=== PATIENT | female | born 1945 | race Caucasian/White ===

== ENCOUNTER 2024-01-06 07:14 | Day surgery (SDC) | payer MEDICARE, BC, SELFPAY ==
[2024-01-06 07:52] VITALS: BMI 19.1
== END 2024-01-06 09:15 | disposition home or self-care (01) ==
LOC: CATH 07:14
PROVIDERS: ATTENDING PHYSICIAN Internal Medicine Cardiovascular Disease; FAMILY PHYSICIAN Family Medicine; OTHER PHYSICIAN Internal Medicine Cardiovascular Disease
DX: I08.0 Rheumatic disorders of both mitral and aortic valves (principal); I25.10 Atherosclerotic heart disease of native coronary artery without angina pectoris; R06.02 Shortness of breath; I44.7 Left bundle-branch block, unspecified; I10 Essential (primary) hypertension; J44.9 Chronic obstructive pulmonary disease, unspecified; Z87.891 Personal history of nicotine dependence
CPT/HCPCS: 93312; 93320; 93325

== ENCOUNTER → 2024-02-06 10:03 | Outpatient (REF) | payer MEDICARE, BC, SELFPAY ==
[2024-02-06 11:06] LABS: Urine Albumin Trace (Neg - Trace); Urine Bilirubin Negative (Negative); Urine Character Clear (Clear); Urine Color Yellow; Urine Glucose Negative (Negative); Urine Ketone Negative (Negative); Urine Leukocyte Negative (Negative); Urine Nitrite Negative (Negative); Urine Occult Blood Trace (Negative); Urine Specific Gravity 1.015 (<1.030); Urine Urobilinogen Negative (Neg - 1+)
[2024-02-06 11:12] LABS: Calcium 11.6 mg/dl (8.4-10.2)
[2024-02-06 11:21] LABS: Total Iron Binding Capacity 323 ug/dl (265-497)
[2024-02-06 12:02] LABS: Urine Amorphous Seen; Urine Mucus Few
[2024-02-06 12:04] LABS: Urine Hyaline Cast 0-2 /LPF (0-2); Urine Red Blood Cell 0-2 /HPF (0-2)
[2024-02-06 16:08] LABS: Intact PTH 194.2 pg/ml (13.6-85.8)
== END ==
LOC: REG 10:03
PROVIDERS: ATTENDING PHYSICIAN Family Medicine
DX: R82.90 Unspecified abnormal findings in urine (principal); R06.02 Shortness of breath; I11.9 Hypertensive heart disease without heart failure; I10 Essential (primary) hypertension; J44.9 Chronic obstructive pulmonary disease, unspecified; E83.52 Hypercalcemia; I34.0 Nonrheumatic mitral (valve) insufficiency; R63.4 Abnormal weight loss; R79.9 Abnormal finding of blood chemistry, unspecified
CPT/HCPCS: 36415; 81003; 81015; 82103; 82104; 83519; 83550; 83970

== ENCOUNTER 2024-02-10 15:08 | Inpatient (IN) | payer MEDICARE, BC, SELFPAY ==
[2024-02-10] VITALS (13 sets, daily range): BP systolic 102–190; BP diastolic 44–126; BMI 18.9
--- NOTE | 2024-02-10 12:57 | ED.GENMED ---
History of Present Illness
General
Chief Complaint: Cardiac Symptoms
Source: patient
Exam Limitations: none
Time Seen by Provider: 02/10/24 12:43
Travel History
Have you had any contact with someone who has COVID-19?: No
Do you have any symptoms of coronavirus? Fever > 100 degrees, chills, cough, shortness of breath, sore throat, loss of taste or smell, muscle aches, or headache?: No
History of Present Illness
History of Present Illness:
See MDM
Past History
Past History
ED Past Medical History: COPD and HTN
Social History
Tobacco: Former smoker
Alcohol: None
Phy Exam
Physical Exam
Physical Exam:
See MDM
Course
Orders/Labs/Results
Orders:
Orders
02/10/24 12:31
Electrocardiogram (*1) Urgent
Reason for Study: Chest Pain
EKG- Treatment ONCE
02/10/24 12:54
Consult Cardiology [CARDIOLOGY CONSULT] Urgent
Consulting Provider: Flaquito Marcus
Was physician already notified: Yes
02/10/24 13:21
Type+Screen Urgent
Complete Blood Count/With Diff Urgent
Comprehensive Metabolic Panel Urgent
Magnesium Urgent
PTT Urgent
Prothrombin Time Urgent
02/10/24 13:50
Aspirin Chewable [Low Strength Aspirin] 324 mg PO NOW STA
02/10/24 13:52
HydrALAZINE [Apresoline] 5 mg IV NOW STA
02/10/24 14:30
Urinalysis Reflex To Culture Routine
02/10/24 14:34
Admit/Transfer Patient As Directed
Co-Sign Provider:
Level of Care: Inpatient admission
Assign to:: Telemetry
Physician / Group: jose
Diagnosis: NSVT
Reason for Telemetry: Arrhythmia
Date to Stop Telemetry: 02/13/24
Time to Stop Telemetry: 11:00
Reason for Hospitalization: NSVT
Expected length of stay greater than two midnights?: Yes
ELOS- Estimated Length of Stay in days: 3
I certify the patient meets the requirements for IP care: Yes
02/10/24 14:35
Code Status As Directed
Resuscitation Status: Full Code
02/10/24 18:00
HydrALAZINE [Apresoline] 5 mg IV Q4HPRN PRN
02/11/24 08:00
Aspirin Chewable [Low Strength Aspirin] 81 mg PO DAILY
02/13/24 11:00
DC Protocol for Telemetry ONCE
Abnormal Lab Results
02/10/24
13:21
WBC 12.7 H 10^3/uL
(4.8-10.8)
MPV 10.5 H fL
(7.4-10.4)
Abs Immat Gran (auto) 0.1 H 10^3/uL
(0-0.05)
Absolute Neuts (auto) 9.9 H 10^3/uL
(1.4-6.5)
Absolute Monos (auto) 1.0 H 10^3/uL
(0.1-0.6)
Neutrophils % 78.0 H %
(42.2-75.2)
Lymphocytes % 12.5 L %
(20.5-51.1)
BUN 22 H mg/dl
(7-17)
Calcium 11.6 H mg/dl
(8.4-10.2)
02/10/24 13:21
02/10/24 13:21
Vital Signs
Initial and Last Documented VS:
Initial Vital Signs
Temp Pulse Resp BP Pulse Ox
97.8 F 74 20 190/78 96
02/10/24 12:26 02/10/24 12:26 02/10/24 12:26 02/10/24 12:26 02/10/24 12:26
Last Documented Vital Signs
Temp Pulse Resp BP Pulse Ox
97.8 F 65 24 173/49 95
02/10/24 12:26 02/10/24 14:30 02/10/24 14:30 02/10/24 14:13 02/10/24 14:00
MDM/Problems Addressed
Differential Diagnosis Includes:
HPI and MDM Narrative:
78-year-old female presenting from the cardiac office for evaluation of nonsustained V. tach. This was a routine cardiac a stress test. When she was found going to be tach, she was sent in for lighted catheterization. Currently, patient denies
chest pain or shortness of breath
Patient is well-appearing and nontoxic exam. EKG consistent with left bundle branch block. She is currently denying any chest pain or shortness of breath. Will make cardiology aware
Physical exam
General: Well appearing and non-toxic
HEENT: protecting airway
Neck: appears supple
CV: No evidence of cyanosis. Regular rate and rhythm
Resp: No accessory muscle use. Lungs clear
Abd: Non-distended
Extremities: No deformities. No leg edema
Neuro: alert
Psych: Normal affect
Skin: Intact
Problems Addressed including Acute and Chronic Conditions affecting care:
1. V. tach
Acuity: acute
Prognosis: unstable
Details: Patient currently in sinus rhythm. Given the recent V. tach on the stress test, will have cardiology evaluate.
Updates
Patient remains symptom-free. Cardiology at bedside. Will admit
Differential Diagnosis (but not limited to): V. tach, ACS
Testing considered: Chest x-ray
Drug therapy (if applicable): OTC meds, please see d/c instruction regarding Rx drugs
Amount and/or Complexity of Data Reviewed
Clinical info obtained from: Patient
External data reviewed: N/A
Labs I independently reviewed (but not limited to): [Mild leukocytosis
Radiology: N/A
Pulse Ox: not hypoxic
EKG independently reviewed: Sinus rhythm, left axis, left bundle but
Cash Grain Grower: Sinus rhythm
Critical Care: N/A
Risk of Complication:
Social Determinants of health: Good social support
Discussed with other providers: Cardiology
Escalation of Care includes Admit/Obs: Given the V. tach, will admit for cath
Occasional wrong word or 'sound a like' substitutions may have occurred due to the inherent limitations of voice recognition software. Read the chart carefully and recognize, using context, where substitutions have occurred.
*Critical Care Note
Total Time (30-74mins, 75-104mins- exclusive of procedures): Not Applicable
ED Attending Note
-
Portions of this chart may have been created with voice recognition software.� Occasional wrong word or��sound alike� substitutions may have occurred due to the inherent limitations of voice recognition software.
Discharge Plan
Departure
Patient Disposition: Admit
Date of Disposition: 02/10/24
Time of Disposition: 14:20
Admit to: IVU
Presentation/result/management discussed w/ accepting MD/DO: Hospitalist
Discharge Problem:
V-tach
Prescriptions:
No Action
diltiazem HCl 120 mg Capsule,Extended Release 24 Hr
120 mg PO DAILY
lisinopril 10 mg Tablet
10 mg PO QPM
Ocuvite Tablet
1 tab PO BID
rosuvastatin 10 mg Tablet
10 mg PO QPM
bisoprolol fumarate 5 mg Tablet
5 mg PO DAILY@1100
Trelegy Ellipta 100-62.5-25 mcg Blister With Device
1 inh INHALATION R DAILY
Referrals:
Quita Lopez MD [Family Provider] -
Interventions
Interventions:
*Risk Screen - Suicide Last Done: 02/10/24 12:26
*General Assessment Last Done: 02/10/24 12:26
*Neglect/Abuse Screening Last Done: 02/10/24 12:26
ED- Fall Risk Assessment Last Done: 02/10/24 12:57
ED- Pulmonary Assessment Last Done: 02/10/24 12:57
ED- Cardiac Assessment Last Done: 02/10/24 12:56
Discharge Date and Time
Print Language: [place]
[2024-02-10 13:37] LABS: % Basophils 0.6 % (0-2); % Eosinophils 0.9 % (0-6); % Immature Granulocytes 0.4 % (0-0.5); % Lymphocytes 12.5 % (20.5-51.1); % Monocytes 7.6 % (1.7-9.3); Absolute Basophils 0.1 10^3/uL (0-0.2); Absolute Eosinophils 0.1 10^3/uL (0-0.7); Absolute Immature Granulocytes 0.1 10^3/uL (0-0.05); Absolute Lymphocytes 1.6 10^3/uL (1.2-3.4); Absolute Neutrophils 9.9 10^3/uL (1.4-6.5); Hematocrit 42.1 % (37.0-47.0); Hemoglobin 13.9 g/dL (12.0-16.0); Mean Corpuscular Volume 93.8 fL (81.0-99.0); Mean Platelet Volume 10.5 fL (7.4-10.4); Nucleated Red Blood Cells % 0 %; Platelet Count 276 10^3/uL (130-400); Red Blood Cell Count 4.49 10^6/uL (4.20-5.40); White Blood Cell Count 12.7 10^3/uL (4.8-10.8)
--- NOTE | 2024-02-10 13:41 | CON.CAR ---
Addendum entered and electronically signed by Flaquito Marcus MD 02/10/24 14:59:
Patient seen and examined in collaboration with PARTY CHIEF; agree with below.
-78-year-old female with hypertension, LBBB, COPD, hypercalcemia, and moderate aortic regurgitation referred to the ER after having NSVT on a stress test.
-The patient denies any current cardiac symptoms.
-The patient will be preliminarily scheduled for cardiac catheterization tomorrow; keep NPO after midnight.
-Trend WBC (12.7--etiology unclear); workup/management as per primary Hospitalist team.
-Hypercalcemia (11.6--etiology unclear); workup/management as per primary Hospitalist team.
-threat monitoring analyst.
Original Note:
Consultation
Consultation Request
Date/Time Consultation Requested: 02/10/2024 12:54
Date/Time Consultation Performed: 02/10/2024 13:10
Requesting Provider: Dr. Acevedo
Performing Provider: KELLEN Daniels for Dr. Marcus
Reason for Consultation: Abnormal Lexiscan nuclear stress test
Medical History
-
Chief Complaint: Abnormal stress test
History of Present Illness:
Nessa Resendiz is a 78-year-old female (known to Dr. Gillis, her primary audio production manager), with hypertension, LBBB, COPD, hypercalcemia, former smoker, aortic regurgitation, and mildly dilated ascending aorta who presents after having an abnormal
Lexiscan nuclear stress test. She had NSVT during testing. Nuclear imaging with possible prior infarct. She did not have any chest pain nor shortness of breath with the arrhythmia. The stress test was prompted by complaints of shortness of
breath. She had her aortic regurgitation evaluated by SHELDON and it was moderate in severity. Ischemic causes being evaluated for shortness of breath.
She is supposed to leave on 02/13/2024 for her 79th birthday trip to [place].
Past Medical History
Past Medical History: COPD and HTN
Allergies / Home Medications
Allergy/AdvReac Type Severity Reaction Status Date / Time
No Known Allergies Allergy Verified 02/10/24 12:30
�Medication �Instructions �Recorded �Confirmed �Type
diltiazem HCl 120 mg capsule,24 120 mg PO DAILY 01/06/24 02/10/24 History
hr,extended release
lisinopril 10 mg tablet 10 mg PO QPM 01/06/24 02/10/24 History
rosuvastatin 10 mg tablet 10 mg PO QPM 01/06/24 02/10/24 History
vitamin A-vitamin C-vit E-min 1 tab PO BID 01/06/24 02/10/24 History
tablet
bisoprolol fumarate 5 mg tablet 5 mg PO DAILY@1100 02/10/24 02/10/24 History
fluticasone fur. 100 mcg-umeclid 1 inh inhalation R DAILY 02/10/24 02/10/24 History
62.5 mcg-vilant 25 mcg
inhalat.powder (Trelegy Ellipta)
Physical Exam
Vital Signs
Temp Pulse Resp BP Pulse Ox
97.8 F 74 20 190/78 96
02/10/24 12:26 02/10/24 12:26 02/10/24 12:26 02/10/24 12:26 02/10/24 12:26
Lab Results
02/10/24 13:21
Impression / Plan
-
Abnormal stress test
Ventricular tachycardia
-Chest pain-free
-Cardiac catheterization
-She did not take her bisoprolol today, consider transitioning to metoprolol
-She is not an ideal candidate for amiodarone given her lung disease
Hypertension
-Above goal, hydralazine 5 mg IV x 1 now
-Hold NILA in the setting of cardiac catheterization
Aortic regurgitation, moderate, eccentric
Mildly dilated ascending aorta, 4.1 cm by SHELDON
Coronary artery calcification on CT, started on rosuvastatin 10 mg
LBBB, present as a new patient for office visit, likely chronic
COPD, on Trelegy, follows with pulmonary in the outpatient setting
Hypercalcemia, with elevated PTH
Former smoker, continue cessation recommended
[2024-02-10 13:48] LABS: ALT (SGPT) 21 U/L (0-35); AST (SGOT) 26 U/L (14-36); Albumin 4.6 g/dl (3.5-5.0); Alkaline Phosphatase 94 U/L (38-126); Blood Urea Nitrogen 22 mg/dl (7-17); Calcium 11.6 mg/dl (8.4-10.2); Carbon Dioxide 29 mmol/L (22-30); Chloride 104 mmol/L (98-107); Glucose 95 mg/dl (70-99); Magnesium 1.6 mg/dl (1.6-2.3); Potassium 4.1 mmol/L (3.5-5.1); Sodium 138 mmol/L (135-145); Total Bilirubin 0.7 mg/dl (0.2-1.3); Total Protein 7.4 g/dl (6.3-8.2); eGFR > 60.00
[2024-02-10 13:50] LABS: APTT 27.5 Sec (23.4-35.0); INR 1.07; PT 13.8 Sec (11.4-14.6)
--- NOTE | 2024-02-10 14:04 | HPS.HSE ---
Family Physician
<KELLEN Martin - Last Filed: 02/10/24 14:39>
-
Family Physician: Quita Lopez
Chief Complaint
<KELLEN Martin - Last Filed: 02/10/24 14:39>
-
abnormal stress test
History of Present Illness
Nessa Resendiz is a 78-year-old female with PMH for hypertension, LBBB, COPD, hypercalcemia, former smoker, aortic regurgitation, and mildly dilated ascending aorta who presents after having an abnormal Lexiscan nuclear stress test. She had NSVT during
testing. patient denied any chest pain nor shortness of breath. she had stress test due to the abnormal EKG in the past. denied headache, dizziness, syncopal episode patient denied abdominal pain, nausea, vomiting, diarrhea. Patient denied dysuria
hematuria.
Medical History
<KELLEN Martin - Last Filed: 02/10/24 14:39>
Past Medical History
Past Medical History: Reports Other
Additional Past Medical History:
COPD
Hypertension
Mitral regurgitation
Left bundle branch block
Cataracts
Irregular heartbeat
Past Surgical History: Reports Other
Additional Past Surgical History:
Left elbow fracture repair
Left eye cataract surgery
Social History
Tobacco: Former Smoker
Alcohol: Occasional
Drug: None
Family History
Family History: Not pertinent
Allergies / Home Medications
Allergies reflects when Allergies were last updated in [employer].
Home Medications with original date entered in [employer]
Allergy/Medication List:
Allergies
Allergy/AdvReac Type Severity Reaction Status Date / Time
No Known Allergies Allergy Verified 02/10/24 12:30
Home Medications
diltiazem HCl 120 mg capsule,24 hr,extended release 120 mg PO DAILY 01/06/24
lisinopril 10 mg tablet 10 mg PO QPM 01/06/24
rosuvastatin 10 mg tablet 10 mg PO QPM 01/06/24
vitamin A-vitamin C-vit E-min tablet 1 tab PO BID 01/06/24
bisoprolol fumarate 5 mg tablet 5 mg PO DAILY@1100 02/10/24
fluticasone fur. 100 mcg-umeclid 62.5 mcg-vilant 25 mcg inhalat.powder (Trelegy Ellipta) 1 inh inhalation R DAILY 02/10/24
Review of Systems
<KELLEN Martin - Last Filed: 02/10/24 14:39>
-
Constitutional: Reports No Symptoms
EENT: Reports No Symptoms
Respiratory: Reports No Symptoms
Cardiac: Reports No Symptoms
Abdomen/GI: Reports No Symptoms
: Reports No Symptoms
Musculoskeletal: Reports No Symptoms
Skin: Reports No Symptoms
Neurological: Reports No Symptoms
Endocrine: Reports No Symptoms
Hematologic/Lymphatic: Reports No Symptoms
Psych: Reports No Symptoms
Physical Exam
<KELLEN Martin - Last Filed: 02/10/24 14:39>
Vital Signs
Vital Signs
Temp Pulse Resp BP Pulse Ox
97.8 F 74 20 190/78 96
02/10/24 12:26 02/10/24 12:26 02/10/24 12:26 02/10/24 12:26 02/10/24 12:26
Physical Exam
General: Well Developed, Well Nourished and No Apparent Distress
HEENT: NormoCephalic, Moist mucous membranes and Atraumatic
Respiratory: Clear
Cardiac: S1/S2 and Regular Rhythm; No Murmur or Rub
GI: Soft, Non Tender, Non Distended and Normal Bowel Sounds; No Organomegaly
Rectal: Deferred by Provider
Musculoskeletal: No Clubbing, No Cyanosis and No Edema
Skin: No Rash
Neuro: AO x 3 and Nonfocal/grossly intact
Psych: Calm
Laboratory Results
<KELLEN Martin - Last Filed: 02/10/24 14:39>
-
02/10/24 13:21
02/10/24 13:21
Laboratory Results
PT 13.8 Sec (11.4-14.6) 02/10/24 13:21
INR 1.07 02/10/24 13:21
APTT 27.5 Sec (23.4-35.0) 02/10/24 13:21
Total Bilirubin 0.7 mg/dl (0.2-1.3) 02/10/24 13:21
AST 26 U/L (14-36) 02/10/24 13:21
ALT 21 U/L (0-35) 02/10/24 13:21
Alkaline Phosphatase 94 U/L (38-126) 02/10/24 13:21
Data Reviewed
<KELLEN Martin - Last Filed: 02/10/24 14:39>
-
Lab Data: Labs Reviewed by me
Impression/Plan
<KELLEN Martin - Last Filed: 02/10/24 14:39>
-
# Ventricular tachycardia
-EKG with sinus Rhythm with 1st degree AV block,
-trend trop and EKGs
-Cardiology following
# Leukocytosis likely stress
-WBC 12.7, afebrile
-Obtain urinalysis
# Hypertension urgency
-Blood pressure elevated in ER
-Received a dose of hydralazine in ER
-bisoprolol, diltiazem continued
-Hold lisinopril
# History of COPD
-Not in acute exacerbation
-Trelegy continued
# Hyperlipidemia
-Statin continued
# DVT prophylaxis
-SCD
# CODE STATUS
-Full code
<Marleni Pichardo MD - Last Filed: 02/10/24 16:25>
-
78 y/o female underwent stress echo with VT admitted for cath tomorrow..
I saw and examined the patient.
Denies any complaints
The BUNDLES HANGER or PA's note was reviewed and I agree with the note.
CVS: S1-S2 normal
Chest: CTA B/L
Abdomen: Soft, NT / Bowel sounds present
Extremities: No edema, normal pulses
DTP OPERATOR: Non focal exam
# Ventricular tachycardia
-EKG with sinus Rhythm with 1st degree AV block,
-trend trop and EKGs
-Cardiology following
# LBBB
# Leukocytosis likely stress
-WBC 12.7, afebrile
-Obtain urinalysis
# Hypertension urgency
-Blood pressure elevated in ER
-Received a dose of hydralazine in ER
-Bisoprolol, diltiazem 120 daily
-Cardiology wants to hold lisinopril for cath
# History of COPD
-Not in acute exacerbation
-Trelegy continued
-Stable
-Normal alpha one antitrypsin level
# Low normal Mag- Replace in the setting of Arrhythmias
# Hypercalcemia is NOT NEW
-Calcium was 10.11 Sep 2023
-Patient already has diagnosed hyperparathyroidism per labs- being worked up by PCP
-No H/O Kidney stones
-She does not take calcium supplements . Takes Vit D
-She is not sure what her 24 hour urine showed.
- Sestamibi Scan can be considered as OP
-May benefit from Bisphosphonates/calcimimetics (Cinacalcet)
-OP Endocrine eval.
# Hyperlipidemia/Atherosclerosis
-Statin
# 6.4 cm cyst in the dome of the liver
# Diverticulosis
# DVT prophylaxis
-Lovenox
# CODE STATUS
-Full code
[2024-02-10] MEDS: LOW STRENGTH ASPIRIN 324 MG PO (14:12)
[2024-02-10] MEDS: APRESOLINE 5 MG IV (14:13)
[2024-02-10] MEDS: MAGNESIUM SULFATE 50 IV (15:45)
[2024-02-10] MEDS: CRESTOR 10 MG PO (18:39)
[2024-02-10] MEDS: LOVENOX 40 MG SC (18:39)
[2024-02-10 20:04] LABS: Troponin I 0.021 ng/ml
[2024-02-10] MEDS: SYMBICORT 80/4.5 MCG INHALER INH (20:44)
[2024-02-10 22:50] LABS: Troponin I 0.026 ng/ml
[2024-02-11] VITALS (13 sets, daily range): BP systolic 111–186; BP diastolic 45–90; BMI 19.0
[2024-02-11 01:54] LABS: Troponin I 0.029 ng/ml
[2024-02-11 04:58] LABS: Hematocrit 37.6 % (37.0-47.0); Hemoglobin 12.5 g/dL (12.0-16.0); Mean Corp Hgb Conc. 33.2 g/dL (33.0-37.0); Mean Corpuscular Hgb 32.1 pg (27.0-31.0); Mean Corpuscular Volume 96.4 fL (81.0-99.0); Mean Platelet Volume 9.9 fL (7.4-10.4); Platelet Count 209 10^3/uL (130-400); Red Cell Dist. Width 13.1 % (11.5-14.5); White Blood Cell Count 8.6 10^3/uL (4.8-10.8)
[2024-02-11 05:27] LABS: Blood Urea Nitrogen 29 mg/dl (7-17); Calcium 10.7 mg/dl (8.4-10.2); Carbon Dioxide 26 mmol/L (22-30); Chloride 108 mmol/L (98-107); Estimated Creatinine Clearance 60 ml/min; Glucose 104 mg/dl (70-99); HDL Cholesterol 86 mg/dl; Potassium 4.3 mmol/L (3.5-5.1); Sodium 137 mmol/L (135-145); Triglyceride 86 mg/dl (10-149); Very Low Density Lipoprotein 17 mg/dl (0-30); eGFR > 60.00
[2024-02-11 05:28] LABS: LDL Cholesterol, Calculated 52 mg/dl; Total Cholesterol 155 mg/dl (50-199)
--- NOTE | 2024-02-11 05:37 | PTCARENOTE ---
Patient received from ED, walked into room, gait steady, denies pain or SOB. NSR 1st degree HB, BBB. NPO for cardiac catheterization today, lights dimmed, call love in reach
--- NOTE | 2024-02-11 08:00 | PTCARENOTE ---
Patient received from prev RN. denies pain or SOB. NSR 1st degree HB, BBB. NPO for cardiac catheterization today. walking halls. independent in care. daughter at bedside. RA. no complaints. will continue ot monitor.
[2024-02-11] MEDS: SYMBICORT 80/4.5 MCG INHALER 2 PUFF INH (08:58)
[2024-02-11] MEDS: SPIRIVA RESPIMAT 2.5 MCG 2 PUFF INH (08:59)
[2024-02-11 09:24] LABS: Glycohemoglobin (HgbA1c) 5.3 % (4.0-5.6)
[2024-02-11] MEDS: CARDIZEM CD 120 MG PO (09:42)
[2024-02-11] MEDS: LOW STRENGTH ASPIRIN 81 MG PO (09:43)
--- NOTE | 2024-02-11 10:16 | W.PN.HOSP.TC ---
Today's Communication/Plan
-
Cath today
Assessment / Plan
Assessment / Plan
CVS: S1-S2 normal
Chest: CTA B/L
Abdomen: Soft, NT / Bowel sounds present
Extremities: No edema, normal pulses
GEOPHYSICAL DATA TECHNICIAN: Non focal exam
# Ventricular tachycardia
-EKG with sinus Rhythm with 1st degree AV block.
-Trend trop and EKGs
-Cardiology following
# LBBB
# Leukocytosis likely stress
-Resolved
# Hypertension urgency
-Blood pressure elevated in ER
-Received a dose of hydralazine in ER
-Bisoprolol, diltiazem 120 daily, Restart Lisinopril
# History of COPD
-Not in acute exacerbation
-Trelegy
-Stable
-Normal alpha one antitrypsin level
# Low normal Mag- Replace in the setting of Arrhythmias
# Hypercalcemia is NOT NEW
-Calcium was 10.11 Sep 2023
-Patient already has diagnosed hyperparathyroidism per labs- being worked up by PCP
-No H/O Kidney stones
-She does not take calcium supplements . Takes Vit D
-She is not sure what her 24 hour urine showed.
-Sestamibi Scan can be considered as OP
-May benefit from Bisphosphonates/calcimimetics (Cinacalcet)
-OP Endocrine eval.
-Calcium 10.7 today. Suspect calcium was high yesterday secondary to dehydration from being n.p.o. for stress test
# Hyperlipidemia/Atherosclerosis
-Statin
# 6.4 cm cyst in the dome of the liver
# Diverticulosis
# DVT prophylaxis
-Lovenox
# CODE STATUS
-Full code
Discussed with nursing
Anticipated Discharge: Within 24 hours
Subjective/Interval History
-
Date of Service: February 11, 2024
Objective Data
-
Labs:
Laboratory Results
02/11/24
04:47
WBC 8.6
Hgb 12.5
Hct 37.6
Plt Count 209 D
Sodium 137
Potassium 4.3
Chloride 108 H
Carbon Dioxide 26
BUN 29 H
Creatinine 0.6
Glucose 104 H
Calcium 10.7 H
Vital Signs:
Vital Signs
Temp Pulse Resp BP Pulse Ox
98.2 F 71 18 169/55 94
02/11/24 07:22 02/11/24 09:42 02/11/24 07:22 02/11/24 09:42 02/11/24 07:22
[2024-02-11] MEDS: ZEBETA 5 MG PO (11:09)
[2024-02-11] MEDS: NSS 1000 IV (11:13)
--- NOTE | 2024-02-11 11:28 | CM ---
Chart reviewed. Patient is independent of ADLS, lives alone in a 2 STH, 1 VAL, 0 DME. Plan is for the patient to return home. CM to follow
--- NOTE | 2024-02-11 15:00 | PTCARENOTE ---
upset about being NPO all day and night without update on cath time. continuously asking for update even though i have checked again and again and have no update. attempting to provide emotional support. telling me they will leave if they dont get
medical care. attempting to deescalate situation. will continue ot monitor.
--- NOTE | 2024-02-11 15:57 | W.PN.CD ---
Today's Communication / Plan
-
Cardiac catheterization today.
Impression / Plan
-
Impression/Plan: 78 y/o female with coronary artery calcification, HTN, former smoker, COPD and LBBB admitted with VT after stress test.
#Abnormal stress test/Ventricular tachycardia
-Chest pain-free.
-Troponin negative.
-Cardiac catheterization.
Hypertension
-Chronic, above goal.
-Continue bisoprolol, diltiazem. ACEI on hold in anticipation of cardiac catheterization.
-Hydralazine 5 mg IV PRN SBP > 180.
#Coronary artery calcification on CT
-Chronic, stable.
-Started on rosuvastatin 10 mg.
#COPD
-Stable, not in exacerbation.
-Continue Trelegy.
-Follow up with pulmonary in the outpatient setting.
#Aortic regurgitation, moderate, eccentric.
#Mildly dilated ascending aorta, 4.1 cm by SHELDON.
#LBBB, present as a new patient for office visit, likely chronic.
#Hypercalcemia, with elevated PTH
#Former smoker, continue cessation recommended
Subjective/Interval History:
No acute events.
No subjective complaints.
Mild/moderate hypertension.
DATA:
TTE, 10/16/2023:
CONCLUSIONS
Left ventricle is moderately dilated with severe concentric hypertrophy and
normal left ventricular systolic function. Left ventricular ejection fraction
is 76%, by Lemus' s method. Normal diastolic function.
Normal right ventricular size and function.
Moderate left atrial dilation.
Mild right atrial dilation.
Mild to moderate mitral regurgitation. There is systolic anterior motion of
the chordae without LVOT obstruction.
Moderate aortic root dilation for BSA. Ascending aorta is 4.1 cm.
No evidence of pulmonary hypertension.
No prior study available for comparison.
Physical Exam
Vital Signs/Labs
Vital Signs
Temp Pulse Resp BP Pulse Ox
36.7 C 65 18 148/60 93
02/11/24 15:30 02/11/24 15:00 02/11/24 15:30 02/11/24 11:09 02/11/24 15:30
02/10/24 02/11/24 02/12/24
11:59 11:59 11:59
Actual Weight 50.3 kg 50.2 kg
02/11/24 04:47
02/11/24 04:47
PT 13.8 Sec (11.4-14.6) 02/10/24 13:21
INR 1.07 02/10/24 13:21
APTT 27.5 Sec (23.4-35.0) 02/10/24 13:21
Magnesium 1.6 mg/dl (1.6-2.3) 02/10/24 13:21
Triglycerides 86 mg/dl (10-149) 02/11/24 04:47
LDL Cholesterol, Calc 52 mg/dl 02/11/24 04:47
VLDL Cholesterol, Calc 17 mg/dl (0-30) 02/11/24 04:47
HDL Cholesterol 86 mg/dl 02/11/24 04:47
LAB Results
02/10/24 02/10/24 02/11/24
19:29 22:18 01:15
Troponin I 0.021 0.026 0.029
Physical Exam
Constitutional: No acute distress
EENT: Anicteric and Moist mucous membranes
Cardiovascular: Rhythm & rate is regular, Pedal edema is absent, JVD pressure is normal, S1S2 is normal and Murmur/rub/gallop absent
Respiratory: Respiratory effort normal and Other (Decreased throughout.)
GI: Soft, Distention absent, Flat, Non tender and Normal bowel sounds
Neuro/Psych: AO x 3
Data Reviewed
-
Date of Service: February 11, 2024
Medical Decision Making: Reviewed Test Results, Independent Historian Assessment, Test Interpretation and Review of Case with other Provider
EKG: Tracing Personally Visualized and interpreted and Report Reviewed by me
Echo: Tracing Personally Visualized and interpreted and Report Reviewed by me
X-Ray/CT/US/MRI/NUC/PET: Image Personally Visualized and interpreted and Report Reviewed by me
Medical Tests (PFT, Pathology etc): Image Personally Visualized and interpreted and Report Reviewed by me
Labs: Labs Reviewed by me
--- NOTE | 2024-02-11 17:25 | PTCARENOTE ---
Patient left for stores laborer. Daughter at bedside.
--- NOTE | 2024-02-11 18:16 | ITS.CL.CATH ---
Residential Real Estate Sales Manager - Catheterization
Cardiac Catheterization
Procedure Report:
CARDIAC CATHETERIZATION REPORT
Date of Procedure: 02/11/2024
Referring: Flaquito Marcus M.D.
INDICATION: Nonsustained ventricular tachycardia during regadenoson stress test.
PROCEDURE:
1. Left heart catheterization.
2. Coronary angiography
ACCESS:
6 German right radial artery.
CATHETERS:
1. 5 German JR4.
2. 4 German JL 4.
HEMODYNAMIC DATA
Weight (kg): 50.3
AO (s/d/x, mmHg): 177/68/100
LV (s/x mmHg): 180/25
LEFT VENTRICULOGRAPHY: Not performed.
CORONARY ANGIOGRAPHY
Dominance: Right.
Left Main: Large size, trifurcating vessel. There is no coronary artery disease.
LAD: Large size vessel giving rise to 2 significant diagonals. There is at least moderate external calcification. There is a 40% lesion in the ostium of the first diagonal.
Ramus: Medium to large artery supplying the majority of the lateral/anterolateral wall. There is no coronary artery disease.
Circumflex: Small size, vestigial vessel running in the AV groove. There is no coronary artery disease.
RCA: Large size, dominant vessel with an enormous posterolateral arcade. There is no coronary artery disease.
INTERVENTION(S)
None.
Closure Device: Vascular band.
Radiation (mGy): 174.78
DAP (cm2.Gy): 11.8686
Fluoroscopy time (minutes): 6.7
Sedation time (minutes): 26
CONCLUSIONS
1. Right dominant circulation with moderate, external calcification of the LAD and a 40% lesion in the ostium of the first diagonal.
2. Severely elevated filling pressures (LVEDP = 25 mmHg at 50.3 kg).
3. Severe subclavian, brachial and radial artery tortuosity with multiple vessel loops, requiring transition to 4 German catheters and an Amplatz extra-stiff wire for catheter exchanges.
4. No obvious ischemic source of ventricular tachycardia.
RECOMMENDATIONS:
1. Expectant management after cardiac catheterization via right radial approach.
2. Limited weight bearing on the right wrist for one week.
3. Primary prevention with high-dose, high potency statin given coronary artery calcification.
4. Consider diuresis given severe elevation of filling pressures.
5. Any future cardiac catheterization should be performed from a femoral approach given the severe tortuosity of the radial/brachial/subclavian system.
Copy to: Isrrael Zepeda M.D., Flaquito Marcus M.D., Quita Lopez M.D.
Juliocesar Lou DO, FACC, FACP
[2024-02-11] MEDS: CRESTOR 10 MG PO (18:43)
[2024-02-11] MEDS: ZESTRIL 10 MG PO (18:44)
[2024-02-11] MEDS: LOVENOX SC ×2 (18:44→18:47)
--- NOTE | 2024-02-11 18:47 | PTCARENOTE ---
Received patient from laboratory director. Patient agitated and angry that RN is taking her BP. Patient instructed to not use her right hand to push herself out of bed. Patient attempted to get OOb x2 without calling and insists aon using her right hand to
push herself up.
[2024-02-11] MEDS: SYMBICORT 80/4.5 MCG INHALER INH (19:31)
[2024-02-12] MEDS: TYLENOL 650 MG PO (00:51)
[2024-02-12 00:57] VITALS: BP 149/50
--- NOTE | 2024-02-12 00:59 | PTCARENOTE ---
R radial band off after multiple attempts to remove air but continued oozing.
[2024-02-12 04:26] VITALS: BP 140/52
[2024-02-12 05:21] LABS: Hematocrit 36.6 % (37.0-47.0); Hemoglobin 12.1 g/dL (12.0-16.0); Mean Corp Hgb Conc. 33.1 g/dL (33.0-37.0); Mean Corpuscular Hgb 31.4 pg (27.0-31.0); Mean Corpuscular Volume 95.1 fL (81.0-99.0); Mean Platelet Volume 10.4 fL (7.4-10.4); Platelet Count 210 10^3/uL (130-400); Red Blood Cell Count 3.85 10^6/uL (4.20-5.40); Red Cell Dist. Width 12.9 % (11.5-14.5); White Blood Cell Count 8.8 10^3/uL (4.8-10.8)
[2024-02-12 05:57] LABS: Blood Urea Nitrogen 24 mg/dl (7-17); Calcium 10.3 mg/dl (8.4-10.2); Carbon Dioxide 25 mmol/L (22-30); Chloride 110 mmol/L (98-107); Estimated Creatinine Clearance 60 ml/min; Glucose 94 mg/dl (70-99); Potassium 4.3 mmol/L (3.5-5.1); Sodium 137 mmol/L (135-145); eGFR > 60.00
[2024-02-12 06:48] VITALS: BP 145/58
--- NOTE | 2024-02-12 07:14 | W.PN.CD ---
Today's Communication / Plan
-
Start furosemide 40 mg PO daily today.
Life-Vest.
Discharge planning.
Impression / Plan
-
Impression/Plan: 78 y/o female with coronary artery calcification, HTN, former smoker, COPD and LBBB admitted with VT after stress test.
#Abnormal stress test/Ventricular tachycardia
-Chest pain-free.
-Troponin negative.
-SHELDON (01/06/2024) shows LVEF 55-60%.
-Cardiac catheterization shows no occlusive CAD. LVEDP at the time of cath is severely elevated at 25 mmHg.
-She does report dyspnea on exertion but no chest pain. Star furosemide 40 mg daily this morning.
-After review with EP, the patient does have concerning VT and would benefit from Life-Vest for outpatient monitoring/protection.
Hypertension
-Chronic, above goal.
-Continue bisoprolol, diltiazem. ACEI on hold in anticipation of cardiac catheterization.
-Hydralazine 5 mg IV PRN SBP > 180.
#Coronary artery calcification on CT
-Chronic, stable.
-Increase rosuvastatin to 20 mg.
#COPD
-Stable, not in exacerbation.
-Continue Trelegy.
-Follow up with pulmonary in the outpatient setting.
#Aortic regurgitation, moderate, eccentric.
#Mildly dilated ascending aorta, 4.1 cm by SHELDON.
#LBBB, present as a new patient for office visit, likely chronic.
#Hypercalcemia, with elevated PTH
#Former smoker, continue cessation recommended
Subjective/Interval History:
Cath yesterday shows a 40% ostial diagonal, no nidus for VT.
LVEDP is severely elevated (25 mmHg).
DATA:
Cardiac Catheterization, 02/11/2024:
CONCLUSIONS
1. Right dominant circulation with moderate, external calcification of the LAD and a 40% lesion in the ostium of the first diagonal.
2. Severely elevated filling pressures (LVEDP = 25 mmHg at 50.3 kg).
3. Severe subclavian, brachial and radial artery tortuosity with multiple vessel loops, requiring transition to 4 Vietnamese catheters and an Amplatz extra-stiff wire for catheter exchanges.
4. No obvious ischemic source of ventricular tachycardia.
TTE, 10/16/2023:
CONCLUSIONS
Left ventricle is moderately dilated with severe concentric hypertrophy and
normal left ventricular systolic function. Left ventricular ejection fraction
is 76%, by Lemus' s method. Normal diastolic function.
Normal right ventricular size and function.
Moderate left atrial dilation.
Mild right atrial dilation.
Mild to moderate mitral regurgitation. There is systolic anterior motion of
the chordae without LVOT obstruction.
Moderate aortic root dilation for BSA. Ascending aorta is 4.1 cm.
No evidence of pulmonary hypertension.
No prior study available for comparison.
Physical Exam
Vital Signs/Labs
Vital Signs
Temp Pulse Resp BP Pulse Ox
36.7 C 67 18 145/58 96
02/12/24 04:44 02/12/24 07:00 02/12/24 04:44 02/12/24 06:48 02/12/24 04:44
02/10/24 02/11/24 02/12/24
11:59 11:59 11:59
Actual Weight 50.3 kg 50.2 kg
02/12/24 04:34
02/12/24 04:34
PT 13.8 Sec (11.4-14.6) 02/10/24 13:21
INR 1.07 02/10/24 13:21
APTT 27.5 Sec (23.4-35.0) 02/10/24 13:21
Magnesium 1.6 mg/dl (1.6-2.3) 02/10/24 13:21
Triglycerides 86 mg/dl (10-149) 02/11/24 04:47
LDL Cholesterol, Calc 52 mg/dl 02/11/24 04:47
VLDL Cholesterol, Calc 17 mg/dl (0-30) 02/11/24 04:47
HDL Cholesterol 86 mg/dl 02/11/24 04:47
LAB Results
02/10/24 02/10/24 02/11/24
19:29 22:18 01:15
Troponin I 0.021 0.026 0.029
Physical Exam
Constitutional: No acute distress and Comfortable
EENT: Anicteric and Moist mucous membranes
Cardiovascular: Rhythm & rate is regular, Pedal edema is absent, JVD pressure is normal, S1S2 is normal and Murmur/rub/gallop absent
Respiratory: Respiratory effort normal, Lungs clear to auscul., Wheeze Absent, Crackles Absent and Rhonchi Absent
GI: Soft, Distention absent, Flat, Non tender and Normal bowel sounds
Neuro/Psych: AO x 3
Other: Cath Site (Right radial access site is C/D/I.)
Data Reviewed
-
Date of Service: February 12, 2024
Medical Decision Making: Reviewed Test Results, Independent Historian Assessment and Test Interpretation
EKG: Tracing Personally Visualized and interpreted and Report Reviewed by me
Echo: Tracing Personally Visualized and interpreted and Report Reviewed by me
X-Ray/CT/US/MRI/NUC/PET: Image Personally Visualized and interpreted and Report Reviewed by me
Medical Tests (PFT, Pathology etc): Image Personally Visualized and interpreted and Report Reviewed by me
Labs: Labs Reviewed by me
[2024-02-12] MEDS: SPIRIVA RESPIMAT 2.5 MCG INH (07:19)
[2024-02-12] MEDS: SYMBICORT 80/4.5 MCG INHALER INH (07:19)
[2024-02-12] MEDS: CARDIZEM CD 120 MG PO (08:14)
[2024-02-12] MEDS: LOW STRENGTH ASPIRIN 81 MG PO (08:15)
--- NOTE | 2024-02-12 08:23 | PTCARENOTE ---
Rec'd pt this shift awake and alert ambulating in room and in hallway. Pt NSR on monitor with no complaints. See worklist for VS/I and O and assessments.
[2024-02-12] MEDS: LASIX 40 MG PO (09:39)
--- NOTE | 2024-02-12 10:23 | W.PN.HOSP.TC ---
Today's Communication/Plan
-
Lasix
Discharge planning
Assessment / Plan
Assessment / Plan
CVS: S1-S2 normal
Chest: CTA B/L
Abdomen: Soft, NT / Bowel sounds present
Extremities: No edema, normal pulses
ORCHID HAND: Non focal exam
# Ventricular tachycardia during stress ECHO
-Left heart catheterization 02/12/2024-right dominant circulation with moderate calcification of the LAD and 40% lesion in the ostium of the first diagonal. Elevated filling pressures 25 mmHg.
-EP evaluation
-LifeVest planned for discharge
# LBBB-chronic
# Leukocytosis likely stress
-Resolved
# Hypertension urgency
-Blood pressure elevated in ER
-Received a dose of hydralazine in ER
-Bisoprolol, diltiazem 120 daily, Lisinopril
-Blood pressure stable
# History of COPD
-Not in acute exacerbation
-Trelegy
-Stable
-Normal alpha one antitrypsin level
# Low normal Mag- Replaced in the setting of Arrhythmias
# Hypercalcemia is NOT NEW
-Calcium was 10.11 Sep 2023
-Patient already has diagnosed hyperparathyroidism per labs- being worked up by PCP
-No H/O Kidney stones or renal failure.
-She does not take calcium supplements . Takes Vit D- Continue .
-She is not sure what her 24 hour urine showed.
-Sestamibi Scan can be considered as OP
-May benefit from Bisphosphonates/calcimimetics (Cinacalcet) if not surgical candidate .
-OP Endocrine eval.
-Calcium 10.3 today. Suspect calcium was high on admission was secondary to dehydration from being n.p.o. for stress test
-Will need repeat BMP in 1 week.
# Hyperlipidemia/Atherosclerosis
-Statin
# 6.4 cm cyst in the dome of the liver
# Diverticulosis
# DVT prophylaxis
-Lovenox
# CODE STATUS
-Full code
Discussed with nursing at bed side
D/W Cards
Offered to talk to daughter who is a physician. Pt declined. She says she updates them .
Anticipated Discharge: Today
Subjective/Interval History
-
Date of Service: February 12, 2024
Objective Data
-
Labs:
Laboratory Results
02/12/24
04:34
WBC 8.8
Hgb 12.1
Hct 36.6 L
Plt Count 210
Sodium 137
Potassium 4.3
Chloride 110 H
Carbon Dioxide 25
BUN 24 H
Creatinine 0.6
Glucose 94
Calcium 10.3 H
Vital Signs:
Vital Signs
Temp Pulse Resp BP Pulse Ox
97.5 F 67 18 145/58 96
02/12/24 07:51 02/12/24 09:39 02/12/24 07:51 02/12/24 09:39 02/12/24 08:25
I&O
02/11/24 02/12/24 02/13/24
06:59 06:59 06:59
Intake Total 150 / 150
Balance 150 / 150
[2024-02-12 11:14] LABS: Magnesium 1.7 mg/dl (1.6-2.3)
[2024-02-12] MEDS: NSS IV (11:22)
[2024-02-12 11:23] VITALS: BP 157/49
--- NOTE | 2024-02-12 11:35 | CM ---
Addendum entered by Lovely Chu RN 02/12/24 15:14:
Patient did not qualify for a life vest. Patient is going home with Rhythm Star. The monitor is being delivered to her house in [place] on Friday, [address] [place] [address]
Original Note:
Chart reviewed. Patient is independent of ADLS, lives alone in a [address] [facility], 1 VAL, 0 DME. Referral placed to [facility] for a Life Vest. Patient is not current with VN and is refusing. Plan is for the patient to return home with a Life Vest. CM to
follow.
[2024-02-12] MEDS: ZEBETA 5 MG PO (11:39)
--- NOTE | 2024-02-12 12:20 | PN.CDI ---
Addendum entered and electronically signed by Marleni Pichardo MD 02/13/24 17:57:
Documentation is complete at this time.
Original Note:
CDI
- -
CDI:
Physician Documentation Request
Admit Date: 02/10/24 15:08
Dear Doctor Kylee,
Please review the following and provide your response in the progress notes.
Clinical Indicators:
Height: 5'4
Weight: 110 lbs
BMI: 18.9
If possible, please provide an associated diagnosis related to the abnormal BMI, such as:
Underweight
BMI is not significant
Other
Use of terms such as suspected, likely, concern for, or probable (associated with a specific diagnosis that is being evaluated, monitored, or treated as if it exists) are acceptable and can be coded in the inpatient setting, when documented at the
time of discharge.
Thank you,
Belinda López RN
CDI Specialist
Please use your independent medical judgment in providing your response.
--- NOTE | 2024-02-12 12:39 | W.PN.UPDATE ---
Update Note
Progress Note Update
Got a call from Dr. Morales. Patient does not qualify for LifeVest because she does not have sustained VTs. Plan is to give the patient rhythm star monitor which they will overnight to patient's home. Is okay with patient being discharged today.
Cardiology is figuring out which address to send this to. Patient stated that she does not receive packages at home.
Spoke to patient's daughter Ailin who is a family practice doctor in [place]. [phone].
She requested reports of stress echo and also cardiac cath. Which I printed out.
Discussed about hypercalcemia, plan of discharge with rhythm star monitor
Discharge cordination time 40 min
[2024-02-12 15:13] VITALS: BP 146/46
--- NOTE | 2024-02-12 16:28 | W.PN.UPDATE ---
Update Note
Progress Note Update
pt was not on cardizem as OP per . Dr.Degnan songhged to Bisoprolol and Lisinopril.
--- NOTE | 2024-02-12 16:29 | W.DS.TRANS ---
Addendum entered and electronically signed by Marleni Pichardo MD 02/13/24 17:56:
Dictation- [id number]
Original Note:
DC Summary - Special Needs Caregiver
-
Discharge Instructions:
Discharge Diagnosis/Procedures Ventricular Tachycardia, LBBB, COPD,
Hyperparathyroidism, hyperlipidemia,
Atherosclerosis, 6.4 cm cyst in the dome of the
liver, diverticulosis
Diet As tolerated
Activity As tolerated
Driving Restrictions As prior to admission
Blood Work Bmp 1 week
Other Services VN
Instructions:
Stand-Alone Forms:
Changes to Home Medications: Yes
Discharge Medications:
DC Medications w/original date entered in [employer]
lisinopril 10 mg tablet 10 mg PO QPM Blood Pressure 01/06/24
vitamin A-vitamin C-vit E-min tablet 1 tab PO BID Supplement 01/06/24
bisoprolol fumarate 5 mg tablet 5 mg PO DAILY@1100 Blood Pressure 02/10/24
fluticasone fur. 100 mcg-umeclid 62.5 mcg-vilant 25 mcg inhalat.powder (Trelegy Ellipta) 1 inh inhalation R DAILY Lung/Breathing Issues 02/10/24
aspirin 81 mg chewable tablet (Children's Aspirin) 81 mg PO DAILY Blood clot prevention/tx #0 tabs 02/12/24
cholecalciferol (vitamin D3) 25 mcg (1,000 unit) capsule (Vitamin D3) 25 mcg PO DAILY Supplement #30 caps 02/12/24
furosemide 40 mg tablet 40 mg PO DAILY #30 tabs 02/12/24
rosuvastatin 10 mg tablet 20 mg (2 x 10 mg) PO QPM High cholesterol #30 tabs 02/12/24
Home Medication Changes
statin changed
lasix new
Pending Results: No
--- NOTE | 2024-02-12 17:48 | PTCARENOTE ---
discharge instructions given to patient. INT d/c'd.
== END 2024-02-12 18:28 | disposition home or self-care (01) | DRG 287 ==
LOC: IVU 15:08
PROVIDERS: Internal Medicine Cardiovascular Disease; Registered Nurse; ADMITTING PHYSICIAN Hospitalist; CONSULT PHYSICIAN Internal Medicine; EMERGENCY PHYSICIAN Student in an Organized Health Care Education/Training Program; FAMILY PHYSICIAN Family Medicine
PROC: B2111ZZ Fluoroscopy of Multiple Coronary Arteries using Low Osmolar Contrast (ICD-10-PCS; 2024-02-11)
PROC: 4A023N7 Measurement of Cardiac Sampling and Pressure, Left Heart, Percutaneous Approach (ICD-10-PCS; 2024-02-11)
PROC: B2151ZZ Fluoroscopy of Left Heart using Low Osmolar Contrast (ICD-10-PCS; 2024-02-11)
DX: I47.20 Ventricular tachycardia, unspecified (principal); Z87.891 Personal history of nicotine dependence; I16.0 Hypertensive urgency; E78.5 Hyperlipidemia, unspecified; E83.52 Hypercalcemia; K76.89 Other specified diseases of liver; K57.30 Diverticulosis of large intestine without perforation or abscess without bleeding; E21.0 Primary hyperparathyroidism; I10 Essential (primary) hypertension; J44.9 Chronic obstructive pulmonary disease, unspecified
CPT/HCPCS: 78452; 80048; 80053; 80061; 83036; 83735; 84484; 85025; 85027; 85610; 85730; 86850; 86900; 86901; 93005; 93017; 93458; 94640; 96374; 99285; A9500; C1769; C1894; J2785; Q9967

== ENCOUNTER → 2024-02-19 11:36 | Outpatient (REF) | payer MEDICARE, BC, SELFPAY ==
[2024-02-19 13:08] LABS: Blood Urea Nitrogen 50 mg/dl (7-17); Calcium 11.2 mg/dl (8.4-10.2); Carbon Dioxide 28 mmol/L (22-30); Chloride 98 mmol/L (98-107); Glucose 93 mg/dl (70-99); Potassium 3.9 mmol/L (3.5-5.1); Sodium 139 mmol/L (135-145); eGFR > 60.00
== END ==
LOC: REG 11:36
PROVIDERS: ATTENDING PHYSICIAN Internal Medicine Cardiovascular Disease; FAMILY PHYSICIAN Family Medicine
DX: Z79.899 Other long term (current) drug therapy (principal)
CPT/HCPCS: 36415; 80048

== ENCOUNTER → 2024-04-20 11:38 | Outpatient (REF) | payer MEDICARE, BC, SELFPAY | LOC: RAD 11:38 | PROVIDERS: ATTENDING PHYSICIAN Surgery; FAMILY PHYSICIAN Family Medicine | DX: E21.0 Primary hyperparathyroidism (principal) | CPT/HCPCS: 77080 ==

== ENCOUNTER 2024-05-03 14:52 | Inpatient (IN) | payer MEDICARE, BC, SELFPAY ==
[2024-04-23 13:25] VITALS: BMI 21.5
[2024-05-03] VITALS (11 sets, daily range): BP systolic 89–164; BP diastolic 41–76
--- NOTE | 2024-05-03 09:24 | W.ICD.CONTRA ---
Post ICD/TACKING MACHINE OPERATOR-D
-
History of ID?: No
LV Function
Left ventricular function study result?: Ejection Fraction >/= 40%
ACEI/ARB/ARNI
Patient already on ACEI/ARB/ARNI: Yes
Beta-Sweta
Patient already on Beta Sweta: Yes
--- NOTE | 2024-05-03 14:46 | ITS.CL.ICD ---
Maintenance Mechanic Elevators - ICD
Implantable Cardioverter Defibrillator
Procedure Report:
BiV ICD
CLAIM APPROVER-D with Bi-Ventricular Implantable Cardiac Defibrillator (BiV-ICD) Placement:
Ms. Resendiz is an 79 years old woman with myocardial scarring, ventricular tachycardia, chronic left bundle branch block, with LHC showing no CAD with exercise induced VT and on event mnitoring showed second degree AV block, sick sinus syndrome,
conducton disease and ventricualr tachycardia is recommended a BiV ICD placement.
Patient is here in EP lab for cardiac resynchronization therapy with defibrillator (CLAIM APPROVER-D).
Indications: Ventricular tachycardia, second degree AV block, conduction disease and wide QRS with LBBB
Date of the Procedure: 05/03/2024
Pre-Operative Diagnosis: Ventricular tachycardia, second degree AV block, conduction disease and wide QRS with LBBB
Post-Operative Diagnosis: Ventricular tachycardia, second degree AV block, conduction disease and wide QRS with LBBB
Procedure Performed: CLAIM APPROVER-D with BIVENTRICULAR IMPLANTABLE DEFIBRILLATOR IMPLANTATION
Performing Physician:
Elisabet Villalta MD
Anesthesia:
See anesthesia records
Detailed Description of the Procedure:
The patient was identified using hospital identification and informed consent obtained for the procedure. The risks were explained to the patient and the family including, but not limited to: Bleeding, infection, arrhythmia, stroke,
vascular/cardiac/lung puncture, surgery, pacemaker dependency/device malfunction. All questions were answered.
A surgical pause was performed in accordance with hospital regulations. Anesthesia service provided sedation as reported separately. Antibiotics administered IV for risk of bacterial colonization. After obtaining informed and written consent, the
patient was brought to the electrophysiology laboratory.
A timeout was performed immediately before the procedure. The left chest was prepped from the nipple to the angle of the jaw with chlorhexidine, and draped following sterile technique in usual routine.�
Following infiltration with local anesthetic, the cephalic vein cut down was performed but the cephalic was too small for cannulation. The venogram of the left arm was done and axillary vein was accessed using the micro-puncture apparatus. The
second stick was again repeated with similar fashion. The guide wires were advanced to the inferior vena cava (IVC) under flouro guidance. The third guidewire was advanced to the SVC using retained guide wire technique with the help of hemostatic
peel away introducer sheaths.
A subcutaneous pocket was created with blunt dissection and use of electrocautery. Hemostasis was excellent.
The right ventricular lead was placed at the RV apical septum with defibrillator coil well into the RV cavity and screwed in place with appropriate sensing and threshold. The atrial lead was placed at the right atrial appendage. RA and RV leads
inserted fluoroscopically, tested and functioning appropriately with upright current of injury (lead information below). The leads were secured to the deep fascia with 2-0 Ethibond sutures placed on the anchoring sleeves.
Attention turned to the coronary sinus. The guide wire was advanced to the IVC and a long hemostatic peel away sheath was advanced to the RA.
The CS was cannulated using radiofocus glidewire.
The sheath was advanced into the CS over a Terumu glidewire. Coronary sinus venography was obtained with a balloon catheter in the CS. ~10 cc contrast used. CS anatomy revealed a posterolateral branch. The posterolateral branch was accessed using a
BMW wire.
The double canted quadripolar lead was placed in the posterolateral branch and it had excellent thresholds and great EKG morphology. During pacing, QRS complex was favorable, with a QS in lateral leads and RBBB configuration during LV pacing. It was
deemed ideal for biventricular pacing. Diaphragmatic stimulation was not present with high output pacing here. The long guiding sheath was removed from the vein and then from the body without change in lead position, impedance, sensing, or capture.�
Short DE interval permitted AdaptivCRT pacing with BiV / LV only pacing. The lead was sutured to the underlying pectoralis fascia with 0-silk stitches. Some oozing was seen at access sites. This was managed with manual pressure and a loose
pursestring suture.�
The leads were attached to the pulse generator in standard configuration with acceptable sensing and threshold parameters. The pocket was irrigated with antibiotic solution; the pocket was inspected with no active bleeding noted. The device and the
leads were placed in the pocket.
The device was anchored to the underlying fascia using 2-0 Ethibond suture.
Deep subcutaneous tissues were closed with 2-0 VLoc sutures; intermediate subcutaneous tissue was reopposed using a running 2-0 V lock suture, and the dermis was reopposed using a running 4-0 V lock subcuticular suture. Sponge counts / sharp counts
were appropriate.
Procedure End:
The procedure was tolerated well. Aquacel bandaged was applied. A pressure dressing was applied.
Estimated Blood loss:
10 cc
Specimens Removed:
No cultures and no specimens were obtained. No intraoperative pathology was identified.
Urine output:
None
Packs / Drains/ Tubes:
None
Instrument / Sponge Count Correct:
Yes
Flouro time:
6.1min / 12.2mGy
Complications of the Procedure:
None
Condition of Patient at Time of Transfer:
Hemodynamically stable with no neurological or vascular compromise.
Device information:�
Generator: ConXtech; Model: [id number]; Serial # [id number]�
����������� Atrial Lead: Oneexchangestreettronic; Model: 4574-45; Serial # [id number]
����������������������� Measured data in the right atrium was sensing of 2.6 mV and, impedance of 627ohms and threshold of 0.5 V at 0.4ms�
����������� RV Lead: Medtronic; Model: 6935M-55; Serial # [id number]
����������������������� Measured data on the RV lead was sensing of 9.6 mV, impedance of 456 ohms and threshold of 0.5 V at 0.4ms�
����������� LV pacing lead: Medtronic; Model: 4298-88; Serial # [id number]
����������������������� Measured data on the LV lead was impedance of 817 ohms and threshold of 0.7 V at 0.4ms (LV4 to RV coil; diaphragm not seen at max output).
PROGRAMMING PARAMETERS:�
Ramiro parameter settings were DDDR 50-130 �
����������� Paced AV interval: Adaptive
����������� Sensed AV interval: Adaptive
����������� Rate Adaptive A-V Interval: on
Tachy parameter settings:
����������� SVT discrimination: On
����������� AF/AFl: On
����������� SVT limit: 260 msec
����������� VT zone:
Slow VT: 150-167 bpm - Monitor
����������������������� Fast VT: 167-188 bpm: ATP then shock
����������������������� VF: >188 bpm� Shock x6 (ATP while charging)
�
Summary:
Successful implantation of CLAIM APPROVER-D
Results/Recommendations:
-Please follow up CXR�
1. Please discharge patient with adequate pain control�
Instructions to be given to patient:�
- Please follow up with [facility] at [address] [place] [address] ([phone]) to get your wound checked in 2 weeks of your discharge.
- Do not wet incision site until after it is evaluated at cardiology clinic. No baths or showers until then. Sponge baths / showers are OK but dab dry the dressing after it is wet.�
- Allow 'steri strips' to fall off on their own�
- Do not lift left elbow above shoulder, particularly with sudden jerking movements, for 1 month�
- Do not lift anything weighing more than 5 pounds with the left arm for 1 month�
- If you notice any fevers, shortness of breath, lightheadedness, chest pain, or worsening swelling in the wound site, please contact the arrhythmia clinic, contact your comber fixer, or present to the hospital for evaluation.�
Elisabet Villalta MD
Electrophysiology
--- NOTE | 2024-05-03 15:16 | PTCARENOTE ---
Received pt from cytogenetics laboratory manager. Left arm immobilizer intact, dressing CDI. AOx3, no complaints of pain or discomfort. Educated pt and daughters on restrictions and expected OOB time. Call love within reach.
--- NOTE | 2024-05-03 17:27 | PTCARENOTE ---
Per Jeanette Max NP, place pt on 4L O2 for CXR results. Pt also on bedrest until further notice. Pt and daughters updated. Dr Villalta will update pt and family at bedside. SpO2 97% on 4L O2. Will continue to monitor.
[2024-05-03] MEDS: ANCEF 5 IV (20:56)
[2024-05-04 04:52] VITALS: BP 127/55
[2024-05-04] MEDS: TYLENOL 650 MG PO (04:52)
[2024-05-04] MEDS: ANCEF 5 IV (04:53)
[2024-05-04 05:36] LABS: Hematocrit 36.5 % (37.0-47.0); Hemoglobin 11.9 g/dL (12.0-16.0); Mean Corp Hgb Conc. 32.6 g/dL (33.0-37.0); Mean Corpuscular Hgb 31.8 pg (27.0-31.0); Mean Corpuscular Volume 97.6 fL (81.0-99.0); Platelet Count 180 10^3/uL (130-400); Red Blood Cell Count 3.74 10^6/uL (4.20-5.40); Red Cell Dist. Width 12.6 % (11.5-14.5); White Blood Cell Count 12.5 10^3/uL (4.8-10.8)
[2024-05-04 05:48] LABS: Blood Urea Nitrogen 30 mg/dl (7-17); Calcium 10.5 mg/dl (8.4-10.2); Carbon Dioxide 24 mmol/L (22-30); Chloride 109 mmol/L (98-107); Estimated Creatinine Clearance 53 ml/min; Glucose 121 mg/dl (70-99); Potassium 4.7 mmol/L (3.5-5.1); Sodium 137 mmol/L (135-145); eGFR > 60.00
--- NOTE | 2024-05-04 07:18 | W.PN.CD ---
Today's Communication / Plan
-
- Wean off Oxygen.
- Repeat CXR
Impression / Plan
-
78 y/o female with coronary artery calcification, HTN, former smoker, COPD and LBBB admitted with VT after stress test.
#Ventricular tachycardia
-s/p BiVentricular ICD placement _ Medtronic 05/03/24
-went into salvos of VT with catheters in the heart,
-CS lead placement into the MCV resulted in sustained VT resulting removal of MCV wire. APL br was accessed for MANUFACTURING QUALITY TECHNICIAN.
-Pt had jerky movements through out the case on the table
-PTX noted post op- Clinically insignificant. no need for Chest tube. Wean off Oxygen.
-Repeat CXR is stable.
-Repeat CXR again today
-SHELDON (01/06/2024) shows LVEF 55-60%.
-Cardiac catheterization shows no occlusive CAD. LVEDP at the time of cath is severely elevated at 25 mmHg.
-Explained in detail to the patient and family. CXR last night was again explained to the patient last night
Hypertension
-Chronic
-Continue bisoprolol, diltiazem. ACEI on hold
-Hydralazine 5 mg IV PRN SBP > 180.
#Coronary artery calcification on CT
-Chronic, stable.
-Increased rosuvastatin to 20 mg.
#COPD
-Stable, not in exacerbation.
-Continue Trelegy.
-Follow up with pulmonary in the outpatient setting.
#Aortic regurgitation, moderate, eccentric.
#Mildly dilated ascending aorta, 4.1 cm by SHELDON.
#LBBB, present as a new patient for office visit, likely chronic.
#Hypercalcemia, with elevated PTH
#Former smoker, continue cessation recommended
Subjective/Interval History:
s/p BiV ICD 05/03- PTX post op. Maintaining oxygen. Kept on 2 L NC
DATA:
Cardiac Catheterization, 02/11/2024:
CONCLUSIONS
1. Right dominant circulation with moderate, external calcification of the LAD and a 40% lesion in the ostium of the first diagonal.
2. Severely elevated filling pressures (LVEDP = 25 mmHg at 50.3 kg).
3. Severe subclavian, brachial and radial artery tortuosity with multiple vessel loops, requiring transition to 4 Setswana catheters and an Amplatz extra-stiff wire for catheter exchanges.
4. No obvious ischemic source of ventricular tachycardia.
TTE, 10/16/2023:
CONCLUSIONS
Left ventricle is moderately dilated with severe concentric hypertrophy and
normal left ventricular systolic function. Left ventricular ejection fraction
is 76%, by Lemus' s method. Normal diastolic function.
Physical Exam
Vital Signs/Labs
Vital Signs
Temp Pulse Resp BP Pulse Ox
98.2 F 68 16 127/55 95
05/04/24 05:20 05/04/24 05:15 05/04/24 05:20 05/04/24 04:52 05/04/24 05:20
05/04/24 05:04
05/04/24 05:04
Physical Exam
Constitutional: No acute distress and Comfortable
EENT: Anicteric and Moist mucous membranes
Cardiovascular: Rhythm & rate is regular, Pedal edema is absent and JVD pressure is normal
Respiratory: Respiratory effort normal, Lungs clear to auscul. and Wheeze Absent
GI: Soft, Non tender and Normal bowel sounds
Neuro/Psych: Alert, Oriented, AO x 3 and Motor deficits absent
Data Reviewed
-
Date of Service: May 04, 2024
Medical Decision Making: Tests Ordered, Independent Historian Assessment and Test Interpretation
EKG: Tracing Personally Visualized and interpreted
Echo: Report Reviewed by me
Labs: Labs Reviewed by me
Old Records: Reviewed
Critical Care Time (in minutes): 35
[2024-05-04 08:16] VITALS: BP 129/41
--- NOTE | 2024-05-04 09:01 | PTCARENOTE ---
Received patient this morning resting in bed. Seen by Dr. Villalta, drainage on aquacel unchanged since marked by night custodian. Told the patient I would be in shortly to given her morning meds and she stated 'I already took them'. Questioned her why
she took her own meds and she told me no one had told her not too. Instructed her that in the future while hospitalized she should not take her own meds. Reviewed how to order breakfast but stated her daughter would bring her meal, that she didn't
like the restricted diet. Patient sent for her chest x-ray, she is anxious to go home. Pulse ox on RA 92%, denies any shortness of breath or chest discomfort.
--- NOTE | 2024-05-04 09:53 | W.DS.TRANS ---
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
-
Discharge Instructions:
Discharge Diagnosis/Procedures Bi-V ICD implant
Diet Low Cholesterol
Driving Restrictions No driving for 1 week
Bathing Restrictions OK to Shower
Others Tests Chest XRay in 1 week- please do it on Thursday 05/10
in AM, prior to incision check appt.
Instructions:
Stand-Alone Forms: DC Inst - Implanted Device
Changes to Home Medications: No
Discharge Medications:
DC Medications w/original date entered in [employer]
lisinopril 10 mg tablet 10 mg PO DAILY Blood Pressure 01/06/24
bisoprolol fumarate 5 mg tablet 5 mg PO DAILY Blood Pressure 02/10/24
fluticasone fur. 100 mcg-umeclid 62.5 mcg-vilant 25 mcg inhalat.powder (Trelegy Ellipta) 1 inh inhalation DAILY Lung/Breathing Issues 02/10/24
aspirin 81 mg chewable tablet (Children's Aspirin) 81 mg PO DAILY Blood clot prevention/tx #0 tabs 02/12/24
cholecalciferol (vitamin D3) 25 mcg (1,000 unit) capsule (Vitamin D3) 25 mcg PO DAILY Supplement #30 caps 02/12/24
atorvastatin 10 mg tablet 10 mg PO DAILY High Cholesterol 04/21/24
vit C 250 mg-vit E 90 mg-zinc 40 mg-copper 1 [id number] capsule (PreserVision AREDS-2) 1 tab PO BID Supplement 04/21/24
furosemide 20 mg tablet 20 mg PO DAILY Fluid Retention/Swelling 05/03/24
Home Medication Changes
Pending Results: No
--- NOTE | 2024-05-04 09:53 | W.PN.UPDATE ---
Update Note
Progress Note Update
Repeat cxr with stable pneumothorax, no sig changes compared with prior CXR 05/03.
Pt is asymptomatic, denies dyspnea/SOB/hypoxia. O2 sat 92% on room air.
Instructed to return to ER for any progressive dyspnea/sob.
Activity limtations post device reviewed with pt.
Repeat CXR next Friday prior to incision check at [facility].
--- NOTE | 2024-05-04 11:18 | PTCARENOTE ---
Reviewed discharge instructions with the patient and her daughters and they state their understanding. Emphasized importance of maintaining activity restrictions and demonstrated application of immobilizer which she will wear to bed for the next
month. Aware of follow up cxr prior to her cardiology appointment and to go to the ED with any respiratory difficulties. Patient discharged home with her daughter.
--- NOTE | 2024-05-04 11:40 | CM ---
spoke with pt in room, she is prev indep, lives alone in a 2 story home with 1 step to enter. she denies any dme's or dc planning needs. plan is for dc to home today.
== END 2024-05-04 11:20 | disposition home or self-care (01) | DRG 277 ==
LOC: IVU 14:52
PROVIDERS: Nurse Practitioner; ADMITTING PHYSICIAN Internal Medicine Cardiovascular Disease; FAMILY PHYSICIAN Family Medicine
PROC: 02HL3KZ Insertion of Defibrillator Lead into Left Ventricle, Percutaneous Approach (ICD-10-PCS; 2024-05-03)
PROC: 0JH609Z Insertion of Cardiac Resynchronization Defibrillator Pulse Generator into Chest Subcutaneous Tissue and Fascia, Open Approach (ICD-10-PCS; 2024-05-03)
PROC: 02H63KZ Insertion of Defibrillator Lead into Right Atrium, Percutaneous Approach (ICD-10-PCS; 2024-05-03)
PROC: 02HK3KZ Insertion of Defibrillator Lead into Right Ventricle, Percutaneous Approach (ICD-10-PCS; 2024-05-03)
DX: I47.20 Ventricular tachycardia, unspecified (principal); J95.811 Postprocedural pneumothorax; I44.1 Atrioventricular block, second degree; I44.7 Left bundle-branch block, unspecified; I25.10 Atherosclerotic heart disease of native coronary artery without angina pectoris; I10 Essential (primary) hypertension; E78.5 Hyperlipidemia, unspecified; I35.1 Nonrheumatic aortic (valve) insufficiency; I49.5 Sick sinus syndrome; J44.9 Chronic obstructive pulmonary disease, unspecified; I77.810 Thoracic aortic ectasia; E83.52 Hypercalcemia; Z87.891 Personal history of nicotine dependence; M81.0 Age-related osteoporosis without current pathological fracture; J43.9 Emphysema, unspecified; I25.2 Old myocardial infarction; Z79.82 Long term (current) use of aspirin; Z79.51 Long term (current) use of inhaled steroids; Z79.899 Other long term (current) drug therapy
CPT/HCPCS: 33225; 33249; 71045; 71046; 80048; 85027; 93005; C1769; C1777; C1882; C1887; C1892; C1898; C1900; Q9967

== ENCOUNTER → 2024-05-10 09:28 | Outpatient (REF) | payer MEDICARE, BC, SELFPAY | LOC: RAD 09:28 | PROVIDERS: ATTENDING PHYSICIAN Internal Medicine Cardiovascular Disease; FAMILY PHYSICIAN Family Medicine | DX: J93.9 Pneumothorax, unspecified (principal) | CPT/HCPCS: 71046 ==

== ENCOUNTER → 2024-11-09 10:55 | Outpatient (REF) | payer MEDICARE, BC, SELFPAY ==
[2024-11-09 13:34] LABS: Vitamin D, 25-OH*** 52.4 ng/mL (30-80)
[2024-11-09 13:47] LABS: 24 Hour Urine Total Volume 1000 ml
[2024-11-09 14:02] LABS: Urine Calcium 6.9 mg/dl
[2024-11-09 14:03] LABS: 24 Hour Urine Creatinine 0.759 gm/day (0.8-1.8)
== END ==
LOC: RAD 10:55
PROVIDERS: ATTENDING PHYSICIAN Internal Medicine Endocrinology, Diabetes & Metabolism; FAMILY PHYSICIAN Family Medicine
DX: E21.0 Primary hyperparathyroidism (principal)
CPT/HCPCS: 36415; 76536; 81050; 82306; 82340; 82570

== ENCOUNTER → 2024-12-02 08:43 | Outpatient (REF) | payer MEDICARE, BC, SELFPAY | LOC: RAD 08:43 | PROVIDERS: ATTENDING PHYSICIAN Internal Medicine Endocrinology, Diabetes & Metabolism; FAMILY PHYSICIAN Family Medicine; REFERRING PHYSICIAN Surgery | DX: E55.9 Vitamin D deficiency, unspecified (principal); E21.0 Primary hyperparathyroidism | CPT/HCPCS: 78071; A9500 ==

== ENCOUNTER → 2025-04-27 08:57 | Outpatient (REF) | payer MEDICARE, BC, SELFPAY ==
[2025-04-27 09:52] LABS: Hematocrit 40.0 % (37.0-47.0); Hemoglobin 12.8 g/dL (12.0-16.0); Mean Corp Hgb Conc. 32.0 g/dL (33.0-37.0); Mean Corpuscular Volume 96.6 fL (81.0-99.0); Nucleated Red Blood Cells % 0 %; Platelet Count 206 10^3/uL (130-400); Red Cell Dist. Width 12.8 % (11.5-14.5)
[2025-04-27 11:42] LABS: ALT (SGPT) 12 U/L (0-35); AST (SGOT) 20 U/L (14-36); Albumin 4.4 g/dl (3.5-5.0); Alkaline Phosphatase 68 U/L (38-126); Blood Urea Nitrogen 35 mg/dl (7-17); Calcium 11.2 mg/dl (8.4-10.2); Carbon Dioxide 29 mmol/L (22-30); Chloride 103 mmol/L (98-107); Glucose 101 mg/dl (70-99); HDL Cholesterol 81 mg/dl; LDL Cholesterol, Calculated 70 mg/dl; Potassium 4.3 mmol/L (3.5-5.1); Sodium 138 mmol/L (135-145); Total Protein 7.3 g/dl (6.3-8.2); Very Low Density Lipoprotein 20 mg/dl (0-30); eGFR 56.60
[2025-04-27 12:09] LABS: Vitamin D, 25-OH*** 85.2 ng/mL (30-80)
== END ==
LOC: REG 08:57
PROVIDERS: ATTENDING PHYSICIAN Family Medicine; REFERRING PHYSICIAN Internal Medicine Endocrinology, Diabetes & Metabolism
DX: M81.0 Age-related osteoporosis without current pathological fracture (principal); I25.84 Coronary atherosclerosis due to calcified coronary lesion; E21.0 Primary hyperparathyroidism
CPT/HCPCS: 36415; 80053; 80061; 82306; 85025

== ENCOUNTER → 2025-04-29 11:54 | Outpatient (REF) | payer MEDICARE, BC, SELFPAY ==
[2025-04-29 12:54] LABS: Hematocrit 38.3 % (37.0-47.0); Hemoglobin 12.3 g/dL (12.0-16.0); Mean Corp Hgb Conc. 32.1 g/dL (33.0-37.0); Mean Corpuscular Volume 95.5 fL (81.0-99.0); Nucleated Red Blood Cells % 0 %; Platelet Count 228 10^3/uL (130-400); Red Cell Dist. Width 12.5 % (11.5-14.5)
[2025-04-29 13:34] LABS: C-Reactive Protein 49.20 mg/L (0.0-10.00)
[2025-04-29 13:56] LABS: Urine Character Clear (Clear)
[2025-04-29 14:04] LABS: Urine Red Blood Cell 0-2 /HPF (0-2)
[2025-04-29 14:07] LABS: Calcium 10.8 mg/dl (8.4-10.2); LDH 235 U/L (120-246)
== END ==
LOC: REG 11:54
PROVIDERS: ATTENDING PHYSICIAN Family Medicine
DX: E21.0 Primary hyperparathyroidism (principal); E83.52 Hypercalcemia; D72.829 Elevated white blood cell count, unspecified; I16.0 Hypertensive urgency
CPT/HCPCS: 71046; 81003; 81015; 82330; 83519; 83615; 83970; 84443; 85025; 85652; 86140; 87040; 87077; 87086; 87186

== ENCOUNTER 2025-05-19 18:29 | Inpatient (IN) | payer MEDICARE, BC, SELFPAY ==
[2025-05-19] VITALS (33 sets, daily range): BP systolic 75–112; BP diastolic 34–54; BMI 22.7; BMI 23.1
[2025-05-19 13:11] LABS: Hematocrit 35.0 % (37.0-47.0); Hemoglobin 11.3 g/dL (12.0-16.0); Mean Corp Hgb Conc. 32.3 g/dL (33.0-37.0); Mean Corpuscular Volume 93.3 fL (81.0-99.0); Nucleated Red Blood Cells % 0 %; Platelet Count 266 10^3/uL (130-400); Red Cell Dist. Width 12.7 % (11.5-14.5)
[2025-05-19 13:42] LABS: ALT (SGPT) 50 U/L (0-35); AST (SGOT) 80 U/L (14-36); Albumin 3.7 g/dl (3.5-5.0); Alkaline Phosphatase 87 U/L (38-126); Blood Urea Nitrogen 80 mg/dl (7-17); Calcium 9.1 mg/dl (8.4-10.2); Carbon Dioxide 22 mmol/L (22-30); Chloride 99 mmol/L (98-107); Glucose 101 mg/dl (70-99); Lipase 247 U/L (23-300); Potassium 4.2 mmol/L (3.5-5.1); Sodium 133 mmol/L (135-145); Total Protein 6.6 g/dl (6.3-8.2); eGFR 18.85
--- NOTE | 2025-05-19 14:14 | ED.GENMED ---
History of Present Illness
<Chloe Benavides PA-C - Last Filed: 05/19/25 18:06>
General
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
Source: patient and family (Patient's daughter at bedside)
Exam Limitations: none
Time Seen by Provider: 05/19/25 13:55
Nursing documentation reviewed up to this point in time: agreed with
History of Present Illness
History of Present Illness:
Patient is an 80-year-old female with history hypertension, COPD who presents to the emergency department with progressively worsening weakness, lack of appetite, and vague abdominal discomfort. Patient states she was treated for a UTI about 3
weeks ago with a course of Keflex. At that time she was asymptomatic however evidence of UTI was found during a routine physical. Patient states that over the past few days - weeks she has been struggle with increasing fatigue, generalized
weakness, and vague upper abdominal discomfort. She has very little appetite and has not been eating/drinking much.
She also reports chronic cough with worsening shortness of breath. She denies any vomiting, chest pain. No dysuria or hematuria. No flank/back pain.
Past History
<Chloe Benavides PA-C - Last Filed: 05/19/25 18:06>
Past History
ED Past Medical History: COPD and HTN
Social History
Tobacco: Former smoker
Alcohol: None
Review of Systems
<Chloe Benavides PA-C - Last Filed: 05/19/25 18:06>
Review of Systems
Allergies reviewed?: Yes
All Other Systems: ROS reviewed and negative except as documented in HPI and ROS
Phy Exam
<Chloe Benavides PA-C - Last Filed: 05/19/25 18:06>
Physical Exam
Physical Exam:
Vitals: Hypotensive, otherwise vital signs stable.
General: Patient is weak appearing.
Skin: Warm and dry, no rashes or lesions
Head: Normocephalic, atraumatic
Eyes: Sclera nonicteric. EOMs intact. No nystagmus.
Throat: Dry mucous membranes. Protecting airway
Neck: Normal ROM, no cervical spine tenderness, no meningismus
Cardiac: Regular rate and rhythm, no murmurs.
Pulm: Normal respiratory effort. Scattered rhonchi.
Abdomen: Abdomen soft and nontender. No CVA tenderness.
Extremities: No evidence of cyanosis or edema.
Neuro: AAOx3. Grossly intact.
Psychiatric: Normal affect.
Sepsis
<Chloe Benavides PA-C - Last Filed: 05/19/25 18:06>
Sepsis Screening
Sepsis Assessment: Septic Shock
Sepsis Screening: Lactate >2mmol/L, Hypotension and ARF-Creatinine >2.0
Sepsis Screen
Sepsis Screen: Septic Shock
Date: 05/19/25
Time: 16:45
Course
<Chloe Benavides PA-C - Last Filed: 05/19/25 18:06>
Orders/Labs/Results
Orders:
Orders
05/19/25
Lactic Acid Urgent
05/19/25 Lunch
NPO
Allow oral meds: No
Allow clear liquids: No
05/19/25 12:59
Complete Blood Count/With Diff Urgent
Comprehensive Metabolic Panel Urgent
Lipase Urgent
05/19/25 13:00
Lactic Acid Urgent
05/19/25 14:08
Abdomen/Pelvis wo Contrast CT [CT Abd/pelvis Wo Iv Cont] Urgent
Comment:
Reason For Exam: abdominal pain,
0.9% Sodium Chloride 1000 ml [Nss] 1,000 ml IV BOLUS
Piperacillin/Tazo 3.375 Gram [Zosyn] 3.375 gram in 50 ml IV NOW
CR Chest - 2 Views Urgent
Comment:
Reason For Exam: SOB,cough
05/19/25 14:51
0.9% Sodium Chloride 1000 ml [Nss] 1,000 ml IV BOLUS
05/19/25 14:56
COVID-19 Antigen Urgent
Source: Nasal Swab
Urinalysis Urgent
Date Specimen was Collected: 05/19/25
Time Specimen was Collected: 12:44
Urine Microscopic Urgent
Date Specimen was Collected: 05/19/25
Time Specimen was Collected: 12:44
Blood Culture Q30M
NAUN Source: Blood/Venous
Specimen Description:
05/19/25 14:57
Blood Culture Q30M
NAUN Source: Blood/Venous
Specimen Description:
05/19/25 15:37
Vancomycin [Vancocin] 1,500 mg 0.9% Sodium Chloride 500 ml [Nss] 500 ml IV NOW
05/19/25 17:05
Surgical Procedure As Directed
Surgical Procedure: left ureteral stenting
05/19/25 17:16
NORepinephrine 4 MG/250 ML [Levophed] 4 mg in 250 ml .ROUTE .STK-MED
05/19/25 17:22
Dexamethasone Sod Phosphate [Decadron] 20 mg .ROUTE .STK-MED ONE
Fentanyl Citrate/Pf [Sublimaze] 100 mcg .ROUTE .STK-MED ONE
Lidocaine HCl/Pf [Xylocaine-Mpf 1% Vial] 50 mg .ROUTE .STK-MED ONE
Ondansetron Injectable [Zofran] 4 mg .ROUTE .STK-MED ONE
Propofol [Diprivan] 20 ml .ROUTE .STK-MED
Rocuronium [place] [Rocuronium] 50 mg .ROUTE .STK-MED ONE
05/19/25 17:26
Admit/Transfer Patient As Directed
Co-Sign Provider:
Level of Care: Inpatient admission
Assign to:: ICU
Physician / Group: whitneyy
Diagnosis: Septic shock 2/2 infected obstructing Lt ureteric stone, MELISSA
Reason for Hospitalization: Septic shock 2/2 infected obstructing Lt ureteric stone, MELISSA
Expected length of stay greater than two midnights?: Yes
ELOS- Estimated Length of Stay in days: 4
I certify the patient meets the requirements for IP care: Yes
05/19/25 17:28
Code Status As Directed
Resuscitation Status: Full Code
05/19/25 17:36
Iohexol [Omnipaque] 50 ml .ROUTE .STK-MED ONE
05/19/25 17:38
Fentanyl Citrate/Pf [Sublimaze] 25 mcg IV [id number] PRN
HYDROmorphone [Dilaudid] 0.25 mg IV [id number] PRN
Morphine Sulfate 1 mg IV [id number] PRN
Ondansetron Injectable [Zofran] 4 mg IV PACU-ONCEPRN PRN
Prochlorperazine [Compazine] 5 mg IV PACU-ONCEPRN PRN
05/19/25 17:39
Notify MD As Directed
Notify physician if: for SDS patients with known or suspected sleep obstructive sleep apnea, monitor in the
PACU.
Notify MD for any apneic/desaturation episodes
O2 Therapy [RESP] Urgent
Titrate/Wean O2 to maintain O2 sat greater than (%): 92
Special Instructions: -Provide supplemental oxygen to achieve O2 sat of 92% or greater.
-After 15 min, may wean O2 and discontinue if patient is able to maintain O2 sat of 92%
or greater during recovery period.
If patient is a discharge home, without oxygen therapy, notify anestheiologist if
unable to maintain O2 SAT of 92% or greater on room air for MD clearance.
Abnormal Lab Results
05/19/25 05/19/25 05/19/25
12:59 13:00 14:56
WBC 18.5 H 10^3/uL
(4.8-10.8)
RBC 3.75 L 10^6/uL
(4.20-5.40)
Hgb 11.3 L g/dL
(12.0-16.0)
Hct 35.0 L %
(37.0-47.0)
MCHC 32.3 L g/dL
(33.0-37.0)
MPV 10.9 H fL
(7.4-10.4)
Abs Immat Gran (auto) 0.1 H 10^3/uL
(0-0.05)
Absolute Neuts (auto) 16.1 H 10^3/uL
(1.4-6.5)
Absolute Lymphs (auto) 0.8 L 10^3/uL
(1.2-3.4)
Absolute Monos (auto) 1.5 H 10^3/uL
(0.1-0.6)
Neutrophils % 86.9 H %
(42.2-75.2)
Lymphocytes % 4.2 L %
(20.5-51.1)
Sodium 133 L mmol/L
(135-145)
BUN 80 H mg/dl
(7-17)
Creatinine 2.5 H mg/dL
(0.6-1.0)
Glucose 101 H mg/dl
(70-99)
Lactic Acid 3.1 H mmol/L
(0.7-2.0)
AST 80 H U/L
(14-36)
ALT 50 H U/L
(0-35)
Urine Occult Blood 4+ A
(Negative)
Ur Leukocyte Esterase 3+ A
(Negative)
Urine RBC 3-6 A /HPF
(0-2)
Urine WBC 30-40 A /HPF
(0-5)
Urine Bacteria Many A
(Negative)
Urine Albumin 2+ A
(Neg - Trace)
05/19/25 12:59
05/19/25 12:59
Vital Signs
Initial and Last Documented VS:
Initial Vital Signs
Temp Pulse Resp BP Pulse Ox
97.9 F 81 18 99/53 98
05/19/25 12:38 05/19/25 12:38 05/19/25 12:38 05/19/25 12:38 05/19/25 12:38
Last Documented Vital Signs
Temp Pulse Resp BP Pulse Ox
98.1 F 70 28 111/50 96
05/19/25 15:41 05/19/25 17:27 05/19/25 17:27 05/19/25 17:27 05/19/25 17:00
<Dae Acevedo, DO - Last Filed: 05/19/25 14:39>
Orders/Labs/Results
Orders:
Orders
05/19/25
Lactic Acid Urgent
05/19/25 Lunch
NPO
Allow oral meds: No
Allow clear liquids: No
05/19/25 12:59
Complete Blood Count/With Diff Urgent
Comprehensive Metabolic Panel Urgent
Lipase Urgent
05/19/25 13:00
Lactic Acid Urgent
05/19/25 14:08
Abdomen/Pelvis wo Contrast CT [CT Abd/pelvis Wo Iv Cont] Urgent
Comment:
Reason For Exam: abdominal pain,
0.9% Sodium Chloride 1000 ml [Nss] 1,000 ml IV BOLUS
Piperacillin/Tazo 3.375 Gram [Zosyn] 3.375 gram in 50 ml IV NOW
CR Chest - 2 Views Urgent
Comment:
Reason For Exam: SOB,cough
05/19/25 14:51
0.9% Sodium Chloride 1000 ml [Nss] 1,000 ml IV BOLUS
05/19/25 14:56
COVID-19 Antigen Urgent
Source: Nasal Swab
Urinalysis Urgent
Date Specimen was Collected: 05/19/25
Time Specimen was Collected: 12:44
Urine Microscopic Urgent
Date Specimen was Collected: 05/19/25
Time Specimen was Collected: 12:44
Blood Culture Q30M
NAUN Source: Blood/Venous
Specimen Description:
05/19/25 14:57
Blood Culture Q30M
NAUN Source: Blood/Venous
Specimen Description:
05/19/25 15:37
Vancomycin [Vancocin] 1,500 mg 0.9% Sodium Chloride 500 ml [Nss] 500 ml IV NOW
05/19/25 17:05
Surgical Procedure As Directed
Surgical Procedure: left ureteral stenting
05/19/25 17:16
NORepinephrine 4 MG/250 ML [Levophed] 4 mg in 250 ml .ROUTE .STK-MED
05/19/25 17:22
Dexamethasone Sod Phosphate [Decadron] 20 mg .ROUTE .STK-MED ONE
Fentanyl Citrate/Pf [Sublimaze] 100 mcg .ROUTE .STK-MED ONE
Lidocaine HCl/Pf [Xylocaine-Mpf 1% Vial] 50 mg .ROUTE .STK-MED ONE
Ondansetron Injectable [Zofran] 4 mg .ROUTE .STK-MED ONE
Propofol [Diprivan] 20 ml .ROUTE .STK-MED
Rocuronium [place] [Rocuronium] 50 mg .ROUTE .STK-MED ONE
05/19/25 17:26
Admit/Transfer Patient As Directed
Co-Sign Provider:
Level of Care: Inpatient admission
Assign to:: ICU
Physician / Group: whitneyy
Diagnosis: Septic shock 2/2 infected obstructing Lt ureteric stone, MELISSA
Reason for Hospitalization: Septic shock 2/2 infected obstructing Lt ureteric stone, MELISSA
Expected length of stay greater than two midnights?: Yes
ELOS- Estimated Length of Stay in days: 4
I certify the patient meets the requirements for IP care: Yes
05/19/25 17:28
Code Status As Directed
Resuscitation Status: Full Code
05/19/25 17:36
Iohexol [Omnipaque] 50 ml .ROUTE .STK-MED ONE
05/19/25 17:38
Fentanyl Citrate/Pf [Sublimaze] 25 mcg IV [id number] PRN
HYDROmorphone [Dilaudid] 0.25 mg IV PACU-Q5MPRN PRN
Morphine Sulfate 1 mg IV PACU-Q5MPRN PRN
Ondansetron Injectable [Zofran] 4 mg IV PACU-ONCEPRN PRN
Prochlorperazine [Compazine] 5 mg IV PACU-ONCEPRN PRN
05/19/25 17:39
Notify MD As Directed
Notify physician if: for SDS patients with known or suspected sleep obstructive sleep apnea, monitor in the
PACU.
Notify MD for any apneic/desaturation episodes
O2 Therapy [RESP] Urgent
Titrate/Wean O2 to maintain O2 sat greater than (%): 92
Special Instructions: -Provide supplemental oxygen to achieve O2 sat of 92% or greater.
-After 15 min, may wean O2 and discontinue if patient is able to maintain O2 sat of 92%
or greater during recovery period.
If patient is a discharge home, without oxygen therapy, notify anestheiologist if
unable to maintain O2 SAT of 92% or greater on room air for MD clearance.
Abnormal Lab Results
05/19/25 05/19/25 05/19/25
12:59 13:00 14:56
WBC 18.5 H 10^3/uL
(4.8-10.8)
RBC 3.75 L 10^6/uL
(4.20-5.40)
Hgb 11.3 L g/dL
(12.0-16.0)
Hct 35.0 L %
(37.0-47.0)
MCHC 32.3 L g/dL
(33.0-37.0)
MPV 10.9 H fL
(7.4-10.4)
Abs Immat Gran (auto) 0.1 H 10^3/uL
(0-0.05)
Absolute Neuts (auto) 16.1 H 10^3/uL
(1.4-6.5)
Absolute Lymphs (auto) 0.8 L 10^3/uL
(1.2-3.4)
Absolute Monos (auto) 1.5 H 10^3/uL
(0.1-0.6)
Neutrophils % 86.9 H %
(42.2-75.2)
Lymphocytes % 4.2 L %
(20.5-51.1)
Sodium 133 L mmol/L
(135-145)
BUN 80 H mg/dl
(7-17)
Creatinine 2.5 H mg/dL
(0.6-1.0)
Glucose 101 H mg/dl
(70-99)
Lactic Acid 3.1 H mmol/L
(0.7-2.0)
AST 80 H U/L
(14-36)
ALT 50 H U/L
(0-35)
Urine Occult Blood 4+ A
(Negative)
Ur Leukocyte Esterase 3+ A
(Negative)
Urine RBC 3-6 A /HPF
(0-2)
Urine WBC 30-40 A /HPF
(0-5)
Urine Bacteria Many A
(Negative)
Urine Albumin 2+ A
(Neg - Trace)
05/19/25 12:59
05/19/25 12:59
Vital Signs
Initial and Last Documented VS:
Initial Vital Signs
Temp Pulse Resp BP Pulse Ox
97.9 F 81 18 99/53 98
05/19/25 12:38 05/19/25 12:38 05/19/25 12:38 05/19/25 12:38 05/19/25 12:38
Last Documented Vital Signs
Temp Pulse Resp BP Pulse Ox
98.1 F 70 28 111/50 96
05/19/25 15:41 05/19/25 17:27 05/19/25 17:27 05/19/25 17:27 05/19/25 17:00
<Chloe Benavides PA-C - Last Filed: 05/19/25 18:06>
MDM/Problems Addressed
Differential Diagnosis Includes:
Not limited to: Acute dehydration, sepsis, UTI, pyelonephritis, obstructing kidney stone, pneumonia, intra-abdominal infection, etc.
MDM/Problems Addressed:
80-year-old female presenting with generalized weakness, vague upper abdominal discomfort, and shortness of breath worsening for the past 2 days. Recent treatment for UTI with Keflex. No dysuria, vomiting, flank pain. No known fevers. Patient
hypertensive on arrival with otherwise stable vital signs. On exam�patient generally weak appearing. Cardio/pulmonary assessment unremarkable. Abdomen benign. No reproducible CVA tenderness.
Basic labs sent prior to my evaluation significant for leukocytosis of 18.5 as well as lactic acidosis of 3.1 with creatinine of 2.5. Patient looks very dry on exam possibly due to dehydration however given recent treatment for UTI, urosepsis would
be on differential.
ED plan: Blood cultures, chest x-ray, UA, noncontrast CT scan abdomen/pelvis. Will give sepsis bolus fluids and start empiric antibiotics with IV Zosyn/vancomycin.
Update: UA does appear infected with 30-40 WBCs, 3+ leukocyte esterase and many bacteria. Patient's BP remains soft in 90s/60s however sepsis bolus fluids are still running. Will continue to closely monitor patient and consider initiating
vasopressors if patient remains hypotensive despite 30 cc/kg fluid bolus. Imaging pending.
Update: CT scan reveals 8 mm obstructing stone in left distal ureter. Patient does meet sepsis criteria with hypotension, leukocytosis, UTI with evidence of obstructing stone. Patient BP is responding to fluid bolus. Case discussed with urology,
Dr. Cleaning and hospitalist. Urology down to evaluate patient at bedside who was transferred to the OR for intervention. BP of 111/50 upon transport to the OR. All findings discussed thoroughly with patient and her family.
Chronic conditions affecting care:
COPD
Acute Exacerbation and/or Progression of Chronic Illness:
N/A
<Chloe Benavides PA-C - Last Filed: 05/19/25 18:06>
*Radiology
Radiology exam reviewed: radiology read reviewed (8 mm obstructing stone in left distal ureter)
*Pulse Oximetry
SaO2: 98
Oxygen Mode of Delivery: Room air
Patient hypoxic: no
*EKG
Interpreted by ED Provider?: NA
*Research Study Assistant Interpretation
Rate: normal
Interpretation: normal
Heart Rate: 80
Rhythm: sinus
*Critical Care Note
Total Time (30-74mins, 75-104mins- exclusive of procedures): 30
comment:
Critical care statement: A total of 30 minutes of critical care time was provided for this patient. This includes management of unstable vital signs, evaluation of the patient at bedside, reviewing the patient's pertinent medical records, discussion
with consultants, review of old EKGs and review of pertinent medical records. This time with separate from time utilized to perform the aforementioned documented procedures
ED Attending Note
<Chloe Benavides PA-C - Last Filed: 05/19/25 18:06>
-
Portions of this chart may have been created with voice recognition software.� Occasional wrong word or��sound alike� substitutions may have occurred due to the inherent limitations of voice recognition software.
<Dae Acevedo DO - Last Filed: 05/19/25 14:39>
ED Attending Note
Patient seen and examined by attending physician: Yes
I performed the substantive portion of visit, reviewed & personally made and approve the management plan that is documented in note by myself or HEIKE.: Yes
ED Attending Note:
I have seen and evaluated the patient with a [id number] encounter. I have spoken to the advance practicer provider and involved in the medical history, the physical exam, medical decision making.
Evaluation and management service: agree unless noted differently below.
Results interpretation: agree unless noted differently below.
Focused HPI: 80-year-old female presenting with generalized weakness. Symptoms were preceded by a urinary tract infection for which she finished a course of Keflex. She does acknowledge that she has not been feeling well so she has not been eating
and drinking much
Physical exam: Appears comfortable. Has a soft and nontender abdomen. Lungs clear
Medical Decision Making: Will look for infectious cause as patient has concerning lab work to suspect sepsis. She has elevated lactic acid and white blood cell count. However, this could be answered by diffuse dehydration. Will give IV fluids and
start broad-spectrum antibiotics obtain CT abdomen/pelvis and chest x-ray
Discharge Plan
Departure
Patient Disposition: Admit
Date of Disposition: 05/19/25
Time of Disposition: 16:47
Presentation/result/management discussed w/ accepting MD/DO: Hospitalist
Discharge Problem:
Septic shock, Calculus of distal left ureter
Prescriptions:
No Action
lisinopril 10 mg Tablet
10 mg PO DAILY
bisoprolol fumarate 5 mg Tablet
5 mg PO QPM
Trelegy Ellipta 100-62.5-25 mcg Blister With Device
1 inh INHALATION R DAILY
aspirin [Children's Aspirin] 81 mg Tablet,Chewable
81 mg PO DAILY Qty: 0 0RF
cholecalciferol (vitamin D3) [Vitamin D3] 25 mcg (1,000 unit) capsule
25 mcg PO DAILY Qty: 30 0RF
PreserVision AREDS-2 250-90-40-1 mg Capsule
1 tab PO BID
furosemide 20 mg Tablet
20 mg PO DAILY
alendronate [Fosamax] 70 mg Tablet
70 mg PO FR
rosuvastatin [Crestor] 10 mg Tablet
10 mg PO DAILY
Referrals:
Quita Lopez MD [Family Provider, Family Practice]
Interventions
Interventions:
*Risk Screen - Suicide Last Done: 05/19/25 12:43
*General Assessment Last Done: 05/19/25 14:30
*Neglect/Abuse Screening Last Done: 05/19/25 12:43
*ED- Fall Risk Assessment Last Done: 05/19/25 14:30
*ED COVID-19 Vaccine History Last Done: 05/19/25 14:30
*Nursing Disposition Last Done: 05/19/25 17:37
ED-Female Genitourinary Assessment Last Done: 05/19/25 14:30
Discharge Date and Time
Discharge Date/Time: 05/19/25 17:38
Print Language: UKRAINIAN
[2025-05-19] MEDS: NSS 1000 IV ×2 (14:58→15:28)
[2025-05-19] MEDS: ZOSYN 50 IV ×2 (15:01→21:09)
[2025-05-19 15:20] LABS: Urine Character Slightly Cloudy (Clear)
[2025-05-19 15:23] LABS: COVID-19 Antigen Negative (Negative)
[2025-05-19 15:45] LABS: Urine Squamous Cell 0-2 /LPF (Few); Urine Urothelial Cell 0-2 /LPF (FEW)
[2025-05-19 15:46] LABS: Urine White Cell 30-40 /HPF (0-5)
[2025-05-19] MEDS: VANCOCIN 530 MG IV (16:00)
--- NOTE | 2025-05-19 17:14 | HPS.HSE ---
Family Physician
-
Family Physician: Quita Lopez
Chief Complaint
-
worsening weakness, lack of appetite, and vague abdominal discomfort.
History of Present Illness
HPI
78F Former smoker, HX LBBB s/p BiVentricular ICD placement( Medtronic 05/03/24) for HX VT after stress test, HX coronary artery calcification, HTN, , COPD seen at ER:
- progressively worsening weakness, lack of appetite, and vague abdominal discomfort.
- she was treated for a UTI about 3 weeks ago with a course of Keflex.
- At that time she was asymptomatic however evidence of UTI was found during a routine physical.
- over the past few days - weeks she has been struggle with increasing fatigue, generalized weakness, and vague upper abdominal discomfort.
- decreased appetite and has not been eating/drinking much.
ROS
- chronic cough with worsening shortness of breath.
- denies any vomiting, chest pain.
- No dysuria or hematuria.
- No flank/back pain.
Medical History
Past Medical History
Past Medical History: Reports Other
Additional Past Medical History:
COPD
Hypertension
Mitral regurgitation
Left bundle branch block
Cataracts
Irregular heartbeat
Past Surgical History: Reports Other
Additional Past Surgical History:
Left elbow fracture repair
Left eye cataract surgery
Social History
Tobacco: Former Smoker
Alcohol: Occasional
Drug: None
Family History
Family History: Not pertinent
Allergies / Home Medications
Allergies reflects when Allergies were last updated in [facility].
Home Medications with original date entered in [facility]
Allergy/Medication List:
Allergies
Allergy/AdvReac Type Severity Reaction Status Date / Time
No Known Allergies Allergy Verified 02/10/24 12:30
Home Medications
diltiazem HCl 120 mg capsule,24 hr,extended release 120 mg PO DAILY 01/06/24
lisinopril 10 mg tablet 10 mg PO QPM 01/06/24
rosuvastatin 10 mg tablet 10 mg PO QPM 01/06/24
vitamin A-vitamin C-vit E-min tablet 1 tab PO BID 01/06/24
bisoprolol fumarate 5 mg tablet 5 mg PO DAILY@1100 02/10/24
fluticasone fur. 100 mcg-umeclid 62.5 mcg-vilant 25 mcg inhalat.powder (Trelegy Ellipta) 1 inh inhalation R DAILY 02/10/24
Review of Systems
-
Constitutional: Reports See HPI
EENT: Reports No Symptoms
Respiratory: Reports No Symptoms
Cardiac: Reports No Symptoms
Abdomen/GI: Reports Abdominal Pain (vague ) and Anorexia (mild )
: Reports No Symptoms
Musculoskeletal: Reports No Symptoms
Skin: Reports No Symptoms
Neurological: Reports No Symptoms
Endocrine: Reports No Symptoms
Hematologic/Lymphatic: Reports No Symptoms
Psych: Reports No Symptoms
Physical Exam
Vital Signs
Vital Signs
Temp Pulse Resp BP Pulse Ox
98.1 F 72 28 107/44 96
05/19/25 15:41 05/19/25 17:00 05/19/25 17:00 05/19/25 17:00 05/19/25 17:00
Physical Exam
General: Well Developed, Well Nourished and No Apparent Distress
HEENT: NormoCephalic, Moist mucous membranes and Atraumatic
Respiratory: Clear
Cardiac: S1/S2 and Regular Rhythm; No Murmur or Rub
GI: Soft, Non Tender, Non Distended and Normal Bowel Sounds; No Organomegaly
Rectal: Deferred by Provider
Musculoskeletal: No Clubbing, No Cyanosis and No Edema
Skin: No Rash
Neuro: AO x 3 and Nonfocal/grossly intact
Psych: Calm and Intact Judgment/Insight
Laboratory Results
-
05/19/25 12:59
05/19/25 12:59
Laboratory Results
Lactic Acid 1.9 mmol/L (0.7-2.0) 05/19/25 Unknown
Total Bilirubin 0.5 mg/dl (0.2-1.3) 05/19/25 12:59
AST 80 U/L (14-36) H 05/19/25 12:59
ALT 50 U/L (0-35) H 05/19/25 12:59
Alkaline Phosphatase 87 U/L (38-126) 05/19/25 12:59
Lipase 247 U/L (23-300) 05/19/25 12:59
Data Reviewed
-
CT Scan: Report Reviewed by me
Lab Data: Labs Reviewed by me
Old Records: Reviewed
Impression/Plan
-
Vital Signs
Temp Pulse Resp BP Pulse Ox
98.1 F 70 27 112/51 96
05/19/25 15:41 05/19/25 17:15 05/19/25 17:15 05/19/25 17:15 05/19/25 17:00
Abnormal Lab Results
05/19/25 05/19/25 05/19/25
12:59 13:00 14:56
WBC 18.5 H
RBC 3.75 L
Hgb 11.3 L
Hct 35.0 L
MCHC 32.3 L
MPV 10.9 H
Abs Immat Gran (auto) 0.1 H
Absolute Neuts (auto) 16.1 H
Absolute Lymphs (auto) 0.8 L
Absolute Monos (auto) 1.5 H
Neutrophils % 86.9 H
Lymphocytes % 4.2 L
Sodium 133 L
BUN 80 H
Creatinine 2.5 H
Glucose 101 H
Lactic Acid 3.1 H
AST 80 H
ALT 50 H
Urine Occult Blood 4+ A
Ur Leukocyte Esterase 3+ A
Urine RBC 3-6 A
Urine WBC 30-40 A
Urine Bacteria Many A
Urine Albumin 2+ A
CXR
No acute cardiopulmonary process.
CT Abd/pelvis Wo Iv Cont
- Obstructive uropathy secondary to an 8 mm calculus in the distal left ureter causing mild left hydroureteronephrosis.
- Multiple small bilateral intrarenal calculi.
- Extensive colonic diverticulosis.
- Other chronic findings, as detailed above.
01/06/2024 SHELDON - LVEF 55-60%.
02/11/2024: Cardiac catheterization
1. Right dominant circulation with moderate, external calcification of the LAD and a 40% lesion in the ostium of the first diagonal.
2. Severely elevated filling pressures (LVEDP = 25 mmHg at 50.3 kg).
3. Severe subclavian, brachial and radial artery tortuosity with multiple vessel loops, requiring transition to 4 Turkmen catheters and an Amplatz extra-stiff wire for catheter exchanges.
4. No obvious ischemic source of ventricular tachycardia.
Last hospitalist admission: under CBC card Elisabet Villalta,
DATE OF ADMISSION: 05/03/2024 - DATE OF DISCHARGE: 05/04/2024
DISCHARGE DIAGNOSES:
1. Ventricular tachycardia.
2. Progressive high-degree conduction disease with second-degree AVB and left bundle branch block.
3. Status post biventricular ventricular implantable cardioverter-defibrillator implant, 05/03/2024.
4. Procedural complication of left pneumothorax.
5. Hypertension.
6. Hyperlipidemia.
7. COPD/emphysema with former tobacco abuse.
8. Moderate to severe aortic regurgitation.
9. Coronary calcification on CAT scan.
ASSESSMENT & PLAN
Pending Rx reconciliation
Septic shock 2/2 obstructing Lt ureteric stone
- Hypotensive on arrival 90s/50s.
- BP 98/42 w/ map of 61 w/ a little less than a liter IVF left.
- Afebrile. WCC 18.5, LA 3.1.
- Associated MELISSA with Cr 2.5
- CT POS 8mm obstructing stone in distal left ureter.
- UCx and BCx sent
- empiric IV Vancomycin and Zosyn
- receiving sepsis bolus fluids now then switch to LR IVF
- Trend MAP to following 2L and consider presser at that point.
- Urgent Uro Dr. Cleaning consulted - planning for urgent OR
Hypotension due to septic shock
Benign HTN
- Hold bisoprolol, diltiazem. ACEI due to septic shock
s/p Bi- Ventricular ICD placement( [employer] 05/03/24)
HX LBBB
HX Ventricular tachycardia.
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
Coronary artery calcification on CT
-Chronic, stable.
- rosuvastatin to 20 mg.
COPD HX
-Stable, not in exacerbation.
-Continue Trelegy.
-Follow up with pulmonary in the outpatient setting.
HX Aortic regurgitation, moderate, eccentric.
HX Mildly dilated ascending aorta, 4.1 cm by SHELDON.
HX LBBB, present as a new patient for office visit, likely chronic.
HX Hypercalcemia, with elevated PTH
HX Former smoker, continue cessation recommended
DVT Px: SCD
Full code
ICU post Uro procedure
Total Critical Care Time_55____ minutes.
I was immediately available to the patient and staff. I personally examined, reviewed labs, diagnostic images/reports, interpretations, treatment plans, discussed patient care with other providers and family or caregivers (if patient is unable to
make decisions), entered orders as appropriate and documented the medical record.
--- NOTE | 2025-05-19 17:24 | CONS.URO ---
Consultation
-
Date/Time Consultation Requested: 05/19/2025 1655
Date/Time Consultation Performed: 05/19/2025 1705
Requesting Provider: ED
Performing Provider: Black
Reason for Consultation: left ureteral stone + sepsis
Medical History
History of Present Illness
ED note: 'Patient is an 80-year-old female with history hypertension, COPD who presents to the emergency department with progressively worsening weakness, lack of appetite, and vague abdominal discomfort. Patient states she was treated for a UTI
about 3 weeks ago with a course of Keflex. At that time she was asymptomatic however evidence of UTI was found during a routine physical. Patient states that over the past few days - weeks she has been struggle with increasing fatigue, generalized
weakness, and vague upper abdominal discomfort. She has very little appetite and has not been eating/drinking much.
She also reports chronic cough with worsening shortness of breath. She denies any vomiting, chest pain. No dysuria or hematuria. No flank/back pain.'
no prior stone hx
under evaluation for hyperparathyroidism
Past Medical History
Past Medical History: COPD (former smoker), HTN and Other (hyperparathyroidism)
Social History
Tobacco: Former Smoker
Allergies/Home Medications
Allergies
Allergy/AdvReac Type Severity Reaction Status Date / Time
No Known Allergies Allergy Verified 05/19/25 12:43
Home Medications
�Medication �Instructions �Recorded �Confirmed �Type
lisinopril 10 mg tablet 10 mg PO DAILY Blood Pressure 01/06/24 05/19/25 History
bisoprolol fumarate 5 mg tablet 5 mg PO QPM Blood Pressure 02/10/24 05/19/25 History
fluticasone fur. 100 mcg-umeclid 1 inh inhalation R DAILY 02/10/24 05/19/25 History
62.5 mcg-vilant 25 mcg Lung/Breathing Issues
inhalat.powder (Trelegy Ellipta)
aspirin 81 mg chewable tablet 81 mg PO DAILY Blood clot 02/12/24 05/19/25 Rx
(Children's Aspirin) prevention/tx #0 tabs
cholecalciferol (vitamin D3) 25 25 mcg PO DAILY Supplement #30 caps 02/12/24 05/19/25 Rx
mcg (1,000 unit) capsule (Vitamin
D3)
vit C 250 mg-vit E 90 mg-zinc 40 1 tab PO BID Supplement 04/21/24 05/19/25 History
mg-copper 1 [id number]
capsule (PreserVision AREDS-2)
furosemide 20 mg tablet 20 mg PO DAILY Fluid 05/03/24 05/19/25 History
Retention/Swelling
alendronate 70 mg tablet (Fosamax) 70 mg PO FR 05/19/25 05/19/25 History
rosuvastatin 10 mg tablet (Crestor) 10 mg PO DAILY 05/19/25 05/19/25 History
Physical Exam
Vital Signs
Vital Signs
Temp Pulse Resp BP Pulse Ox
98.1 F 70 27 112/51 96
05/19/25 15:41 05/19/25 17:15 05/19/25 17:15 05/19/25 17:15 05/19/25 17:00
Lab / Testing Results
Laboratory Results
05/19/25 12:59
05/19/25 12:59
Physical Exam
adult female on ED [facility]
General: No Apparent Distress
GI: Soft and Non Tender
Genito-urinary: No Costovertebral Tend
Skin: Warm
Neuro: Awake and Alert
Psych: Calm and Intact Judgement
Assessment / Plan
-
Left lower ureteral stones -- obstructing
sepsis
numerous bilateral nephrolithiasis
hyperparathyroidism
plan: emergently to OR for cysto, stone dislodgement, stenting
Data Reviewed
-
CT Scan: Image personally visualized and interpreted
Lab Data: Labs Reviewed
Old Records: Reviewed
--- NOTE | 2025-05-19 17:31 | W.SUR.PREOP ---
Pre-Operative Surgical Note
-
I have examined this patient prior to the performance of the scheduled procedure.
The patient's condition is unchanged from the time of the current History and
Physical and the patient is able to undergo the scheduled procedure.
Consent signed
daughter apprised via phone
--- NOTE | 2025-05-19 18:12 | W.IMMPOSTOP ---
Surgical Immed Post Op Note
-
Primary Surgeon: Black
Pre-op Diagnosis: obstructing left ureteral stone with sepsis
Post-op Diagnosis: same
Procedure Performed: cysto, stone dislodgement, stenting
Anesthesia Type: LMA
Specimen / Cultures: none
Estimated Blood Loss: none
Complications: none
Operative Findings: purulent urine released upon relief of obstruction
Tubes: left ureteral stent; Andino
[2025-05-19] MEDS: LR 1000 IV (19:12)
--- NOTE | 2025-05-19 19:33 | PHA.VAN.IN ---
Assessment
- Assessment
Renal Function: SCR Appears Elevated from baseline ( - 04/27/25)
Concomitant Antimicrobials: piperacillin/tazobactam
Plan
- Plan
Initial / Loading Dose: vanc 1500mg administered @ 1600
Maintenance Regimen: dosing by level
Monitoring: random level 8/15 AM
Pharmacokinetics Vancomycin I
- -
Patient Age: 80
Patient Sex: Female
Vancomycin Day #: 1
Indication: Genito-Urinary Tract
Requesting Provider: Dr. Phelan
Pertinent Antimicrobial Allergies:
no pertinent antimicrobial allergies
Height / Weight:
Height 5 ft 3 in
Actual Weight 58.2 kg
- Vital Signs / Lab Results
Temp Pulse Resp BP Pulse Ox
99.4 F 70 24 93/36 93
05/19/25 18:24 05/19/25 18:31 05/19/25 18:45 05/19/25 18:45 05/19/25 19:15
Lab Results - Hematology
05/19/25
12:59
WBC 18.5 H
Lab Results - Chemistry
05/19/25
12:59
BUN 80 H
Creatinine 2.5 H
Albumin 3.7
05/19/25 05/19/25 05/19/25
13:00 18:52 Unknown
Lactic Acid 3.1 H 1.6 1.9
Lab Results - Urine
05/19/25
14:56
Urine Nitrite Negative
Ur Leukocyte Esterase 3+ A
Urine WBC 30-40 A
Ur Squamous Epith Cells 0-2
Urine Bacteria Many A
[2025-05-19] MEDS: LR 250 IV (21:09)
[2025-05-19 21:33] LABS: INR 1.11; PT 14.8 Sec (11.4-14.6)
[2025-05-19 21:34] LABS: APTT 29.4 Sec (23.4-35.0)
[2025-05-19 21:40] LABS: Blood Urea Nitrogen 69 mg/dl (7-17); Calcium 7.8 mg/dl (8.4-10.2); Carbon Dioxide 20 mmol/L (22-30); Chloride 106 mmol/L (98-107); Estimated Creatinine Clearance 19 ml/min; Glucose 146 mg/dl (70-99); Magnesium 1.9 mg/dl (1.6-2.3); Potassium 4.1 mmol/L (3.5-5.1); Sodium 132 mmol/L (135-145); eGFR 26.20
[2025-05-19] MEDS: LEVOPHED 250 IV (22:10)
--- NOTE | 2025-05-19 22:30 | PTCARENOTE ---
rec'd patient from PACU around 193. repeat labs sent. LA cleared. BP remains soft, 250 LR bolus given with no improvement, levo gtt initiated. pt oriented x3. V paced on monitor. diet advanced to clear liquids. ruiz with adequate UOP. maintenance
fluids started. pt denies pain. family at bedside. call love in reach.
[2025-05-20] VITALS (39 sets, daily range): BP systolic 89–136; BP diastolic 41–67; BMI 23.1
[2025-05-20] MEDS: LR 1000 IV ×2 (02:07→12:16)
[2025-05-20] MEDS: ZOSYN 50 IV ×4 (04:57→21:23)
[2025-05-20 05:22] LABS: Hematocrit 31.3 % (37.0-47.0); Hemoglobin 10.2 g/dL (12.0-16.0); Mean Corp Hgb Conc. 32.6 g/dL (33.0-37.0); Mean Corpuscular Volume 92.3 fL (81.0-99.0); Platelet Count 224 10^3/uL (130-400); Red Cell Dist. Width 12.9 % (11.5-14.5)
--- NOTE | 2025-05-20 05:37 | PTCARENOTE ---
AM labs sent. pt denies pain. levo gtt continues at low dose. ruiz care done. call love in reach.
[2025-05-20 05:39] LABS: ALT (SGPT) 70 U/L (0-35); AST (SGOT) 70 U/L (14-36); Albumin 2.9 g/dl (3.5-5.0); Alkaline Phosphatase 83 U/L (38-126); Blood Urea Nitrogen 61 mg/dl (7-17); Calcium 8.2 mg/dl (8.4-10.2); Carbon Dioxide 20 mmol/L (22-30); Chloride 110 mmol/L (98-107); Estimated Creatinine Clearance 20 ml/min; Glucose 202 mg/dl (70-99); Magnesium 2.0 mg/dl (1.6-2.3); Potassium 4.8 mmol/L (3.5-5.1); Sodium 137 mmol/L (135-145); Total Protein 5.5 g/dl (6.3-8.2); eGFR 27.96
--- NOTE | 2025-05-20 06:57 | CON.INTV ---
Addendum entered and electronically signed by Richard Maya MD 05/20/25 18:48:
Patient transferring out of ICU.
Sales Service Representative service will sign off, please call as needed.
Original Note:
Consultation
Consultation Request
Date/Time Consultation Requested: 05/19/2025
Date/Time Consultation Performed: 05/20/2025
Medical History
-
History of Present Illness:
Patient is 80-year-old female with known history of COPD, prior UTI who presented to emergency room with vague abdominal discomfort and overall feeling poorly. She had been treated with Keflex for E. coli in urine in April. Workup in the emergency
room was again suggestive of UTI and a CT was performed which was suggestive of obstructive uropathy and hydroureteronephrosis on the left side. Patient also noted to be hypotensive, received fluid resuscitation, antibiotics and was subsequently
evaluated by urology service. Patient was taken to the OR and had cystoscopy, stone dislodgment and stent placement and postprocedure was admitted to ICU in view of pressor need. Sales Service Representative consultation was requested for further input.
Past Medical History
Past Medical History: Reports Other
Additional Past Medical History:
COPD
Hypertension
Mitral regurgitation
Left bundle branch block
Cataracts
Irregular heartbeat
Past Surgical History: Reports Other
Additional Past Surgical History:
Left elbow fracture repair
Left eye cataract surgery
Social History
Tobacco: Former Smoker
Alcohol: Occasional
Drug: None
Family History
Family History: Not pertinent
Allergies / Home Medications
Allergies / Home Medications
Allergies
Allergy/AdvReac Type Severity Reaction Status Date / Time
No Known Allergies Allergy Verified 05/19/25 12:43
Home Medications
�Medication �Instructions �Recorded �Confirmed �Last Taken �Type
lisinopril 10 mg tablet 10 mg PO DAILY Blood Pressure 01/06/24 05/19/25 05/19/25 History
bisoprolol fumarate 5 mg tablet 5 mg PO QPM Blood Pressure 02/10/24 05/19/25 05/18/25 History
fluticasone fur. 100 mcg-umeclid 1 inh inhalation R DAILY 02/10/24 05/19/25 05/19/25 History
62.5 mcg-vilant 25 mcg Lung/Breathing Issues
inhalat.powder (Trelegy Ellipta)
aspirin 81 mg chewable tablet 81 mg PO DAILY Blood clot 02/12/24 05/19/25 05/19/25 Rx
(Children's Aspirin) prevention/tx #0 tabs
cholecalciferol (vitamin D3) 25 25 mcg PO DAILY Supplement #30 caps 02/12/24 05/19/25 05/19/25 Rx
mcg (1,000 unit) capsule (Vitamin
D3)
vit C 250 mg-vit E 90 mg-zinc 40 1 tab PO BID Supplement 04/21/24 05/19/25 05/19/25 History
mg-copper 1 [id number]
capsule (PreserVision AREDS-2)
furosemide 20 mg tablet 20 mg PO DAILY Fluid 05/03/24 05/19/25 05/18/25 History
Retention/Swelling
alendronate 70 mg tablet (Fosamax) 70 mg PO FR 05/19/25 05/19/25 05/13/25 History
rosuvastatin 10 mg tablet (Crestor) 10 mg PO DAILY 05/19/25 05/19/25 05/19/25 History
Review of Systems
-
Hematologic/Lymphatic: Other (All 14 systems reviewed and negative except as stated above in the history of present illness.)
Vitals / Labs / Diagnostic Testing
Vital Signs
Temp Pulse Resp BP Pulse Ox
97.7 F 63 18 123/44 92
05/20/25 03:14 05/20/25 06:30 05/20/25 06:30 05/20/25 06:30 05/20/25 04:30
Lab Data
05/20/25 04:58
05/20/25 04:58
Laboratory Results
05/19/25 05/20/25
21:14 06:00
PT 14.8 H
INR 1.11
APTT 29.4 Cancelled
Diagnostic Testing:
Physical Exam
-
HEENT: Normocephalic
Cardiovascular: S1/S2
Respiratory: Clear
GI: Soft and Non Distended
Neurology: Awake and Alert
Skin: Warm
General: Comfortable
Assessment
-
#1. Septic shock with complicated UTI, obstructive uropathy
-8 mm stone in the left distal left ureter with left hydroureteronephrosis
-S/p cystoscopy, stone dislodgment and stent placement, urology service on case
-Continue IV fluid resuscitation, pressors as needed to keep MAP above 65, continue antibiotics, follow-up on blood and urine cultures.
-Blood culture and urine culture pending. Prior history of E. coli in urine in 04/2025.
-Mild dyspnea reported, x-ray suggestive of left lower lobe atelectasis. IV fluids held. Patient doing well on room air.
#2. H/o COPD
- Has been on Trelegy inhaler once daily. Spirometry 12/09/2023:�showed FEV1/FVC 38%, FEV1 1 L-52%, FVC 2.58 L-100%.� Moderate airflow obstruction.� Suggestion of hyperinflation..
- Emphysema noted on imaging
- Current presentation not consistent with COPD exacerbation
- Patient will resume follow-up with [facility] pulmonary, follows up with Dr. Sinha
- Continue substitution of Trelegy with Symbicort and Spiriva while in hospital.
#3. H/o CAD and VT, s/p Bi-ICD (Medtronic 04/2024).
- No reported chest pain. Continue aspirin and statins. Hold off any beta-blockers considering hypotension and shock.
4 MELISSA on admission
- Due to obstructive uropathy as well as sepsis.
- Responding well to IV hydration, creatinine down to 1.8 from 2.5 on admission. Good urine output.
- Keep MAP above 65, avoid nephrotoxic medications,
#5. Hyperglycemia.
- Sliding scale insulin
Other medical diagnoses:
- HTN
- HLD
- H/o LBBB
- H/o Smoking
DVT prophylaxis: Subcu heparin
Critical Care time 56 mins -- The patient is admitted for acute critical illness for the treatment of vital organ failure and/or prevention of further life-threatening conditions. Total care includes time spent in review of history, physical exam,
medications, hemodynamic/ventilator parameters, laboratory data, imaging and discussion with house staff, pharmacy, respiratory therapy, consumer insight analyst, and nursing.
Data:
CXR 05/2025: No acute cardiopulmonary process.
CT A/P 05/2025: Obstructive uropathy secondary to an 8 mm calculus in the distal left ureter causing mild left hydroureteronephrosis.
Multiple small bilateral intrarenal calculi.
Extensive colonic diverticulosis.
Other chronic findings, as detailed above.
CT Chest 10/2023: Emphysema.
No acute airspace process. Minimal scarring in both lung bases.
Mild atherosclerotic vascular disease.
Large 6.4 cm cyst in the dome of the liver. Small cyst in the upper pole the left kidney. Diverticulosis.
C 02/2024: 1. Right dominant circulation with moderate, external calcification of the LAD and a 40% lesion in the ostium of the first diagonal.
2. Severely elevated filling pressures (LVEDP = 25 mmHg at 50.3 kg).
3. Severe subclavian, brachial and radial artery tortuosity with multiple vessel loops, requiring transition to 4 Lithuanian catheters and an Amplatz extra-stiff wire for catheter exchanges.
4. No obvious ischemic source of ventricular tachycardia.
ECHO 10/2023: Left ventricle is moderately dilated with severe concentric hypertrophy and
normal left ventricular systolic function. Left ventricular ejection fraction
is 76%, by Lemus' s method. Normal diastolic function.
Normal right ventricular size and function.
Moderate left atrial dilation.
Mild right atrial dilation.
Mild to moderate mitral regurgitation. There is systolic anterior motion of
the chordae without LVOT obstruction.
Moderate aortic root dilation for BSA. Ascending aorta is 4.1 cm.
No evidence of pulmonary hypertension.
--- NOTE | 2025-05-20 07:22 | W.PN.URO.CBU ---
Today's Communication / Plan
-
Rec: discharge on 14 day course of indicated antibiotic; pt will be scheduled to return for definitive surgical removal of stone in 7-14 days
Assessment / Plan
-
Left lower ureteral stones -- obstructing
sepsis
numerous bilateral nephrolithiasis
hyperparathyroidism
s/p emergent cysto, stone dislodgement, stenting
Diagnosis
-
Date of Service: May 20, 2025
-
Patient Diagnosis:
Left lower ureteral stones -- obstructing
sepsis
numerous bilateral nephrolithiasis
hyperparathyroidism
s/p emergent cysto, stone dislodgement, stenting
Post Op Day: 1
Objective
-
Vital Signs
Temp Pulse Resp BP Pulse Ox
97.7 F 63 18 123/44 92
05/20/25 03:14 05/20/25 06:30 05/20/25 06:30 05/20/25 06:30 05/20/25 04:30
Intake and Output
05/19/25 05/20/25 05/21/25
06:59 06:59 06:59
Intake Total 2450.0 / 2450.0
Output Total 1700 / 1700
Balance 750.0 / 750.0
Intake:
Oral fluids 960 / 960
IV fluids (Total) 1140.0 / 1140.0
Levo 180.0 / 180.0
Lr 1,000 ml @ 120 mls/hr IV . 960 / 960
[id number] [facility] Rx#:[id number]
IV piggybacks 350 / 350
Output:
Urine, Andino 1700 / 1700
Laboratory Results
05/20/25 04:58
05/20/25 04:58
Physical Exam
-
General - well developed, well nourished, no acute distress
Chest - clear bilaterally
Abdomen - soft, non-tender, positive bowel sounds, no CVAT, no incisional pain or distention
Genitalia - normal
Rectal - normal
Skin - warm & dry with no rash
Neuro - AOx3, no motor deficits
Extremities - no clubbing, no cyanosis, no edema
Incision - clean, dry
Dressing - clean, dry, intact
[2025-05-20] MEDS: SPIRIVA RESPIMAT 2.5 MCG 2 PUFF INH (07:24)
[2025-05-20] MEDS: SYMBICORT 80/4.5 MCG INHALER 2 PUFF INH ×2 (07:24→20:32)
[2025-05-20 07:47] LABS: Glucose - Point of Care 210 mg/dl (70-99)
--- NOTE | 2025-05-20 07:51 | PHA.VAN.FU ---
Addendum entered and electronically signed by Danika Ford [facility] 05/20/25 08:09:
Agree with assessment and plan
Original Note:
Vancomycin Assessment / Plan
- Assessment
Renal Function: SCR Decreasing
WBC's are: WNL
In the past 24 hrs, patient has been: Afebrile
Concomitant Antimicrobials: piperacillin/tazobactam
- Assessment - Therapeutic Drug Monitoring
Random Level: 5.5 - drawn ~13H after dose of 1500mg
- Dosing Plan
Dosing by Level: Re-dose today (give 1000mg x1 dose)
- Monitoring Plan
Random Level: 05/21 0600
- Follow Up
Pharmacy will continue to follow.
Vancomycin Follow UP
- -
Patient Age: 80
Patient Sex: Female
Vancomycin Day #: 2
Indication: Genito-Urinary Tract
Requesting Provider: Dr. Phelan
Pertinent Antimicrobial Allergies:
no pertinent antimicrobial allergies
Height / Weight:
Height 5 ft 3 in
Actual Weight 59.2 kg
- Vital Signs / Lab Results
Temp Pulse Resp BP Pulse Ox
97.7 F 79 18 123/44 92
05/20/25 03:14 05/20/25 07:25 05/20/25 07:25 05/20/25 06:30 05/20/25 04:30
Lab Results - Hematology
05/19/25 05/20/25
12:59 04:58
WBC 18.5 H 8.8
Lab Results - Chemistry
05/19/25 05/19/25 05/20/25
12:59 21:14 04:58
BUN 80 H 69 H 61 H
Creatinine 2.5 H 1.9 H 1.8 H
Estimated Creat Clear 19 20
Albumin 3.7 2.9 L
05/19/25 05/19/25 05/19/25
13:00 18:52 21:14
Lactic Acid 3.1 H 1.6 1.6
05/19/25 05/20/25 05/20/25
Unknown 02:31 06:31
Lactic Acid 1.9 Cancelled Cancelled
Lab Results - Urine
05/19/25
14:56
Urine Nitrite Negative
Ur Leukocyte Esterase 3+ A
Urine WBC 30-40 A
Ur Squamous Epith Cells 0-2
Urine Bacteria Many A
Therapeutic Drug Monitoring
Random Vancomycin 5.5 ug/ml 05/20/25 04:58
[2025-05-20] MEDS: CRESTOR 10 MG PO (08:38)
[2025-05-20] MEDS: LOW STRENGTH ASPIRIN 81 MG PO (08:38)
[2025-05-20] MEDS: VANCOCIN 200 IV (08:38)
[2025-05-20] MEDS: LEVOPHED 250 IV (08:52)
[2025-05-20] MEDS: NOVOLOG FLEXPEN-LOW RESISTANCE 2 UNITS SC (08:52)
--- NOTE | 2025-05-20 09:21 | PTCARENOTE ---
patient report received, assessments per work list. patient denies pain, lungs with scattered exp wheezes, no cough. abdomen soft, ruiz draining yellow urine. levophed titration per work list. call love in reach
--- NOTE | 2025-05-20 09:47 | CM ---
Patient seen at bedside in ICU. Patient states that she lives alone in a 2 story home with no DME at home. Patient PCP is Dr. Chopra and [facility] [place], [place]. Patient plan is for discharge home with VN. CM will continue to follow
for discharge planning needs.
Plan; home with no needs anticipated at this point; watch for any VN needs.
--- NOTE | 2025-05-20 10:01 | W.PN.UPDATE ---
Update Note
Progress Note Update
Pt sitting up in ICU bed, reading menu.
'I feel fine.'
no questions
Andino to be removed by JENNIE Russo.
[2025-05-20] MEDS: HEPARIN 5000 UNITS SC ×2 (12:16→21:24)
[2025-05-20 12:25] LABS: Glucose - Point of Care 277 mg/dl (70-99)
[2025-05-20] MEDS: NOVOLOG FLEXPEN-LOW RESISTANCE 3 UNITS SC (12:38)
--- NOTE | 2025-05-20 13:03 | PTCARENOTE ---
patient reassessed, tolerating diet, lungs with basilar crackles. no cough. ruiz removed. assisted out of bed. dyspnea with exertion. pulse oximeter 94. Flash Welder updated with changes. orders received, IVF capped. cxr taken. call love in reach.
--- NOTE | 2025-05-20 13:59 | W.PN.HOSP.TC ---
Addendum entered and electronically signed by Vicky Prajapati MD 05/24/25 07:37:
Hyponatremia resolved
Original Note:
Today's Communication/Plan
-
Improving, continue IV antibiotics. Andino removal per urology
Assessment / Plan
Assessment / Plan
78F Former smoker, HX LBBB s/p BiVentricular ICD placement( Medtronic 05/03/24) for HX VT after stress test, HX coronary artery calcification, HTN, , COPD p/w progressively worsening weakness, lack of appetite, and abdominal discomfort. Found to
have Septic shock 2/2 obstructing Lt ureteral stone.
Septic shock 2/2 obstructing Lt ureteral stone
Taken emergently to the OR by urology. s/p cysto, stone dislodgement, stenting.
Improving WCC 18.5 --> 8.8 , LA 3.1 --> 1.9. Cr. 2.5--> 1.[address] Removal per urology
- UCx and BCx pending
- empiric IV Vancomycin and Zosyn, continue
- Continue IV fluid
Wean off Levophed as able.
h/o Benign HTN
- Hold bisoprolol, diltiazem, ACEI due to septic shock
s/p Bi- Ventricular ICD placement( Medtronic 05/03/24)
HX LBBB
HX Ventricular tachycardia.
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
Coronary artery calcification on CT
-Chronic, stable.
- rosuvastatin to 20 mg.
COPD HX
-Stable, not in exacerbation.
-Continue Trelegy.
-Follow up with pulmonary in the outpatient setting.
DVT ppx
hep sc q8
Anticipated Discharge: 24 - 48 hours
Subjective/Interval History
-
Date of Service: May 20, 2025
Patient feeling well denies any issues overnight. Daughter is at bedside
Objective Data
-
Labs:
Laboratory Results
05/20/25 05/20/25
04:58 06:00
WBC 8.8
Hgb 10.2 L
Hct 31.3 L
Plt Count 224
APTT Cancelled
Sodium 137
Potassium 4.8
Chloride 110 H
Carbon Dioxide 20 L
BUN 61 H
Creatinine 1.8 H
Glucose 202 H
Calcium 8.2 L
Total Bilirubin 0.5
AST 70 H
ALT 70 H
Alkaline Phosphatase 83
Vital Signs:
Vital Signs
Temp Pulse Resp BP Pulse Ox
97.5 F 76 25 92/50 96
05/20/25 11:00 05/20/25 10:30 05/20/25 10:30 05/20/25 10:15 05/20/25 08:30
I&O
05/19/25 05/20/25 05/21/25
06:59 06:59 06:59
Intake Total 2450.0 / 2592.5 1345.0 / 1345.0
Output Total 1700 / 1700 700 / 700
Balance 750.0 / 892.5 645.0 / 645.0
Review of Systems
-
All other systems: Reviewed and negative
Physical Exam
-
General: No Apparent Distress
HEENT: Moist Mucous Membranes, Anicteric and PERRLA
Respiratory: Clear to Auscultation; Negative Wheezes, Rales or Rhonchi
Cardiac: Regular Rhythm and S1/S2; Negative Murmur, Rub or Gallop
GI: Soft, Nontender, Nondistended and Normal Bowel Sounds
Genito-urinary: Andino (Cloudy yellow urine)
Musculoskeletal: No Edema
Skin: Warm and Dry; Negative Rash, Ulcers or Lesions
Neuro: Awake and AO x 3
Hematologic / Lymphatic: No Lymphadenopathy
Psych: Calm
Data Reviewed
-
CT Scan: Report Reviewed by me
Labs: Labs Reviewed by me, Discussed with Patient and Discussed with Family
--- NOTE | 2025-05-20 15:17 | PN.CDI ---
CDI
- -
CDI:
Physician Documentation Request
Admit Date: 05/19/25 18:29
Dear Doctor Alo,
Please review the following and provide your response in the progress notes.
Clinical Indicators:
Pt admitted with Septic shock 2/2 complicated UTI and obstructing ureteral stone s/p Cysto stone dislodgement/stenting ureter
Sodium levels are as below /Pt did get IVFs LR
05/19/25 05/19/25
12:59 21:14
Sodium 133 L 132 L
Based on the above, could you clarify in the progress notes, the appropriate diagnosis, if significant, that supports the above abnormalities and additional evaluation, monitoring and/or treatment rendered:
Hyponatremia
Abnormal lab value
Other ( please specify)
Use of terms such as suspected, likely, concern for, or probable (associated with a specific diagnosis that is being evaluated, monitored, or treated as if it exists) are acceptable and can be coded in the inpatient setting, when documented at the
time of discharge.
Thank you,
Sara Aden RN
CDI Specialist
Left Hand Text
Please use your independent medical judgment in providing your response.
--- NOTE | 2025-05-20 16:19 | PTCARENOTE ---
patient reassessed, ambulated to the bathroom with assist of 1 staff. voided large amount yellow urine. missed collection hat in commode so not measured. PVR 45. remains dyspneic with exertion. using IS with encouragement. crackles unchanged. no
wheezes. remains on room air. call love in reach
[2025-05-20] MEDS: NOVOLOG FLEXPEN-LOW RESISTANCE SC (17:33)
[2025-05-20 17:44] LABS: Glucose - Point of Care 134 mg/dl (70-99)
--- NOTE | 2025-05-20 20:00 | PTCARENOTE ---
Received pt. at 1900. Pt. awake, alert, and oriented. Denies pain/discomfort. Afebrile. Heart rhythm sinus. Blood pressure normotensive. Currently on room air. PO diet, good appetite. Voiding without issue. Skin as documented. Discussed plan of care
with patient. Vital signs stable at this time.
[2025-05-21] VITALS (9 sets, daily range): BP systolic 103–151; BP diastolic 51–66; BMI 23.3
[2025-05-21] MEDS: ZOSYN 50 IV ×4 (05:06→21:09)
[2025-05-21 05:37] LABS: Hematocrit 34.3 % (37.0-47.0); Hemoglobin 11.1 g/dL (12.0-16.0); Mean Corp Hgb Conc. 32.4 g/dL (33.0-37.0); Mean Corpuscular Volume 92.2 fL (81.0-99.0); Nucleated Red Blood Cells % 0 %; Platelet Count 272 10^3/uL (130-400); Red Cell Dist. Width 13.0 % (11.5-14.5)
[2025-05-21 05:56] LABS: Blood Urea Nitrogen 53 mg/dl (7-17); Calcium 9.5 mg/dl (8.4-10.2); Carbon Dioxide 20 mmol/L (22-30); Chloride 110 mmol/L (98-107); Estimated Creatinine Clearance 24 ml/min; Glucose 116 mg/dl (70-99); Potassium 4.8 mmol/L (3.5-5.1); Sodium 140 mmol/L (135-145); eGFR 34.79
[2025-05-21] MEDS: HEPARIN 5000 UNITS SC ×2 (07:18→21:07)
[2025-05-21] MEDS: LOW STRENGTH ASPIRIN 81 MG PO (07:18)
[2025-05-21] MEDS: CRESTOR 10 MG PO (07:18)
[2025-05-21] MEDS: NOVOLOG FLEXPEN-LOW RESISTANCE SC ×3 (07:19→16:25)
[2025-05-21 07:22] LABS: Glucose - Point of Care 92 mg/dl (70-99)
--- NOTE | 2025-05-21 07:29 | PTCARENOTE ---
report received, assessments per work list. patient denies pain, AV pacing. assisted to bathroom. voided large amount pungent yellow urine. missed collection device. dyspneic with exertion. pulse oximeter 90 after ambulation, up to 96 at rest.
exertional wheezing, non productive cough. diminished breath sounds bases. up to chair. call love in reach
--- NOTE | 2025-05-21 07:58 | PHA.VAN.FU ---
Vancomycin Assessment / Plan
- Assessment
Renal Function: SCR Decreasing
WBC's are: Trending Up
In the past 24 hrs, patient has been: Afebrile
Concomitant Antimicrobials: Piperacillin-tazobactam
- Assessment - Therapeutic Drug Monitoring
Random Level: 11 ~ 21hrs post Vanc 1gm
- Dosing Plan
Continue: Dose by level
Dosing by Level: Re-dose today (Vanc 1gm)
- Monitoring Plan
Random Level: 8 AM
- Follow Up
Pharmacy will continue to follow.
Vancomycin Follow UP
- -
Patient Age: 80
Patient Sex: Female
Vancomycin Day #: 3
Indication: Genito-Urinary Tract
Requesting Provider: Dr. Phelan
Pertinent Antimicrobial Allergies:
no pertinent antimicrobial allergies
Height / Weight:
Height 5 ft 3 in
Actual Weight 59.6 kg
- Vital Signs / Lab Results
Temp Pulse Resp BP Pulse Ox
97.6 F 67 16 151/66 96
05/21/25 07:34 05/21/25 07:30 05/20/25 20:34 05/21/25 07:12 05/21/25 07:31
Lab Results - Hematology
05/19/25 05/20/25 05/21/25
12:59 04:58 05:06
WBC 18.5 H 8.8 20.7 H
Lab Results - Chemistry
05/19/25 05/19/25 05/20/25
12:59 21:14 04:58
BUN 80 H 69 H 61 H
Creatinine 2.5 H 1.9 H 1.8 H
Estimated Creat Clear 19 20
Albumin 3.7 2.9 L
05/21/25
05:06
BUN 53 H
Creatinine 1.5 H
Estimated Creat Clear 24
Albumin
0805/19/25 05/19/25
13:00 18:52 21:14
Lactic Acid 3.1 H 1.6 1.6
05/19/25 05/20/25 05/20/25
Unknown 02:31 06:31
Lactic Acid 1.9 Cancelled Cancelled
Microbiology Results
05/19/25 14:57 Blood Culture - Preliminary
Blood/Venous No Growth in 24 hours- Final report to follow
05/19/25 14:56 Blood Culture - Preliminary
Blood/Venous No Growth in 24 hours- Final report to follow
Therapeutic Drug Monitoring
Random Vancomycin 11.0 ug/ml 05/21/25 05:06
[2025-05-21] MEDS: SYMBICORT 80/4.5 MCG INHALER 2 PUFF INH ×2 (08:16→18:23)
[2025-05-21] MEDS: SPIRIVA RESPIMAT 2.5 MCG 2 PUFF INH (08:16)
--- NOTE | 2025-05-21 08:29 | W.PN.HOSP.TC ---
Today's Communication/Plan
-
Tx to tele
Assessment / Plan
Assessment / Plan
78F Former smoker, HX LBBB s/p BiVentricular ICD placement( Medtronic 05/03/24) for HX VT after stress test, HX coronary artery calcification, HTN, , COPD p/w progressively worsening weakness, lack of appetite, and abdominal discomfort. Found to
have Septic shock 2/2 obstructing Lt ureteral stone.
Septic shock 2/2 obstructing Lt ureteral stone
Taken emergently to the OR by urology. s/p cysto, stone dislodgement, stenting.
Improving WCC 18.5 --> 8.8 , LA 3.1 --> 1.9. Cr. 2.5--> 1.8>1.5
- UCx and BCx pending
- empiric IV Zosyn. Discontinue vancomycin. Last known urine cultures showed E. coli.
- Off of Levophed. DC further fluids. Oral intake is good.
history of hyper parathyroidism
Last parathyroid scan this year showed left-sided parathyroid adenoma
Currently not hypercalcemic on admission.
She follows with hoop maker locally on Dr. Sergo Oviedo - no surgery planned yet
h/o Benign HTN
- Hold bisoprolol, diltiazem, ACEI due to septic shock
s/p Bi- Ventricular ICD placement( Medtronic 05/03/24)
HX LBBB
HX Ventricular tachycardia.
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
Coronary artery calcification on CT
-Chronic, stable.
- rosuvastatin to 20 mg.
COPD HX
-Stable, not in exacerbation.
-Continue Trelegy.
-Follow up with pulmonary in the outpatient setting.
DVT ppx
hep sc q8
Tx to tele
DC in am if remains stable and cx data is available
Anticipated Discharge: 24 - 48 hours
Subjective/Interval History
-
Date of Service: May 21, 2025
Feels much improved today. Sitting in the chair. Resolved shortness of breath. She thinks the shortness of breath was in the setting of sepsis.
Denies any chest pain.
No nausea vomiting. No abdominal or flank pain.
Denies dysuria.
Objective Data
-
Labs:
Laboratory Results
05/21/25
05:06
WBC 20.7 H
Hgb 11.1 L
Hct 34.3 L
Plt Count 272 D
Sodium 140
Potassium 4.8
Chloride 110 H
Carbon Dioxide 20 L
BUN 53 H
Creatinine 1.5 H
Glucose 116 H
Calcium 9.5
Vital Signs:
Vital Signs
Temp Pulse Resp BP Pulse Ox
97.6 F 66 16 151/66 96
05/21/25 07:34 05/21/25 08:22 05/21/25 08:22 05/21/25 07:12 05/21/25 07:31
I&O
05/20/25 05/21/25 05/22/25
06:59 06:59 06:59
Intake Total 2450.0 / 2592.5 2260.0 / 2260.0 360 / 360
Output Total 1700 / 1700 1700 / 1700
Balance 750.0 / 892.5 560.0 / 560.0 360 / 360
Physical Exam
-
Respiratory: Clear to Auscultation and Non Labored Respirations; Negative Accessory Resp Muscle Use
Cardiac: Regular Rhythm and S1/S2; Negative Tachycardic
GI: Soft and Nontender
Neuro: AO x 3
Psych: Calm; Negative Confused
Data Reviewed
-
Labs: Labs Reviewed by me
--- NOTE | 2025-05-21 09:13 | W.PN.URO.CBU ---
Today's Communication / Plan
-
Discharge on 14 day course of indicated antibiotic
Plan for definitive stone removal in 7-14 days w/ Dr. Cleaning
Assessment / Plan
-
Obstructing distal left ureteral stones
E. Coli urosepsis
Numerous non-obstructing bilateral nephrolithiasis
Hyperparathyroidism
Post Op Day:
05/19: s/p emergent cysto, stone dislodgement, left stent placement
Diagnosis
-
Date of Service: May 21, 2025
-
Patient Diagnosis:
Obstructing distal left ureteral stones
E. Coli urosepsis
Numerous non-obstructing bilateral nephrolithiasis
Hyperparathyroidism
Post Op Day:
05/19: s/p emergent cysto, stone dislodgement, left stent placement
Subjective
-
Tolerating diet.
Voiding w/o difficulty.
Objective
-
Vital Signs
Temp Pulse Resp BP Pulse Ox
97.6 F 66 16 151/66 96
05/21/25 07:34 05/21/25 08:22 05/21/25 08:22 05/21/25 07:12 05/21/25 07:31
Intake and Output
05/20/25 05/21/25 05/22/25
06:59 06:59 06:59
Intake Total 2450.0 / 2592.5 2260.0 / 2260.0 360 / 360
Output Total 1700 / 1700 1700 / 1700
Balance 750.0 / 892.5 560.0 / 560.0 360 / 360
Intake:
Oral fluids 960 / 960 1200 / 1200 360 / 360
IV fluids (Total) 1140.0 / 1282.5 735.0 / 735.0
Levo 180.0 / 202.5 75.0 / 75.0
Lr 1,000 ml @ 120 mls/hr IV . 960 / 1080 660 / 660
Q8H20M MARIA L Rx#:[id number]
IV piggybacks 350 / 350 325 / 325
Output:
Urine, Andino 1700 / 1700 700 / 700
Urine, Voided 1000 / 1000
Other:
Number of approximated MODERATE 1 1
amounts of urine
Laboratory Results
05/21/25 05:06
05/21/25 05:06
Physical Exam
-
General - well developed, well nourished, no acute distress
Abdomen - soft, non-tender, no CVAT
Skin - warm & dry with no rash
Extremities - no clubbing, no cyanosis, no edema
Care Review
Data Reviewed
Discussed with: Hospitalist
CT Scan: Report Pers Reviewed and Image Pers Reviewed
[2025-05-21 11:27] LABS: Glucose - Point of Care 116 mg/dl (70-99)
--- NOTE | 2025-05-21 14:48 | TRANSFER ---
Pt arrived to [facility] from ICU. Both daughters at bedside. Pt placed on telemetry. A-V paced on the monitor. HR 70's. 97% on RA. Bed locked and in lowest position. Call love within reach. Care ongoing.
[2025-05-21 16:16] LABS: Glucose - Point of Care 104 mg/dl (70-99)
[2025-05-21 21:24] LABS: Glucose - Point of Care 121 mg/dl (70-99)
[2025-05-22 03:00] VITALS: BP 120/70
[2025-05-22] MEDS: ZOSYN 50 IV ×2 (04:00→11:18)
[2025-05-22 05:05] LABS: Hematocrit 28.5 % (37.0-47.0); Hemoglobin 9.3 g/dL (12.0-16.0); Mean Corp Hgb Conc. 32.6 g/dL (33.0-37.0); Mean Corpuscular Volume 91.9 fL (81.0-99.0); Platelet Count 251 10^3/uL (130-400); Red Cell Dist. Width 13.2 % (11.5-14.5)
[2025-05-22 05:30] LABS: Blood Urea Nitrogen 41 mg/dl (7-17); Calcium 10.0 mg/dl (8.4-10.2); Carbon Dioxide 23 mmol/L (22-30); Chloride 115 mmol/L (98-107); Estimated Creatinine Clearance 24 ml/min; Glucose 96 mg/dl (70-99); Potassium 4.8 mmol/L (3.5-5.1); Sodium 141 mmol/L (135-145); eGFR 34.79
[2025-05-22 06:00] VITALS: BMI 23.5
[2025-05-22 07:00] VITALS: BP 107/62
[2025-05-22 07:15] LABS: Glucose - Point of Care 85 mg/dl (70-99)
[2025-05-22] MEDS: SYMBICORT 80/4.5 MCG INHALER 2 PUFF INH ×2 (07:54→17:48)
[2025-05-22] MEDS: SPIRIVA RESPIMAT 2.5 MCG 2 PUFF INH (07:55)
[2025-05-22] MEDS: CRESTOR 10 MG PO (08:09)
[2025-05-22] MEDS: NOVOLOG FLEXPEN-LOW RESISTANCE SC ×3 (08:09→17:10)
[2025-05-22] MEDS: HEPARIN 5000 UNITS SC ×2 (08:09→20:20)
[2025-05-22] MEDS: LOW STRENGTH ASPIRIN 81 MG PO (08:09)
--- NOTE | 2025-05-22 09:15 | W.PN.URO.CBU ---
Today's Communication / Plan
-
Discharge on 14 day course of indicated antibiotic
Plan for definitive stone removal in 7-14 days w/ Dr. Cleannig
Assessment / Plan
-
Obstructing distal left ureteral stones
E. Coli urosepsis
Numerous non-obstructing bilateral nephrolithiasis
Hyperparathyroidism
Post Op Day:
05/19: s/p emergent cysto, stone dislodgement, left stent placement
Diagnosis
-
Date of Service: May 22, 2025
-
Patient Diagnosis:
Obstructing distal left ureteral stones
E. Coli urosepsis
Numerous non-obstructing bilateral nephrolithiasis
Hyperparathyroidism
Post Op Day:
05/19: s/p emergent cysto, stone dislodgement, left stent placement
Subjective
-
Feels well.
Tolerating diet.
Afebrile.
Voiding comfortably w/o dysuria.
Objective
-
Vital Signs
Temp Pulse Resp BP Pulse Ox
97.7 F 68 18 107/62 97
05/22/25 07:00 05/22/25 07:58 05/22/25 07:58 05/22/25 07:00 05/22/25 07:58
Intake and Output
05/21/25 05/22/25 05/23/25
06:59 06:59 06:59
Intake Total 2260.0 / 2260.0 1300 / 1300
Output Total 1700 / 1700 500 / 500
Balance 560.0 / 560.0 800 / 800
Intake:
Oral fluids 1200 / 1200 1080 / 1080
IV fluids (Total) 735.0 / 735.0 20 / 20
Levo 75.0 / 75.0
Lr 1,000 ml @ 120 mls/hr IV . 660 / 660
Q8H20M MARIA L Rx#:[id number]
IV piggybacks 325 / 325 200 / 200
Output:
Urine, Andino 700 / 700
Urine, Voided 1000 / 1000 500 / 500
Other:
Number of approximated SMALL 1
amounts of urine
Number of approximated MODERATE 1 1 1
amounts of urine
Laboratory Results
05/22/25 04:02
05/22/25 04:02
Physical Exam
-
General - well developed, well nourished, no acute distress
Abdomen - soft, non-tender, no CVAT
Skin - warm & dry with no rash
Neuro - AOx3, no motor deficits
Extremities - no clubbing, no cyanosis, no edema
Counseling
-
D/w patient and daughter.
Care Review
Data Reviewed
Discussed with: Hospitalist and Family
CT Scan: Report Pers Reviewed and Image Pers Reviewed
Total Time Spent with Patient (in minutes): 25
[2025-05-22 11:20] VITALS: BP 128/62
[2025-05-22 12:36] LABS: Glucose - Point of Care 107 mg/dl (70-99)
--- NOTE | 2025-05-22 14:39 | W.PN.HOSP.TC ---
Today's Communication/Plan
-
Switch antibiotics to IV cefazolin
Check a BNP
Assessment / Plan
Assessment / Plan
78F Former smoker, HX LBBB s/p BiVentricular ICD placement( [employer] 05/03/24) for HX VT after stress test, HX coronary artery calcification, HTN, , COPD p/w progressively worsening weakness, lack of appetite, and abdominal discomfort. Found to
have Septic shock 2/2 obstructing Lt ureteral stone.
Septic shock 2/2 obstructing Lt ureteral stone
Taken emergently to the OR by urology. s/p cysto, stone dislodgement, stenting.
Improving WCC 18.5 --> 8.8 , LA 3.1 --> 1.9. Cr. 2.5--> 1.8>1.5
- UCx EColi and BCx neg
- switch to Cefazolin. Discontinue vancomycin.
- Off of Levophed.
Shortness of breath.
Chest wound with decreased breath sounds in general and no added sounds.
No lower extremity edema.
Chest x-ray from 05/20 showed partial atelectasis versus pneumonia in the lower lobes but no evidence of pulm edema.
Her weight has gone up by 4 pounds.
Denies prior history of heart failure but takes Lasix.
Check BNP and consider IV diuresis.
history of hyper parathyroidism
Last parathyroid scan this year showed left-sided parathyroid adenoma
Currently not hypercalcemic on admission.
She follows with rotary driller helper locally on Dr. Sergo Oviedo - no surgery planned yet
h/o Benign HTN
- Hold bisoprolol, diltiazem, ACEI due to septic shock
s/p Bi- Ventricular ICD placement( [employer] 05/03/24)
HX LBBB
HX Ventricular tachycardia.
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
Coronary artery calcification on CT
-Chronic, stable.
- rosuvastatin to 20 mg.
COPD HX
-Stable, not in exacerbation.
-Continue Trelegy.
-Follow up with pulmonary in the outpatient setting.
DVT ppx
hep sc q8
Discussed with daughter who is a family practice physician
Likely DC in a.m. depending on breathing issues.
Anticipated Discharge: Within 24 hours
Subjective/Interval History
-
Date of Service: May 22, 2025
Complains of shortness of breath with exertion today.
No dysuria or frequency of urine. No fever chills.
No lightheadedness.
Objective Data
-
Labs:
Laboratory Results
05/22/25
04:02
WBC 12.7 H
Hgb 9.3 L
Hct 28.5 L
Plt Count 251
Sodium 141
Potassium 4.8
Chloride 115 H
Carbon Dioxide 23
BUN 41 H
Creatinine 1.5 H
Glucose 96
Calcium 10.0
Vital Signs:
Vital Signs
Temp Pulse Resp BP Pulse Ox
97.9 F 80 16 128/62 97
05/22/25 11:20 05/22/25 11:20 05/22/25 11:20 05/22/25 11:20 05/22/25 11:20
I&O
05/21/25 05/22/25 05/23/25
06:59 06:59 06:59
Intake Total 2260.0 / 2260.0 1300 / 1300
Output Total 1700 / 1700 500 / 500
Balance 560.0 / 560.0 800 / 800
Physical Exam
-
General: Comfortable
Respiratory: Clear to Auscultation and Non Labored Respirations; Negative Accessory Resp Muscle Use
Cardiac: Regular Rhythm and S1/S2
GI: Soft
Musculoskeletal: No Edema
Neuro: AO x 3
Psych: Calm
Data Reviewed
-
Labs: Labs Reviewed by me
[2025-05-22 15:55] VITALS: BP 165/74
[2025-05-22] MEDS: ANCEF 5 IV (15:58)
[2025-05-22] MEDS: LASIX 40 MG IV (15:58)
[2025-05-22] MEDS: FLUSH (NSS) 3 FLUSH IV (15:59)
[2025-05-22 16:58] LABS: Glucose - Point of Care 112 mg/dl (70-99)
[2025-05-22 19:00] VITALS: BP 128/65
[2025-05-22 21:21] LABS: Glucose - Point of Care 126 mg/dl (70-99)
[2025-05-22 23:01] VITALS: BP 134/73
[2025-05-23 03:00] VITALS: BP 155/69
[2025-05-23] MEDS: ANCEF 5 IV ×2 (03:01→15:53)
[2025-05-23 03:23] LABS: Hematocrit 32.3 % (37.0-47.0); Hemoglobin 10.4 g/dL (12.0-16.0); Mean Corp Hgb Conc. 32.2 g/dL (33.0-37.0); Mean Corpuscular Volume 92.6 fL (81.0-99.0); Platelet Count 320 10^3/uL (130-400); Red Cell Dist. Width 13.2 % (11.5-14.5)
[2025-05-23 03:44] LABS: Blood Urea Nitrogen 39 mg/dl (7-17); Calcium 11.3 mg/dl (8.4-10.2); Carbon Dioxide 26 mmol/L (22-30); Chloride 109 mmol/L (98-107); Estimated Creatinine Clearance 26 ml/min; Glucose 105 mg/dl (70-99); Magnesium 1.4 mg/dl (1.6-2.3); Potassium 4.6 mmol/L (3.5-5.1); Sodium 140 mmol/L (135-145); eGFR 37.80
--- NOTE | 2025-05-23 05:23 | PTCARENOTE ---
pt had 17 beat run of vtach @ 22:08; HR trending up, BNP [id number], contacted [facility] - AM labs drawn early, mag added. Care ongoing.
[2025-05-23 05:59] VITALS: BMI 22.5
[2025-05-23] MEDS: MAGNESIUM SULFATE 50 IV (07:32)
[2025-05-23] MEDS: SPIRIVA RESPIMAT 2.5 MCG 2 PUFF INH (07:39)
[2025-05-23 07:40] VITALS: BP 107/73
[2025-05-23] MEDS: SYMBICORT 80/4.5 MCG INHALER 2 PUFF INH (07:40)
[2025-05-23 08:04] LABS: Glucose - Point of Care 132 mg/dl (70-99)
[2025-05-23] MEDS: CRESTOR 10 MG PO (08:22)
[2025-05-23] MEDS: NOVOLOG FLEXPEN-LOW RESISTANCE SC (08:22)
[2025-05-23] MEDS: LOW STRENGTH ASPIRIN 81 MG PO (08:22)
[2025-05-23] MEDS: ZEBETA 5 MG PO (08:22)
[2025-05-23] MEDS: HEPARIN 5000 UNITS SC (08:23)
--- NOTE | 2025-05-23 09:56 | CON.CAR ---
Addendum entered and electronically signed by Cristofer Sheldon MD 05/23/25 12:00:
I saw and examined the patient.
The DRAWER UPFITTER's note was reviewed and I agree with the note.
Comment:
80-year-old female (known to Dr. Gillis, her primary welcome center attendant), with nonobstructive CAD, NSVT s/p Medtronic biventricular ICD, hypertension, LBBB, COPD, former smoker, mitral regurgitation, and aortic root dilation who presented with
05/19/2025 with worsening weakness, lack of appetite, and abdominal discomfort. She was found to have urosepsis due to an obstructing left ureteral stone. She received antibiotics, IV fluids, and beta-martita was held. Last night she went into
atrial fibrillation and remains in it now. She is asymptomatic from that standpoint.
Physical exam: Regular rate and rhythm, no murmurs, decreased breath sounds at the bilateral lung bases, 1+ bilateral lower extremity edema to mid shins
Device interrogation shows that she is currently in atrial fibrillation, episode started 17 hours ago. OptiVol fluid index is rising.
For her new atrial fibrillation, we will start her on Eliquis 2.5 mg twice daily and switch her bisoprolol to metoprolol tartrate. We will stop her aspirin 81 mg daily. Fortunately she is rate controlled and asymptomatic. When she sees "Helen"Elis at her planned follow-up, they can discuss rhythm control if she is still in atrial fibrillation at that time. I did offer her SHELDON/DCCV but she prefers to go home and readdress.
In terms of her volume status, she examines mildly volume overloaded and weight is up. She will increase Lasix to 20 mg twice daily for 3 days upon discharge and then return to 20 mg daily. She will continue to trend weights at home.
Original Note:
Consultation
Consultation Request
Date/Time Consultation Requested: 05/23/2025 08:50
Date/Time Consultation Performed: 05/23/2025 09:45
Requesting Provider: Dr. Leon
Performing Provider: KELLEN Daniels for Dr. Feldbaum
Reason for Consultation: NSVT
Medical History
-
Chief Complaint: Abnormal stress test
History of Present Illness:
Nessa Resendiz is a 80-year-old female (known to Dr. Gillis, her primary welcome center attendant), with nonobstructive CAD, NSVT s/p Medtronic biventricular ICD, hypertension, LBBB, COPD, former smoker, mitral regurgitation, and aortic root dilation who
presented with 05/19/2025 with worsening weakness, lack of appetite, and abdominal discomfort. Three weeks prior to ER evaluation she completed a course of Keflex for asymptomatic UTI found during a routine physical. She was found to be in septic
shock secondary to an obstructing left ureteral stone. She was hypotensive with leukocytosis, lactic acidosis, and an MELISSA. She is recovering and the plan is for a 14-day course of antibiotics and then stone removal with Dr. Cleaning. Her
bisoprolol was held. Cardiology was consulted for NSVT. She is feeling well without chest pain, shortness of breath, and dizziness. She is asking to be discharged.
Past Medical History
Past Medical History: Arrhythmias (NSVT [Medtronic BiV ICD 05/03/2024]), CAD (Nonobstructive), COPD, HTN, Hypercholesterolemia, Valvular Disease and Other (LBBB)
Past Surgical History: Orthopedic
Social History
Tobacco: Former Smoker
Drug: None
Living: With Family
Employment: Retired
Family History
Family History: Reviewed & Not Pertinent
Allergies / Home Medications
Allergy/AdvReac Type Severity Reaction Status Date / Time
No Known Allergies Allergy Verified 05/19/25 12:43
�Medication �Instructions �Recorded �Confirmed �Type
lisinopril 10 mg tablet 10 mg PO DAILY Blood Pressure 01/06/24 05/19/25 History
bisoprolol fumarate 5 mg tablet 5 mg PO QPM Blood Pressure 02/10/24 05/19/25 History
fluticasone fur. 100 mcg-umeclid 1 inh inhalation R DAILY 02/10/24 05/19/25 History
62.5 mcg-vilant 25 mcg Lung/Breathing Issues
inhalat.powder (Trelegy Ellipta)
aspirin 81 mg chewable tablet 81 mg PO DAILY Blood clot 02/12/24 05/19/25 Rx
(Children's Aspirin) prevention/tx #0 tabs
cholecalciferol (vitamin D3) 25 25 mcg PO DAILY Supplement #30 caps 02/12/24 05/19/25 Rx
mcg (1,000 unit) capsule (Vitamin
D3)
vit C 250 mg-vit E 90 mg-zinc 40 1 tab PO BID Supplement 04/21/24 05/19/25 History
mg-copper 1 lc-tqylsj-zzhzbn
capsule (PreserVision AREDS-2)
furosemide 20 mg tablet 20 mg PO DAILY Fluid 05/03/24 05/19/25 History
Retention/Swelling
alendronate 70 mg tablet (Fosamax) 70 mg PO FR BONE 05/19/25 05/19/25 History
rosuvastatin 10 mg tablet (Crestor) 10 mg PO DAILY High Cholesterol 05/19/25 05/19/25 History
Review of Systems
-
History Source: Patient
All other systems: Negative unless noted
Constitutional: No Symptoms
EENT: No Symptoms
Respiratory: No Symptoms
Cardiac: No Symptoms
Abdomen/GI: No Symptoms
: No Symptoms
Musculoskeletal: No Symptoms
Skin: No Symptoms
Neurological: No Symptoms
Endocrine: No Symptoms
Hematologic/Lymphatic: No Symptoms
Physical Exam
Vital Signs
Temp Pulse Resp BP Pulse Ox
98.1 F 123 16 116/66 96
05/23/25 07:40 05/23/25 08:22 05/23/25 07:45 05/23/25 08:22 05/23/25 07:45
Lab Results
05/23/25 02:50
05/23/25 02:50
Oup-F-Kqxrbqlynne Pept 30403 pg/ml 05/22/25 04:02
Impression / Plan
-
I/P: 80F with with nonobstructive CAD, NSVT s/p Medtronic biventricular ICD, hypertension, LBBB, COPD, former smoker, mitral regurgitation, and aortic root dilation presented with septic shock in the setting of obstructive ureteral stone.
Cardiology consulted for NSVT.
Primary welcome center attendant: Dr. Gillis
Atrial flutter, typical - paroxysmal
- Stop bisoprolol, start metoprolol tartrate
- Oral Anticoagulation: Start apixaban 2.5mg BID (age 80, weight < 60kg)
- [id number]: score at least 4 (HTN, age 75 or more, female gender)
Shortness of breath
- She does not appear to be in acute/decompensated HF
- Her furosemide 20mg was held and she received fluid resuscitation ( > 3 L)
- Elevated proBNP but she had an MELISSA
- Improved s/p furosemide yesterday
- Increase home dose to BID for 3 days then back to daily dosing
NSVT
- None seen on telemetry
- Medtronic BiV ICD implanted, will interrogate
Septic shock, resolving
- In the setting of left obstructing ureteral stones
- Stone removal in 7 to [address] Cleaning per urology
MELISSA on CKD stage II, slowly improving
CAD, nonobstructive, stable without chest pain
Mitral regurgitation, mild to moderate
Aortic regurgitation, moderate
Aortic root dilation, moderate for BSA, ascending aorta 4.1 cm
LBBB, chronic
Hypercholesterolemia, continue rosuvastatin 10 mg
Hyperparathyroidism with hypercalcemia, managed by Dr. Choudhury
COPD, chronic, stable
Data Reviewed
-
EKG: Report Reviewed by me
Medical Tests (Nuc Med, Echo etc): Report Reviewed by me
Labs: Labs Reviewed by me
Old Records: Reviewed
--- NOTE | 2025-05-23 10:08 | PTCARENOTE ---
Per night RN, patient had a run of Vtach which was reported to the house provider overnight. When received the patient, HR was in the 130s-140s. Dr. Leon made aware. Manual BP was 116/66. Patient was receiving a magnesium rider. Dr. Leon made
aware that patient has not been receiving her home beta martita. Zebeta 5 mg po ordered and given. EKG ordered and done. Cardiology consult ordered. Currently patients HR is 98 on tele monitor.
--- NOTE | 2025-05-23 11:00 | W.PN.HOSP.TC ---
Today's Communication/Plan
-
Replete magnesium
Restart beta-martita
Continue with IV diuresis
Cardiology consult
Assessment / Plan
Assessment / Plan
78F Former smoker, HX LBBB s/p BiVentricular ICD placement( Medtronic 05/03/24) for HX VT after stress test, HX coronary artery calcification, HTN, , COPD p/w progressively worsening weakness, lack of appetite, and abdominal discomfort. Found to
have Septic shock 2/2 obstructing Lt ureteral stone.
Septic shock 2/2 obstructing Lt ureteral stone
Taken emergently to the OR by urology. s/p cysto, stone dislodgement, stenting.
Improving WCC 18.5 --> 8.8 , LA 3.1 --> 1.9. Cr. 2.5--> 1.8>1.5
- UCx EColi and BCx neg
- switch to Cefazolin. Discontinue vancomycin.
- Off of Levophed.
Shortness of breath-secondary to acute diastolic CHF decompensation from sepsis and fluid overload
Her weight has gone up by 4 pounds. BNP is significantly elevated
Denies prior history of heart failure but takes Lasix.
Good response to IV Lasix. She is asymptomatic. On room air. Chest few basilar crackles. Continue with diuresis for now.
NEW arrhythmia suspect atrial flutter. Doubt nonsustained V. tach.
Patient has pacer on defib in place. Will interrogate that. Replete magnesium. Consult cardiology. Follow on telemetry.
Restarted beta-martita this morning.
Hypomagnesemia-replete
history of hyper parathyroidism
Last parathyroid scan this year showed left-sided parathyroid adenoma
not hypercalcemic on admission. I see increase in calcium which could be secondary to dialysis. Advised check next week.
She follows with land checker locally on Dr. Sergo [place] - no surgery planned yet
h/o Benign HTN
- Hold bisoprolol, diltiazem, ACEI due to septic shock
s/p Bi- Ventricular ICD placement( Medtronic 05/03/24)
HX LBBB
HX Ventricular tachycardia.
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
Coronary artery calcification on CT
-Chronic, stable.
- rosuvastatin to 20 mg.
COPD HX
-Stable, not in exacerbation.
-Continue Trelegy.
-Follow up with pulmonary in the outpatient setting.
DVT ppx
hep sc q8
Discussed with daughterS at bedside this morning
Discussed with RN
Total time spent on today's encounter was 52 minutes which included time spent in counseling the patient/family regarding diagnosis and treatment plan as listed above, goals of care, and symptom management. Case was discussed with nursing staff,
specialists, and care coordinators/case management. All labs and imaging personally reviewed by me. Remainder the time spent in detailed review of previous records, lab data, imaging, and other medical provider documentation.
Anticipated Discharge: 24 - 48 hours
Subjective/Interval History
-
Date of Service: May 23, 2025
Breathing is settling down after IV Lasix. But she had some palpitations last night.
She went into new arrhythmia-EKG today shows atrial flutter. There was concern last night about nonsustained V. tach. She has got a pacer and ICD in place.
Today she feels great and she wants to leave at any cost.
Denies any chest pain. No lightheadedness or dizziness. She says she is able to take walks on the floor this morning.
Objective Data
-
Labs:
Laboratory Results
05/23/25
02:50
WBC 14.7 H
Hgb 10.4 L
Hct 32.3 L
Plt Count 320 D
Sodium 140
Potassium 4.6
Chloride 109 H
Carbon Dioxide 26
BUN 39 H
Creatinine 1.4 H
Glucose 105 H
Calcium 11.3 H
Vital Signs:
Vital Signs
Temp Pulse Resp BP Pulse Ox
98.1 F 123 16 116/66 96
05/23/25 07:40 05/23/25 08:22 05/23/25 07:45 05/23/25 08:22 05/23/25 07:45
I&O
05/22/25 05/23/25 05/24/25
06:59 06:59 06:59
Intake Total 1300 / 1300 530 / 530
Output Total 500 / 500
Balance 800 / 800 530 / 530
Physical Exam
-
General: Comfortable
Respiratory: Crackles (Few bibasilar crackles) and Non Labored Respirations; Negative Wheezes or Accessory Resp Muscle Use
Cardiac: S1/S2 and Irregular Rhythm; Negative Tachycardic
GI: Soft
Musculoskeletal: No Edema
Neuro: AO x 3
Psych: Calm; Negative Confused or Agitated
Data Reviewed
-
Labs: Labs Reviewed by me
[2025-05-23 11:10] VITALS: BP 110/93
[2025-05-23] MEDS: LASIX IV (11:59)
[2025-05-23] MEDS: LASIX 20 MG IV (12:07)
[2025-05-23] MEDS: ELIQUIS 2.5 MG PO (12:53)
[2025-05-23 15:32] VITALS: BP 113/70
--- NOTE | 2025-05-23 15:53 | CM ---
CM following re: discharge planning.
Reviewed pt's chart, met with pt.
Discharge order noted. Pt is are, expressed her agreement and pt stated her daughter will transport home. IMM reviewed, placed on chart, pt has a copy.
Pt stated she wants home care services and MD put the consult for [facility] services. pt preferred [facility]. A referral to [facility] made.
Please fax discharge instructions to [facility] at [phone]
D/C plan: home with [facility] and family support. Daughter to transport.
--- NOTE | 2025-05-23 16:05 | W.DCSUMMARY ---
Discharge Summary
Discharge Data
Date of Admission: 05/19/25
Date of Discharge: 05/23/25
-
Pending Results: No
Hospital Course
Primary diagnosis:
Septic shock secondary to obstructing left ureteral stone status post left ureteral stenting
Acute diastolic heart failure
New onset of atrial fibrillation
Acute kidney injury
Secondary diagnosis:
Hyperparathyroidism await surgical evaluation
Benign hypertension
History of biventricular ICD
History of ventricular tachycardia
History of progressive high degree conduction disease with second-degree AV block and left bundle branch block
History of chronic obstructive pulmonary disease
Hospital course:
Patient presented with weakness, lack of appetite and vague abdominal discomfort and discovered to have obstructing left ureteral stone along with septic shock. She had an emergent cystoscopy, stone dislodgment and stent placement. She needed
brief vasopressor support with Levophed. She had MELISSA with creatinine of 2.5 which improved to 1.4 at the time of discharge. Baseline creatinine 1.0. She was not bacteremic but she had E. coli in the urine. After sensitivities available she was
switched to oral Keflex for 1 more week.
Later in the admission she started become short of breath and was in acute diastolic CHF decompensation. It is probably combination of sepsis, fluids and inability to use her Lasix due to hypotension. She was put on IV diuresis with resolution of
her shortness of breath. During that episode she also had palpitation no no send new onset of atrial fibrillation which was rate controlled with a beta-martita. She was seen by extension course counselor who recommended switching her bisoprolol to metoprolol,
started on renal dose of Eliquis for stroke prophylaxis and to use Lasix at a higher dose for the next 3 days and get back to 20 mg daily which is her home dose.
Aspirin seems to be for primary prophylaxis which is discontinued with initiation of Eliquis.
She has a history of hyperparathyroidism came in with okay calcium levels but calcium went up to 1.3 prior to discharge. Suspect some likely secondary to diuresis. Advised to get repeat BMP next week.
Total time of discharge 32 min.
Consultants on board:
Urology-Dr. Dae Cleaning
Cardiology-Dr. Dereje Sheldon
Discharge Plan
-
Patient Disposition: Home with Home Care
Discharge Diagnosis/Procedures: Septic shock secondary to obstructing left ureteral stone; E. coli in the urine; acute diastolic CHF decompensation; new onset of atrial fibrillation
Diet: Diabetic, Carb Controlled
Activity: As tolerated
Driving Restrictions: As prior to admission
Bathing Restrictions: None
Blood Work: BMP blood work in one week to follow on Calcium -arrange through your PCP
Other Services: VN
Specialty Instructions: Weigh Daily- Call MD for wt gain/loss 3 lbs overnight/5 lbs in 1 week
Referrals:
Quita Lopez MD [Family Provider, Family Practice] - in less than 1 week
Dae Cleaning MD [Active, Urology]
Referral Note: call office to schedule 'pre-op' visit
Frandy Sullivan MD [Active, Pulmonary Medicine] - in four to six weeks
Connor Gillis MD [Active, Cardiology] - 06/20/25 1:20 pm
Prescriptions:
New
cephalexin 500 mg capsule
500 mg PO TID 7 Days Qty: 21 0RF
Eliquis 2.5 mg Tablet
2.5 mg PO BID Qty: 60 0RF
metoprolol tartrate 25 mg Tablet
25 mg PO BID Qty: 60 0RF
budesonide-formoterol [Symbicort] 80-4.5 mcg/actuation Hfa Aerosol Inhaler
2 puff inhalation R BID Qty: 10.2 0RF
Continued
Trelegy Ellipta 100-62.5-25 mcg Blister With Device
1 inh INHALATION R DAILY
cholecalciferol (vitamin D3) [Vitamin D3] 25 mcg (1,000 unit) capsule
25 mcg PO DAILY Qty: 30 0RF
PreserVision AREDS-2 250-90-40-1 mg Capsule
1 tab PO BID
alendronate [Fosamax] 70 mg Tablet
70 mg PO FR
rosuvastatin [Crestor] 10 mg Tablet
10 mg PO DAILY
Changed
furosemide 20 mg Tablet
20 mg PO BID Qty: 0 0RF
Rx Instructions:
BID for 3 days and daily after
Discontinued
lisinopril 10 mg Tablet
10 mg PO DAILY
bisoprolol fumarate 5 mg Tablet
5 mg PO QPM
aspirin [Children's Aspirin] 81 mg Tablet,Chewable
81 mg PO DAILY Qty: 0 0RF
Discharge Orders:
Discharge Patient (As Directed); Ordered 05/23/25
Ordered By: Juanito Leon
Discharge Date and Time
Print Language: KYRGYZ
[2025-05-23 16:13] VITALS: BP 153/83; PULSE 105; O2SAT 96
--- NOTE | 2025-05-23 16:29 | VNURNOTE ---
Home Health Liaison met with patient and 2 daughters at bedside to discuss [facility] nurse/therapy, visits, schedule and homebound status. Patient is agreeable and understands that visits at home will be 2-3 x per week to assess and teach medical
management.
Patient is aware that [facility] will contact them for start of care in 1-2 days after discharge from . Provided contact number for [facility].
[facility] referral completed in Care Port.
== END 2025-05-23 16:56 | disposition home health service (06) | DRG 853 ==
LOC: 2 SOUTH 18:29
PROVIDERS: Emergency Medicine; Internal Medicine; Nurse Practitioner Primary Care; Physician Assistant; Registered Nurse; ADMITTING PHYSICIAN Internal Medicine; ATTENDING PHYSICIAN Internal Medicine; CONSULT PHYSICIAN Internal Medicine; CONSULT PHYSICIAN Specialist; CONSULT PHYSICIAN Student in an Organized Health Care Education/Training Program; EMERGENCY PHYSICIAN Student in an Organized Health Care Education/Training Program; FAMILY PHYSICIAN Family Medicine
PROC: 0T778DZ Dilation of Left Ureter with Intraluminal Device, Via Natural or Artificial Opening Endoscopic (ICD-10-PCS; 2025-05-19)
DX: A41.51 Sepsis due to Escherichia coli [E. coli] (principal); I50.31 Acute diastolic (congestive) heart failure; R65.21 Severe sepsis with septic shock; E87.20 Acidosis, unspecified; N17.9 Acute kidney failure, unspecified; N13.6 Pyonephrosis; E87.1 Hypo-osmolality and hyponatremia; E78.00 Pure hypercholesterolemia, unspecified; I11.0 Hypertensive heart disease with heart failure; I25.10 Atherosclerotic heart disease of native coronary artery without angina pectoris; I48.91 Unspecified atrial fibrillation; E21.3 Hyperparathyroidism, unspecified; I44.7 Left bundle-branch block, unspecified; I35.1 Nonrheumatic aortic (valve) insufficiency; J44.9 Chronic obstructive pulmonary disease, unspecified; Z79.01 Long term (current) use of anticoagulants; Z79.51 Long term (current) use of inhaled steroids; Z79.83 Long term (current) use of bisphosphonates; Z79.899 Other long term (current) drug therapy; Z95.810 Presence of automatic (implantable) cardiac defibrillator; Z87.891 Personal history of nicotine dependence; Z11.52 Encounter for screening for COVID-19
CPT/HCPCS: 71045; 71046; 74018; 74176; 76000; 80048; 80053; 80202; 81003; 81015; 82962; 83605; 83690; 83735; 83880; 84100; 85025; 85027; 85610; 85730; 87040; 87077; 87086; 87186; 87811; 93005; 94640; 96365; 96367; 97162; 99291

== ENCOUNTER 2025-05-27 04:21 | Inpatient (IN) | payer MEDICARE, BC, SELFPAY ==
[2025-05-26 19:09] VITALS: BP 144/74
[2025-05-26 19:45] LABS: Hematocrit 33.4 % (37.0-47.0); Hemoglobin 10.7 g/dL (12.0-16.0); Mean Corp Hgb Conc. 32.0 g/dL (33.0-37.0); Mean Corpuscular Volume 93.3 fL (81.0-99.0); Platelet Count 409 10^3/uL (130-400); Red Cell Dist. Width 13.5 % (11.5-14.5)
[2025-05-26 19:49] LABS: Urine Character Clear (Clear)
[2025-05-26 19:58] LABS: ALT (SGPT) 30 U/L (0-35); AST (SGOT) 25 U/L (14-36); Albumin 4.3 g/dl (3.5-5.0); Alkaline Phosphatase 91 U/L (38-126); Blood Urea Nitrogen 37 mg/dl (7-17); Calcium 11.7 mg/dl (8.4-10.2); Carbon Dioxide 27 mmol/L (22-30); Chloride 102 mmol/L (98-107); Glucose 106 mg/dl (70-99); Nucleated Red Blood Cells % 0 %; Potassium 3.9 mmol/L (3.5-5.1); Sodium 140 mmol/L (135-145); Total Protein 7.3 g/dl (6.3-8.2); eGFR 41.31
[2025-05-26 20:26] LABS: Urine White Cell 21-25 /HPF (0-5)
[2025-05-26 21:44] VITALS: BP 141/73
--- NOTE | 2025-05-26 23:14 | ED.GENMED ---
History of Present Illness
General
Chief Complaint: Fever
Source: patient
Exam Limitations: none
Time Seen by Provider: 05/26/25 23:13
Nursing documentation reviewed up to this point in time: agreed with
History of Present Illness
History of Present Illness:
Note:
CHIEF COMPLAINT(S)
Fever and abdominal discomfort following recent stent placement.
HISTORY OF PRESENT ILLNESS
The patient is an 80-year-old female past medical history of hypertension, COPD, hyperparathyroidism, who presents with fever and abdominal discomfort following recent stent placement. The patient reports that she had an infection after the stent
placement last week but felt better after the procedure until the symptoms returned. She reports that the fever started suddenly on Friday, with her temperature reaching a high reading of 101.4�F. Additionally, she reports mild abdominal
discomfort, describing it as not outright painful but discomforting, and some shortness of breath that initially worsened but is now improving. She also notes worsening swelling in her lower legs. She has experienced nausea today but has denied
vomiting. The patient also notes increased discomfort during urination, which began soon after returning home post-procedure. She was initially symptom-free until the onset of current symptoms. The patient is currently on Lasix (furosemide) 20 mg
taken twice a day for managing fluid retention and reports following the dosage as prescribed. She notes that she is under the care of a equip tech, Sherley Gillis, and she had been diagnosed with prior to this admission. During the
examination, her white blood cell count was noted to be elevated to 30,000, which is an increase from 18,000 at the last pre-admission check. She denies chest pain, flank pain, coughing up of sputum, vomiting.
SOCIAL [employer]S AFFECTING HEALTH
Reliable family support is indicated as the patient mentions her daughter accompanying her to the facility, suggesting an adequate support system for care needs.
MEDICATIONS
- Lasix (furosemide) 20 mg twice daily.
PHYSICAL EXAM
General: Alert, no acute distress.
Skin: Warm, dry.
Head: Normocephalic, atraumatic.
Neck: Supple, trachea midline.
Eye, Ears, Nose, Mouth, and Throat: Oral mucosa moist.
Cardiovascular: Mild tachycardia noted otherwise regular rhythm, no murmurs. Normal peripheral perfusion, No edema.
Respiratory: Respirations are non-labored.
Gastrointestinal: Abdomen nondistended, diffuse lower abdominal tenderness to palpation.
Back: Normal range of motion, Normal alignment.
Musculoskeletal: Normal range of motion, normal strength.
Neurological: Alert and oriented to person, place, time, and situation, No focal neurological deficit observed.
Psychiatric: Cooperative, appropriate mood & affect.
PLAN
1. Initiate IV antibiotics promptly to treat potential infection recurrence.
2. Perform blood cultures to ensure the infection has not progressed to the bloodstream.
3. Conduct a repeat plain CT to evaluate stent placement and assess for any reocclusion.
4. Consider Lasix (furosemide) intravenously to address potential fluid retention contributing to respiratory difficulties.
5. Obtain a chest X-ray to assess for any fluid accumulation causing respiratory distress.
DIFFERENTIAL DIAGNOSIS
The Differential Diagnosis includes, in no particular order and is not limited to:
1. Urinary tract infection post stent placement
2. Pyelonephritis
3. Sepsis
4. Pneumonia
5. Congestive heart failure exacerbation
6. Abdominal pain of unknown origin
7. Acute kidney stone complications
8. Fluid overload
9. Postoperative infection
10. Electrolyte imbalance
CHART REVIEW
- Reviewed discharge summary from 05/23/2025
MDM/DISPOSITION
80-year-old female with past medical history of hypertension, COPD, CHF, hyperparathyroidism, is going to be admitted for sepsis secondary to acute diverticulitis with acute CHF as well. She presented today with abdominal pain, she was febrile at
home and she also has had increasing shortness of breath. She was discharged 05/23/2025 for urosepsis secondary to obstructing stone. Initially, we are concerned about stent reocclusion and we started Rocephin. Had E. coli noted on urine culture.
However her CT scan today revealed acute diverticulitis and there is motion artifact of breath was unable to completely rule out free air however no evidence of sharmin free air. Urinalysis is concerning for infection. Will add on Flagyl. Case
reviewed with ED attending. Colorectal made aware. Patient referred for admission.
Past History
Past History
ED Past Medical History: COPD and HTN
Social History
Tobacco: Former smoker
Alcohol: None
Phy Exam
Physical Exam
Physical Exam:
see hpi
Sepsis
Sepsis Screening
Sepsis Assessment: Sepsis
Sepsis Screen
Sepsis Screen: Sepsis
Date: 05/27/25
Time: 07:19
Course
Orders/Labs/Results
Orders:
Orders
05/26/25 19:14
Cardiac Monitoring- Treatment ONCE
IV Insert/Care/Rem.- Treatment PRN
O2 Therapy [RESP] Urgent
Titrate/Wean O2 to maintain O2 sat greater than (%): 93
Special Instructions: TO MAINTAIN CONTINUOUS O2 SATS > OR = 93%
Pulse Ox/cont/shift [RESP] Urgent
Quantity: 1
Special Instructions: CONTINUOUS
05/26/25 19:25
Complete Blood Count/With Diff Urgent
Comprehensive Metabolic Panel Urgent
Lactic Acid Q4H
Comment: ON ICE, CANCEL 2ND ORDER IF FIRST LACTIC ACID LEVEL <2
Blood Culture Q20M
NAUN Source: Blood/Venous
Specimen Description:
Comment: Urgent from separate sites. If patient screens positive for possible sepsis
05/26/25 19:33
Urinalysis Reflex To Culture Urgent
Date Specimen was Collected: 05/26/25
Time Specimen was Collected: 19:14
Urine Microscopic Reflex Cult Urgent
Urine Culture Urgent
NAUN Source: U
Specimen Description:
Date Specimen was Collected: 05/26/25
Time Specimen was Collected: 19:14
05/26/25 23:27
EKG- Treatment ONCE
CefTRIAXone [Rocephin] 2,000 mg IV NOW STA
05/26/25 23:33
Sterile Water [Sterile Water For Injection] 20 ml .ROUTE .STK-MED
05/26/25 23:46
0.9% Sodium Chloride 250 ml [Nss] 250 ml IV BOLUS
05/26/25 23:49
NT-proBNP Urgent
Troponin I Urgent
Blood Culture Q20M
NAUN Source: Blood/Venous
Specimen Description:
Comment: Urgent from separate sites. If patient screens positive for possible sepsis
05/27/25
CT Abd/pel Without Iv Or Oral Urgent
Reason For Exam: right sided abdominal pain
05/27/25 00:05
CR Chest - 2 Views Urgent
Reason For Exam: shortness of breath
05/27/25 00:55
MetroNIDAZOLE 500 MG/100 ML [Flagyl 500 mg] 100 ml IV NOW
05/27/25 04:02
Admit/Transfer Patient As Directed
Co-Sign Provider:
Level of Care: Inpatient admission
Assign to:: Telemetry
Physician / Group: Davion
Diagnosis: Diverticulitis, Sepsis
Reason for Telemetry: Arrhythmia
Date to Stop Telemetry: 05/30/25
Time to Stop Telemetry: 11:00
Reason for Hospitalization: Diverticulitis, Sepsis
Expected length of stay greater than two midnights?: Yes
ELOS- Estimated Length of Stay in days: 3
I certify the patient meets the requirements for IP care: Yes
CDIFF [C difficile Antigen & Toxins] Urgent
NAUN Source: Feces/Stool
Specimen Description:
Stool Culture Urgent
NAUN Source: Feces/Stool
Specimen Description:
05/27/25 04:03
PRN Pain Medication Management As Directed
May give lesser potent ordered pain med per pt: Yes
preference::
Protocol:: Medication orders for pain may be administered in a
manner that supports deferring to patient preference
when the pt is:
- Requesting an ordered lesser potent pain medication.
Least to most potent pain medications are defined
as: acetaminophen < NSAID < tramadol < opioids
(morphine, oxycodone, hydromorphone).
- Requesting a lesser dose of the same medication IF
ORDERED.
- Requesting a less intrusive route of administration
if both routes are prescribed by the provider (PO <
IV).
05/27/25 04:04
Code Status As Directed
Resuscitation Status: Full Code
05/27/25 05:27
Acetaminophen [Tylenol] 650 mg PO Q4HPRN PRN
Albuterol Nebs [Ventolin Nebules] 2.5 mg INH R Q4HPRN PRN
HYDROmorphone [Dilaudid] 0.5 mg IV Q4HPRN PRN
Ondansetron Injectable [Zofran] 4 mg IV Q6HPRN PRN
05/27/25 05:27
ColoRectal Surgery Consult Routine
Consulting Provider: Flaquito Sprague
Was physician already notified: Yes
Reason for consult: Diverticulitis, Sepsis
Activity As Directed
Activity Level: Ambulate
With Assistance
Bladder Scan As Directed
Follow Bladder Retention/Intermittent Cath Algorithm?: Yes
PRN if no void in __ hours: 6
Frequency: Per Retention Algorithm
If Bladder Scan Result >: 400
then:: Straight cath
I/O [Intake/ Output] As Directed
Frequency: Per unit guidelines
Pneumatic Compression Sleeves As Directed
Type: Knee high
Straight Cath As Directed
Frequency: Per Retention Algorithm
Additional Instructions: straight cath as needed per acute urinary retention algorithm for 24 hrs
Additional Instructions: for bladder scan greater than 400 mL
Vital Signs As Directed
Frequency: Per unit guidelines
Weight As Directed
Frequency: Daily
Oxygen Therapy [O2 Therapy] [RESP] Routine
Titrate/Wean O2 to maintain O2 sat greater than (%): 94
DX Deep Vein Thrombosis Video Routine
05/27/25 Breakfast
NPO
Allow oral meds: Yes
Allow clear liquids: Sips of Clears
05/27/25 06:02
Basic Metabolic Panel IN AM
Complete Blood Count/No Diff IN AM
Ferritin Routine
Intact PTH Includes Calcium Routine
Iron Routine
Magnesium IN AM
Phosphorus IN AM
Total Iron Binding Routine
Troponin I Q6H
05/27/25 08:00
Budesonide/Formoterol 80/4.5 [Symbicort 80/4.5 Mcg Inhaler] 2 puff INH R BID
Metoprolol [Lopressor] 25 mg PO BID
Rosuvastatin Calcium [Crestor] 10 mg PO DAILY
Vit C/Vit E/Lutein/Min/Creston-3 [Ocuvite Softgel] 1 cap PO BID
05/27/25 11:27
Troponin I Q6H
05/27/25 12:00
MetroNIDAZOLE 500 MG/100 ML [Flagyl 500 mg] 100 ml IV Q12H
05/27/25 17:27
Troponin I Q6H
05/28/25 00:00
CefTRIAXone [Rocephin] 2,000 mg IV Q24H
05/30/25 11:00
DC Protocol for Telemetry ONCE
Abnormal Lab Results
05/26/25 05/26/25 05/26/25
19:25 19:33 23:49
WBC 37.8 H 10^3/uL
(4.8-10.8)
RBC 3.58 L 10^6/uL
(4.20-5.40)
Hgb 10.7 L g/dL
(12.0-16.0)
Hct 33.4 L %
(37.0-47.0)
MCHC 32.0 L g/dL
(33.0-37.0)
Plt Count 409 H D 10^3/uL
(130-400)
Abs Immat Gran (auto) 1.2 H 10^3/uL
(0-0.05)
Absolute Neuts (auto) 33.0 H 10^3/uL
(1.4-6.5)
Absolute Monos (auto) 1.7 H 10^3/uL
(0.1-0.6)
Immature Gran % 3.1 H %
(0-0.5)
Neutrophils % 87.2 H %
(42.2-75.2)
Lymphocytes % 4.8 L %
(20.5-51.1)
BUN 37 H mg/dl
(7-17)
Creatinine 1.3 H mg/dL
(0.6-1.0)
Glucose 106 H mg/dl
(70-99)
Calcium 11.7 H mg/dl
(8.4-10.2)
Troponin I 0.165 H* ng/ml
Ur Occult Blood Reflex 4+ A
(Negative)
Leukocyte Esterase Rfl 2+ A
(Negative)
Urine RBC 11-15 A /HPF
(0-2)
Urine WBC (Reflex) 21-25 A /HPF
(0-5)
Urine Bacteria (Reflex) Few A
(Negative)
Urine Albumin (Reflex) 2+ A
(Neg - Trace)
05/26/25 19:25
05/26/25 19:25
Vital Signs
Initial and Last Documented VS:
Initial Vital Signs
Temp Pulse Resp BP Pulse Ox
98.9 F 108 28 144/74 94
05/26/25 19:09 05/26/25 19:09 05/26/25 19:09 05/26/25 19:09 05/26/25 19:09
Last Documented Vital Signs
Temp Pulse Resp BP Pulse Ox
99.3 F 92 18 123/63 93
05/27/25 05:41 05/27/25 05:41 05/27/25 05:41 05/27/25 05:41 05/27/25 06:10
*Pulse Oximetry
SaO2: 95
Oxygen Mode of Delivery: Room air
Patient hypoxic: no
*Critical Care Note
Total Time (30-74mins, 75-104mins- exclusive of procedures): Not Applicable
ED Attending Note
-
Portions of this chart may have been created with voice recognition software.� Occasional wrong word or��sound alike� substitutions may have occurred due to the inherent limitations of voice recognition software.
Discharge Plan
Departure
Patient Disposition: Admit
Date of Disposition: 05/27/25
Time of Disposition: 01:20
Admit to: Med/Surg
Presentation/result/management discussed w/ accepting MD/DO: Hospitalist
Patient with high blood pressure during this ER visit?: Yes
Condition: Fair
Discharge Problem:
Acute diverticulitis, Sepsis, Congestive heart failure
Interventions
Interventions:
*Risk Screen - Suicide Last Done: 05/26/25 19:09
*General Assessment Last Done: 05/26/25 19:09
*Neglect/Abuse Screening Last Done: 05/26/25 19:09
*ED- Fall Risk Assessment Last Done: 05/26/25 19:09
*ED COVID-19 Vaccine History Last Done: 05/27/25 05:44
*Nursing Disposition Last Done: 05/27/25 05:35
ED-Female Genitourinary Assessment Last Done: 05/27/25 00:29
ED- Neurological Assessment Last Done: 05/27/25 00:29
ED-Skin Assessment Last Done: 05/27/25 00:29
Discharge Date and Time
Discharge Date/Time: 05/27/25 05:36
[2025-05-26 23:38] VITALS: BMI 23.5
[2025-05-26 23:48] VITALS: BP 105/48
[2025-05-26] MEDS: ROCEPHIN 2000 MG IV (23:57)
[2025-05-26] MEDS: NSS 250 IV (23:58)
[2025-05-27] VITALS (11 sets, daily range): BP systolic 98–123; BP diastolic 45–64; BMI 21.6
[2025-05-27 00:29] LABS: Troponin I 0.165 ng/ml
[2025-05-27] MEDS: FLAGYL 500 MG 100 IV ×3 (01:21→23:07)
--- NOTE | 2025-05-27 04:08 | HPS.HSE ---
Family Physician
-
Family Physician: Quita Lopez
Chief Complaint
-
Fever
History of Present Illness
Patient is an 80y F with PMH significant for COPD, hyperparathyroidism and recent admission for L ureteral stone with UTI / sepsis who presents to ED complaining of fever at home today. Patient denies any other complaints at present including
cough, dyspnea, chest pain, N/V/D, etc. She reports general malaise / fatigue at home today.
Evaluation in the ED included CT scan which showed evidence of sigmoid diverticulitis. No prior h/o diverticular disease per patient.
Medical History
Past Medical History
Past Medical History: Reports Other
Additional Past Medical History:
COPD
Hypertension
Paroxysmal Atrial fibrillation
Mitral regurgitation
Left bundle branch block
Cataracts
Nephrolithiasis
Past Surgical History: Reports Other
Additional Past Surgical History:
Left Ureteral Stent
Left elbow fracture repair
Left eye cataract surgery
Social History
Tobacco: Former Smoker
Alcohol: Occasional
Drug: None
Family History
Family History: Not pertinent
Allergies / Home Medications
Allergies reflects when Allergies were last updated in [facility].
Home Medications with original date entered in [facility]
Allergy/Medication List:
Allergies
Allergy/AdvReac Type Severity Reaction Status Date / Time
No Known Allergies Allergy Verified 05/26/25 19:09
Home Medications
fluticasone fur. 100 mcg-umeclid 62.5 mcg-vilant 25 mcg inhalat.powder (Trelegy Ellipta) 1 inh inhalation R DAILY Lung/Breathing Issues 02/10/24
cholecalciferol (vitamin D3) 25 mcg (1,000 unit) capsule (Vitamin D3) 25 mcg PO DAILY Supplement #30 caps 02/12/24
vit C 250 mg-vit E 90 mg-zinc 40 mg-copper 1 [id number] capsule (PreserVision AREDS-2) 1 tab PO BID Supplement 04/21/24
alendronate 70 mg tablet (Fosamax) 70 mg PO FR BONE 05/19/25
rosuvastatin 10 mg tablet (Crestor) 10 mg PO DAILY High Cholesterol 05/19/25
apixaban 2.5 mg tablet (Eliquis) 2.5 mg PO BID #60 tabs 05/23/25
furosemide 20 mg tablet 20 mg PO BID Fluid Retention/Swelling #0 tabs 05/23/25
metoprolol tartrate 25 mg tablet 25 mg PO BID #60 tabs 05/23/25
Review of Systems
-
History Source: Patient
A 12 point ROS was completed and negative except as noted: Yes
Constitutional: Reports Fever, Fatigue and Chills
EENT: Denies Sore Throat
Respiratory: Denies Cough or Trouble Breathing
Cardiac: Denies Chest Pain or Palpitations
Abdomen/GI: Denies Abdominal Pain, Nausea, Vomiting or Diarrhea
: Denies Dysuria, Frequency or Flank Pain
Musculoskeletal: Denies Joint Pain or Edema
Neurological: Denies Dizzy or Headache
Physical Exam
Vital Signs
Vital Signs
Temp Pulse Resp BP Pulse Ox
99.2 F 86 30 105/48 93
05/26/25 21:44 05/26/25 23:48 05/26/25 23:51 05/26/25 23:48 05/26/25 23:51
Physical Exam
General: Other (80y F in no acute distress.)
HEENT: Moist mucous membranes and PERRLA
Respiratory: Clear; No Wheezes, Rales or Rhonchi
Cardiac: S1/S2, Regular Rhythm and Murmur (II/ TIM)
GI: Soft, Non Distended, Normal Bowel Sounds and Other (Mild LLQ tenderness without rebound / guarding.)
Musculoskeletal: No Clubbing, No Cyanosis and Other (1+ edema b/l ankles.)
Neuro: AO x 3
Laboratory Results
-
05/26/25 19:25
05/26/25 19:25
Laboratory Results
Lactic Acid Cancelled 05/26/25 23:15
Total Bilirubin 0.8 mg/dl (0.2-1.3) 05/26/25 19:25
AST 25 U/L (14-36) 05/26/25 19:25
ALT 30 U/L (0-35) 05/26/25 19:25
Alkaline Phosphatase 91 U/L (38-126) 05/26/25 19:25
Troponin I 0.165 ng/ml H* 05/26/25 23:49
Impression/Plan
-
A/P: Patient is an 80y F with PMH significant for A-Fib, COPD and hypertension who presents to ED complaining of fever at home.
Acute Sigmoid Diverticulitis
Sepsis secondary to the above
- Admit for further evaluation and treatment.
- Patient presents with tachycardia, tachypnea and leukocytosis. CT scan shows stranding c/w acute sigmoid diverticulitis.
- Continue IV abx with ceftriaxone and Flagyl.
- Colorectal Surgery evaluation.
- NPO. Pain control if needed (no complaints at present).
- Follow for any new / worsening symptoms.
- Follow fever curve and monitor for improvement in leukocytosis.
Recent Left Ureteral Stone
MELISSA
- Stable. L ureteral stent in good position without hydro. Non-obstructing stone seen on CT adjacent to stent.
- Follow-up with Urology as planned.
- SCr stable / slowly improving from prior peak. Baseline 1.0.
- Follow for continued changes.
Paroxysmal Atrial Fibrillation
History of VT / high-grade heart block
- Stable. Continue metoprolol and Eliquis.
- s/p BiV ICD.
Normocytic Anemia
- Unclear etiology - ? mild blood loss anemia due to stone, stent, surgery, etc.
- Stable / slowly improving from prior hospital stay.
- Check iron studies, etc.
Hyperparathyroidism
Hypercalcemia
- Ca levels increasing from last admission.
- Not on any chronic medication or other management for known L hyperparathyroid adenoma.
- Holding Lasix and IVFs for now with sepsis.
- Follow Ca levels and consider IVFs + Lasix and / or pamidronate or similar if needed.
Benign Hypertension
- Stable. Continue metoprolol with holding parameters.
COPD without Acute Exacerbation
- CXR unremarkable. No complaint of cough, dyspnea, etc.
- Continue inhaler regimen. Albuterol PRN.
Abnormal Troponin
- No complaints of chest pain, dyspnea, etc. Unclear rationale for testing.
- EKG is paced.
- Follow troponin to peak and monitor for any symptoms that might be indicative of CAD / VT.
DVT Prophylaxis: On Eliquis
Code Status: Full
[2025-05-27 06:44] LABS: Hematocrit 28.2 % (37.0-47.0); Hemoglobin 9.3 g/dL (12.0-16.0); Mean Corp Hgb Conc. 33.0 g/dL (33.0-37.0); Mean Corpuscular Volume 91.3 fL (81.0-99.0); Platelet Count 318 10^3/uL (130-400); Red Cell Dist. Width 13.4 % (11.5-14.5)
[2025-05-27 06:48] LABS: Blood Urea Nitrogen 29 mg/dl (7-17); Calcium 10.0 mg/dl (8.4-10.2); Carbon Dioxide 26 mmol/L (22-30); Chloride 102 mmol/L (98-107); Estimated Creatinine Clearance 37 ml/min; Glucose 97 mg/dl (70-99); Iron 27 ug/dl (37-170); Magnesium 1.5 mg/dl (1.6-2.3); Potassium 3.6 mmol/L (3.5-5.1); Sodium 136 mmol/L (135-145); eGFR 56.60
[2025-05-27 06:58] LABS: Troponin I 0.158 ng/ml
[2025-05-27 07:00] LABS: Total Iron Binding Capacity 272 ug/dl (265-497)
--- NOTE | 2025-05-27 07:05 | W.PN.UPDATE ---
Update Note
Progress Note Update
Shingle rash/blister on the lower back/ buttocks, patient not sure when it started. Valacyclovir started x 7 days.
[2025-05-27 07:18] LABS: Ferritin 321.0 ng/ml (11.1-264.0)
--- NOTE | 2025-05-27 07:20 | PTCARENOTE ---
received pt from ED at 0600. pt ambulated from stretcher to bed. A&Ox3 and oriented to room. No current complaints, call love within reach.
--- NOTE | 2025-05-27 08:05 | VNURNOTE ---
Chart reviewed. Patient is current with [facility]. Will continue to follow hospital course and DC plans.
--- NOTE | 2025-05-27 08:49 | CON.CRS ---
Consultation
-
Date/Time Consultation Requested: 05/27/2025, 5:52
Date/Time Consultation Performed: 05/27/2025, 8:30
Requesting Provider: Romulo Ricardo DO
Performing Provider: Flaquito Sprague MD
Reason for Consultation: diverticultis
Medical History
-
Chief Complaint: Fever
History of Present Illness:
80-year-old female with recent admission of a left ureteral stone with UTI and sepsis status post left ureteral stent presents to [facility] complaining of a fever at home. She states she normally runs around 98.5 and she was in the higher
99's. She also was fatigued. Because of this she went to the emergency department. CT of the abdomen and pelvis shows acute sigmoid diverticulitis in the middle and left pelvis with inflammatory fat stranding about the thick-walled sigmoid colon
in the setting of diverticulosis. No free air and no bowel obstruction. The patient states she has never had diverticulitis. She has mild left lower quadrant abdominal pain. She states that she generally has a bowel movement every day and her
last bowel movement was yesterday. It was nonbloody. She denies nausea or vomiting. She does have an appetite. At this time she has no complaints. Denies any previous abdominal surgeries. She has never had a colonoscopy.
In the ER her WBC was 37.8 and is 31.3 today. A CRP is pending. She has remained afebrile and her vital signs have been normal. She is on Eliquis at home for atrial fibrillation. This has been held. She was started on Rocephin and Flagyl on
admission. There was concern of a shingles-like rash/blister on her lower back and buttocks and valacyclovir was started.
Past Medical History
Past Medical History: Other (COPD, Hypertension, Paroxysmal Atrial fibrillation, Mitral regurgitation, Left bundle branch block, Cataracts Nephrolithiasis)
Past Surgical History: Other (Left Ureteral Stent, Left elbow fracture, repair Left eye, cataract surgery)
Social History
Tobacco: Former Smoker
Alcohol: Occasional
Drug: None
Family History
Family History: Reviewed & Not Pertinent
Allergies / Home Medications
Allergy/AdvReac Type Severity Reaction Status Date / Time
No Known Allergies Allergy Verified 05/26/25 19:09
�Medication �Instructions �Recorded �Confirmed �Type
fluticasone fur. 100 mcg-umeclid 1 inh inhalation R DAILY 02/10/24 05/27/25 History
62.5 mcg-vilant 25 mcg Lung/Breathing Issues
inhalat.powder (Trelegy Ellipta)
cholecalciferol (vitamin D3) 25 25 mcg PO DAILY Supplement #30 caps 02/12/24 05/27/25 Rx
mcg (1,000 unit) capsule (Vitamin
D3)
vit C 250 mg-vit E 90 mg-zinc 40 1 tab PO BID Supplement 04/21/24 05/27/25 History
mg-copper 1 [id number]
capsule (PreserVision AREDS-2)
alendronate 70 mg tablet (Fosamax) 70 mg PO FR BONE 05/19/25 05/27/25 History
rosuvastatin 10 mg tablet (Crestor) 10 mg PO DAILY High Cholesterol 05/19/25 05/27/25 History
apixaban 2.5 mg tablet (Eliquis) 2.5 mg PO BID #60 tabs 05/23/25 05/27/25 Rx
furosemide 20 mg tablet 20 mg PO BID Fluid 05/23/25 05/27/25 Rx
Retention/Swelling #0 tabs
metoprolol tartrate 25 mg tablet 25 mg PO BID #60 tabs 05/23/25 05/27/25 Rx
Review of Systems
-
A 10 point review of systems was completed, and was negative except as per HPI.
Physical Exam
Vital Signs
Temp 98.5 F 05/27/25 07:52
Pulse 92 05/27/25 07:52
Resp Rate 16 05/27/25 07:52
Blood pressure 111/59 05/27/25 07:52
SaO2 94 05/27/25 07:52
05/26/25 05/27/25 05/28/25
06:59 06:59 06:59
Actual Weight 56.155 kg
Body Mass Index (BMI) 21.6
Lab Results / Allergies
05/27/25 06:02
05/27/25 06:02
WBC 31.3 10^3/uL (4.8-10.8) H 05/27/25 06:02
Hgb 9.3 g/dL (12.0-16.0) L 05/27/25 06:02
Hct 28.2 % (37.0-47.0) L 05/27/25 06:02
Plt Count 318 10^3/uL (130-400) D 05/27/25 06:02
Abs Immat Gran (auto) 1.2 10^3/uL (0-0.05) H 05/26/25 19:25
Neutrophils % 87.2 % (42.2-75.2) H 05/26/25 19:25
Allergy/AdvReac Type Severity Reaction Status Date / Time
No Known Allergies Allergy Verified 05/26/25 19:09
Physical Exam
General: Well Developed, Well Nourished and No Apparent Distress
GI: Soft and Tender (Mild left lower quadrant)
Skin: Warm and Dry
Assessment / Plan
-
Assessment: 80-year-old female with recent left ureteral stone and urosepsis status post left ureteral stent presents to the ER with a temperature of 99 and found to have a white count of 37.8 with mild sigmoid diverticulitis on CT scan and moderate
fecal burden
Plan:
- No plans for surgery at this time
- CRP elevated 89.7. Trend.
- Continue IV antibiotics
- Will start on MiraLAX twice daily, Colace twice daily, and give 1 enema.
- Needs eventual colonoscopy
[2025-05-27 08:58] LABS: C-Reactive Protein 89.70 mg/L (0.0-10.00)
[2025-05-27] MEDS: CRESTOR 10 MG PO (09:21)
[2025-05-27] MEDS: LOPRESSOR 25 MG PO ×2 (09:21→20:33)
[2025-05-27] MEDS: OCUVITE SOFTGEL 1 CAP PO ×2 (09:55→20:34)
[2025-05-27] MEDS: MAGNESIUM SULFATE 50 IV (09:55)
--- NOTE | 2025-05-27 10:54 | WOUNDNOTE ---
WOC RN note: Dr. Jason evaluated and has a planned treatment for patient's buttocks rash. Dr. Jason stated WOC RN consult not indicated/cancel.
[2025-05-27] MEDS: SPIRIVA RESPIMAT 2.5 MCG 2 PUFF INH (11:07)
[2025-05-27] MEDS: SYMBICORT 80/4.5 MCG INHALER 2 PUFF INH ×2 (11:07→18:15)
[2025-05-27] MEDS: COLACE 100 MG PO ×2 (11:43→20:34)
[2025-05-27] MEDS: MIRALAX 17 GRAMS PO ×2 (11:43→20:33)
[2025-05-27] MEDS: FLEET PHOSPHATE ENEMA-ADULT RECTAL (11:44)
[2025-05-27 12:23] LABS: Troponin I 0.132 ng/ml
[2025-05-27] MEDS: POLYSPORIN/DOUBLE ANTIBIOTIC 1 APPLIC TOPICAL ×2 (12:37→20:34)
[2025-05-27] MEDS: FLEET PHOSPHATE ENEMA-ADULT 135 ML RECTAL (14:24)
--- NOTE | 2025-05-27 14:24 | W.PN.UPDATE ---
Update Note
Progress Note Update
Nonbillable note
1. Sigmoid diverticulitis, sepsis -antibiotic adjusted to Zosyn. CT abdomen pelvis images reviewed. Colorectal surgery evaluated. Patient started on clear liquid diet. Patient being provided stool softener/laxative as have increased stool
burden on imaging.
2. Gluteal area pustular infection -small patch of infected hair follicle. Bilateral. Initially was concerned about varicella although anatomically crossing midline and on both side of gluteal cleft. Removed further isolation measures,
discontinue Valtrex
3. Recent left ureteral stent placement/urosepsis -UA showing persistent mild hematuria/bacteriuria. No signs to suggest antibiotic failure. CT abdomen pelvis showing stent in good place and mid ureteral level stone.
[2025-05-27] MEDS: ROCEPHIN 2000 MG IV (23:06)
[2025-05-27] MEDS: STERILE WATER FOR INJECTION 20 ML IV (23:07)
[2025-05-28 03:56] VITALS: BP 115/60
[2025-05-28 06:00] VITALS: BMI 21.5
[2025-05-28 07:00] VITALS: BP 124/73
[2025-05-28] MEDS: SPIRIVA RESPIMAT 2.5 MCG 2 PUFF INH (07:27)
[2025-05-28] MEDS: SYMBICORT 80/4.5 MCG INHALER 2 PUFF INH (07:27)
[2025-05-28 08:15] LABS: Hematocrit 31.5 % (37.0-47.0); Hemoglobin 10.1 g/dL (12.0-16.0); Mean Corp Hgb Conc. 32.1 g/dL (33.0-37.0); Mean Corpuscular Volume 93.8 fL (81.0-99.0); Platelet Count 361 10^3/uL (130-400); Red Cell Dist. Width 13.4 % (11.5-14.5)
[2025-05-28 08:46] LABS: Blood Urea Nitrogen 20 mg/dl (7-17); Calcium 10.2 mg/dl (8.4-10.2); Carbon Dioxide 27 mmol/L (22-30); Chloride 100 mmol/L (98-107); Estimated Creatinine Clearance 37 ml/min; Glucose 135 mg/dl (70-99); Magnesium 2.2 mg/dl (1.6-2.3); Potassium 4.1 mmol/L (3.5-5.1); Sodium 136 mmol/L (135-145); eGFR 56.60
[2025-05-28] MEDS: LOPRESSOR 25 MG PO (08:53)
[2025-05-28] MEDS: OCUVITE SOFTGEL 1 CAP PO (08:53)
[2025-05-28] MEDS: CRESTOR 10 MG PO (08:55)
[2025-05-28] MEDS: MIRALAX 17 GRAMS PO (08:55)
[2025-05-28] MEDS: COLACE 100 MG PO (08:55)
[2025-05-28] MEDS: POLYSPORIN/DOUBLE ANTIBIOTIC 1 APPLIC TOPICAL (09:17)
[2025-05-28 11:00] VITALS: BP 113/57
[2025-05-28] MEDS: FLAGYL 500 MG IV (12:06)
--- NOTE | 2025-05-28 13:11 | W.PN.HOSP.TC ---
Today's Communication/Plan
-
d/c home
Assessment / Plan
Assessment / Plan
Acute Sigmoid Diverticulitis
Sepsis secondary to the above - improved
-Initial CT abdomen pelvis without IV contrast due to renal function, follow-up prescription for provided repeat scan in next 1 week
-Patient had appropriate response from Rocephin and Flagyl. Will change to Levaquin and Flagyl at discharge to simultaneously cover asymptomatic Pseudomonas bacteriuria
-Patient had increased stool burden and had good bowel movement with laxatives. Patient recommended to be maintained on MiraLAX daily at discharge
-Colorectal surgeon evaluated and help appreciated.
Recent Left Ureteral Stone
MELISSA
-Stable. L ureteral stent in good position without hydro. Non-obstructing stone seen on CT adjacent to stent.
-Creatinine has normalized to 1
-On-call urology notified about patient readmission for sigmoid diverticulitis.
Paroxysmal Atrial Fibrillation
History of VT / high-grade heart block
-Stable. Continue metoprolol and Eliquis.
-Have some episodes of NSVT. Electrolyte within normal limit. Already on Toprol-XL 25 mg twice daily
-s/p BiV ICD.
Asymptomatic bacteriuria
- Patient have 20K CFU Pseudomonas on urine
- Family questioning if patient have any fistulous tract cystoscopy reports reviewed and nothing to suggest this.
- Follow-up CT abdomen pelvis with IV contrast should able to look into this further if this is true
- Reason for Pseudomonas is likely from last visit antibiotic suppressing non-pseudomonal organism.
Normocytic Anemia
- Unclear etiology - ? mild blood loss anemia due to stone, stent, surgery, etc.
- Stable / slowly improving from prior hospital stay.
Hyperparathyroidism
Hypercalcemia - resolved
- Ca levels increasing from last admission. resolved with IVF
- Not on any chronic medication or other management for known L hyperparathyroid adenoma. Patient is planned to be evaluated by endocrinology in outpatient basis
- Resume back lasix at discharge.
Benign Hypertension
- Stable. Continue metoprolol with holding parameters.
COPD without Acute Exacerbation
- CXR unremarkable. No complaint of cough, dyspnea, etc.
- Continue inhaler regimen. Albuterol PRN.
Abnormal Troponin
- No complaints of chest pain, dyspnea, etc. Unclear rationale for testing.
- EKG is paced.
- Follow troponin to peak and monitor for any symptoms that might be indicative of CAD / CT.
DVT Prophylaxis: On Eliquis
Code Status: Full
More than 30 minutes spent in discharge including
Final examination of the patient
Summarizing hospital stay
Instructions for continuing care to all relevant caregivers
Preparation of discharge records, prescriptions, and referral forms
Total time spent (in minutes): 43 mins
Anticipated Discharge: Today
Subjective/Interval History
-
Date of Service: May 28, 2025
Patient had good bowel movement
No abdominal pain/nausea/vomiting overnight
Remains afebrile
Objective Data
-
Labs:
Laboratory Results
05/28/25
07:35
WBC 20.1 H
Hgb 10.1 L
Hct 31.5 L
Plt Count 361
Sodium 136
Potassium 4.1
Chloride 100
Carbon Dioxide 27
BUN 20 H
Creatinine 1.0
Glucose 135 H
Calcium 10.2
Vital Signs:
Vital Signs
Temp Pulse Resp BP Pulse Ox
97.9 F 82 18 113/57 96
05/28/25 11:00 05/28/25 11:00 05/28/25 11:00 05/28/25 11:00 05/28/25 11:00
I&O
05/27/25 05/28/25 05/29/25
06:59 06:59 06:59
Intake Total 600 / 600
Balance 600 / 600
Review of Systems
-
Respiratory: Reports No Symptoms
Cardiac: Reports No Symptoms
Abdomen/GI: Denies Abdominal Pain, Nausea or Vomiting
Physical Exam
-
General: Comfortable
Cardiac: Regular Rhythm and S1/S2; Negative Murmur or Tachycardic
GI: Soft, Nontender and Nondistended
Neuro: AO x 3
Psych: Calm
--- NOTE | 2025-05-28 13:53 | CM ---
Initial assessment completed with patient. Patient lives alone in a 2 story home with no basement, B/B on 2nd and 1/2 bath on 1st, 1 step to enter. DEAN OF EDUCATION patient was independent in ADL's and ambulation, drives. Does have a B/P cuff. No other DME.
Currently on services with [facility]. No service. No psychiatric hospitalization. Does have a HC POA. PCP is Dr. Quita Lopez. Pharmacy is [facility] in [place]. Discharge POC: Resume [facility].
--- NOTE | 2025-05-28 14:03 | CM ---
Patient has been medically cleared for discharge to home with resumption of [facility] services. Admission IMM within 48 hour timeframe of discharge. Patient has arranged for transport home.
--- NOTE | 2025-05-28 15:18 | W.PN.GS2 ---
Today's Communication / Plan
-
dispo planning
Assessment / Plan
-
80 yo female with recent admission for urosepsis presenting for left sided abdominal pain with significantly leukocytosis. CT imaging with ?mild sigmoid diverticulitis; however difficult to visualize given motion and lack of contrast and would be
atypical presentation for this problem. Significant stool burden was noted. Suspect urinary source of her leukocytosis.
+Large BM s/p enema
Pain completely resolved today
Tolerating diet
WBC improved
Plan:
Ok for discharge from surgical standpoint
Continue current diet
ABX as per primary team upon d/c
Would follow as outpatient for colonoscopy in 6-8 weeks for further evaluation of the bowel
Subjective Data
-
Date of Service: May 28, 2025
Pt seen and examined at bedside with Dr. Vidal around 1030 am. Family present and questions addressed. Patient eating at time of exam and offerning no complaints. Denies pain. Denies nausea.
Objective Data
-
Intake and Output
05/27/25 05/28/25 05/29/25
06:59 06:59 06:59
Intake Total 600 / 600
Balance 600 / 600
Intake:
Oral fluids 480 / 480
IV piggybacks 120 / 120
Other:
Number of approximated MODERATE 3
amounts of urine
Vital Signs
Temp Pulse Resp BP Pulse Ox
97.9 F 82 18 113/57 96
05/28/25 11:00 05/28/25 11:00 05/28/25 11:00 05/28/25 11:00 05/28/25 11:00
Lab Results
05/28/25 07:35
05/28/25 07:35
Calcium 10.2 mg/dl (8.4-10.2) 05/28/25 07:35
Phosphorus 3.1 mg/dl (2.5-4.5) 05/28/25 07:35
Magnesium 2.2 mg/dl (1.6-2.3) 05/28/25 07:35
Total Bilirubin 0.8 mg/dl (0.2-1.3) 05/26/25 19:25
AST 25 U/L (14-36) 05/26/25 19:25
ALT 30 U/L (0-35) 05/26/25 19:25
Alkaline Phosphatase 91 U/L (38-126) 05/26/25 19:25
Total Protein 7.3 g/dl (6.3-8.2) 05/26/25 19:25
Albumin 4.3 g/dl (3.5-5.0) 05/26/25 19:25
Physical Exam
-
NAD
ABD soft, nd, nt
--- NOTE | 2025-05-29 16:03 | W.DCSUMMARY ---
Discharge Summary
Discharge Data
Date of Admission: 05/27/25
Date of Discharge: 05/28/25
-
Pending Results: No
Hospital Course
Discharging Physician : Dr Junaid Jason
Disposition : Home
Primary care physician : Dr Quita Lopez
Principal Discharge diagnosis :
Acute sigmoid diverticulitis
Sepsis
Asymptomatic bacteriuria with Pseudomonas
Acute kidney injury
Chronic Discharge diagnosis :
Paroxysmal atrial fibrillation
History of ventricular tachycardia
High-grade intraventricular block
Normocytic anemia
Hyperparathyroidism
Hypercalcemia
Essential hypertension
Chronic obstructive pulmonary disease
Hospital Course :
Patient is 80-year-old female with no mentioned past medical history came to ER with new onset of fever. Patient was noted to be septic with significant elevated white blood cell count . patient had a CT abdomen pelvis in the ER as part of workup
which showed significant constipation with likely sigmoid diverticulitis. Patient was started on empiric antibiotics and was admitted to medical floor for further management. Colorectal surgery was involved in care who recommended conservative
management. Patient was started on laxative to help with constipation. Patient had improvement in symptoms. Patient had a UA as part of workup as well which apparently was growing 20 k CFU Pseudomonas, although no true supportive sign of UTI.
This is likely in a symptom of bacteriuria. At discharge patient regimen was changed to Levaquin and Flagyl. Patient have underwent recent left ureteroscopic ureteral stent placement and plan for patient to follow-up in urology in office.
Important imaging findings :
None
Procedure findings :
None
Discharge Plan
-
Patient Disposition: Home (Routine Discharge)
Discharge Diagnosis/Procedures: Sigmoid diverticulitis, Recent ureteral stent placement, Constipation
Condition: Fair
Diet: Low Residue
Activity: As tolerated
Driving Restrictions: As prior to admission
Bathing Restrictions: OK to Shower
Others Tests: Follow-up CT abdomen pelvis with IV and oral contrast in next one week
Referrals:
Quita Lopez MD [Family Provider, Family Practice] - in one week
Dae Cleaning MD [Active, Urology] - in one to two weeks
Flaquito Sprague MD [Active, ColoRectal] - in two to four weeks
Prescriptions:
New
bacitracin zinc-polymyxin B [Double Antibiotic (b.tracn Zn)] 500-10,000 unit/gram Ointment
1 applic topical BID Qty: 14.2 0RF
Rx Instructions:
1 application to gluteal skin infection
levofloxacin 750 mg tablet
750 mg PO DAILY Qty: 7 0RF
metronidazole 500 mg tablet
500 mg PO Q8H 7 Days Qty: 21 0RF
polyethylene glycol 3350 [Miralax] 17 gram powder in packet
17 g PO DAILY Qty: 30 2RF
Continued
Trelegy Ellipta 100-62.5-25 mcg Blister With Device
1 inh INHALATION R DAILY
cholecalciferol (vitamin D3) [Vitamin D3] 25 mcg (1,000 unit) capsule
25 mcg PO DAILY Qty: 30 0RF
PreserVision AREDS-2 250-90-40-1 mg Capsule
1 tab PO BID
alendronate [Fosamax] 70 mg Tablet
70 mg PO FR
rosuvastatin [Crestor] 10 mg Tablet
10 mg PO DAILY
Eliquis 2.5 mg Tablet
2.5 mg PO BID Qty: 60 0RF
metoprolol tartrate 25 mg Tablet
25 mg PO BID Qty: 60 0RF
Changed
furosemide 20 mg Tablet
20 mg PO DAILY Qty: 30 0RF
Discharge Orders:
Discharge Patient (As Directed); Ordered 05/28/25
Ordered By: Junaid Jason
Discharge Date and Time
Discharge Date/Time: 05/28/25 14:20
Print Language: THAI
== END 2025-05-28 14:20 | disposition home health service (06) | DRG 872 ==
LOC: 4 EAST ACU 04:21
PROVIDERS: Physician Assistant; ADMITTING PHYSICIAN Hospitalist; ATTENDING PHYSICIAN Hospitalist; CONSULT PHYSICIAN Surgery; EMERGENCY PHYSICIAN Emergency Medicine; FAMILY PHYSICIAN Family Medicine
DX: A41.9 Sepsis, unspecified organism (principal); K57.32 Diverticulitis of large intestine without perforation or abscess without bleeding; N17.9 Acute kidney failure, unspecified; I48.0 Paroxysmal atrial fibrillation; E21.3 Hyperparathyroidism, unspecified; J44.9 Chronic obstructive pulmonary disease, unspecified; I10 Essential (primary) hypertension; K59.00 Constipation, unspecified; I44.7 Left bundle-branch block, unspecified; Z87.891 Personal history of nicotine dependence; D50.0 Iron deficiency anemia secondary to blood loss (chronic); E78.00 Pure hypercholesterolemia, unspecified; Z79.01 Long term (current) use of anticoagulants; Z79.83 Long term (current) use of bisphosphonates; Z79.899 Other long term (current) drug therapy; Z87.442 Personal history of urinary calculi
CPT/HCPCS: 71046; 74176; 80048; 80053; 81003; 81015; 82728; 83540; 83550; 83605; 83735; 83880; 83970; 84100; 84484; 85025; 85027; 86140; 87040; 87077; 87086; 87186; 93005; 94640; 94760; 96361; 96365; 96375; 99285

== ENCOUNTER → 2025-05-30 12:35 | Outpatient (REF) | payer MEDICARE, BC, SELFPAY ==
[2025-05-30 13:16] LABS: Hematocrit 32.6 % (37.0-47.0); Hemoglobin 10.4 g/dL (12.0-16.0); Mean Corp Hgb Conc. 31.9 g/dL (33.0-37.0); Mean Corpuscular Volume 93.4 fL (81.0-99.0); Nucleated Red Blood Cells % 0 %; Platelet Count 344 10^3/uL (130-400); Red Cell Dist. Width 13.4 % (11.5-14.5)
[2025-05-30 13:20] LABS: Urine Character Clear (Clear)
[2025-05-30 13:51] LABS: Blood Urea Nitrogen 33 mg/dl (7-17); Calcium 10.8 mg/dl (8.4-10.2); Carbon Dioxide 24 mmol/L (22-30); Chloride 102 mmol/L (98-107); Glucose 116 mg/dl (70-99); Potassium 4.6 mmol/L (3.5-5.1); Sodium 136 mmol/L (135-145); eGFR 50.48
[2025-05-30 13:54] LABS: Urine Red Blood Cell 0-2 /HPF (0-2)
== END ==
LOC: RAD 12:35
PROVIDERS: ATTENDING PHYSICIAN Family Medicine
DX: N39.0 Urinary tract infection, site not specified (principal); R31.9 Hematuria, unspecified
CPT/HCPCS: 36415; 80048; 81003; 81015; 85025; 87086

== ENCOUNTER 2025-06-03 22:40 | Inpatient (IN) | payer MEDICARE, BC, SELFPAY ==
[2025-06-03 16:58] VITALS: BP 115/44
[2025-06-03 17:30] LABS: Hematocrit 31.0 % (37.0-47.0); Hemoglobin 10.1 g/dL (12.0-16.0); Mean Corp Hgb Conc. 32.6 g/dL (33.0-37.0); Mean Corpuscular Volume 90.9 fL (81.0-99.0); Nucleated Red Blood Cells % 0 %; Platelet Count 309 10^3/uL (130-400); Red Cell Dist. Width 13.9 % (11.5-14.5)
[2025-06-03 17:48] LABS: ALT (SGPT) 20 U/L (0-35); AST (SGOT) 24 U/L (14-36); Albumin 3.5 g/dl (3.5-5.0); Alkaline Phosphatase 81 U/L (38-126); Blood Urea Nitrogen 36 mg/dl (7-17); Calcium 9.6 mg/dl (8.4-10.2); Carbon Dioxide 30 mmol/L (22-30); Chloride 97 mmol/L (98-107); Glucose 114 mg/dl (70-99); Potassium 3.7 mmol/L (3.5-5.1); Sodium 133 mmol/L (135-145); Total Protein 6.0 g/dl (6.3-8.2); eGFR 32.20
--- NOTE | 2025-06-03 17:50 | EDRN ---
Family at desk stating patient has to go to the bathroom. [facility] took patient to restroom and patient is now back with family in waiting room.
[2025-06-03 18:04] LABS: Troponin I 0.063 ng/ml
[2025-06-03 20:00] VITALS: BP 112/60
[2025-06-03 20:47] VITALS: BP 107/62
[2025-06-03 21:00] VITALS: BP 99/61
--- NOTE | 2025-06-03 21:31 | ED.GENMED ---
History of Present Illness
General
Chief Complaint: Breathing Problem
Source: patient and family
Time Seen by Provider: 06/03/25 19:03
History of Present Illness
History of Present Illness:
Note:
CHIEF COMPLAINT(S)
The patient reports an inability to walk due to severe lower extremity pain and swelling consistent with cellulitis.
HISTORY OF PRESENT ILLNESS
The patient is an 80-year-old female who presents with swelling and pain in both legs, which has acutely worsened since this morning. She reports that the swelling began approximately two days ago. The patient takes Furosemide (LASIX) 40 mg twice
daily, but notes that it is not currently effective in reducing the swelling. She also reports experiencing dyspnea, though a recent evaluation by a general practitioner indicated clear lungs. The patients SpO2 levels are satisfactory, and she is not on
home oxygen supplementation.
The patients daughter provided additional history, noting that the patient has had elevated BNP levels, with the most recent reading at 10,000 (down from 22,000 last night). The patient has been admitted three times within the current month. The
most recent admission was for fever caused by urospesis after stent placement, followed by catheter complications.
The patient denies recent fever or heart failure history but exhibits bilateral lower extremity erythema and warmth. No history of redness in her legs has been noted before. The differential diagnosis is complicated by the presence of bilateral
symptoms, potentially suggesting non-infectious causes for the current presentation. The patient�s general practitioner did not rule out pulmonary embolism (PE) and recommended an ultrasound of the legs, though the patient is currently on Apixaban
(Eliquis), reducing the likelihood of PE.
EXTERNAL RECORDS REVIEWED
Records indicate previous admissions for urospesis secondary to a failed catheter post-stent placement. The patients discharge was on Friday, following fluid overload management with diuretics.
SOCIAL DETERMINANTS AFFECTING HEALTH
Daughter mentioned dietary preferences affecting hospital stays, though mention is made in a lighthearted context. No other social determinants significantly impacting health were discussed.
PHYSICAL EXAM
General: Alert, no acute distress.
Skin: Warm, bilateral lower extremity erythema and edema. well perfused. b/l DP pulses. small skin tear to LLE (pt states she tore skin with her nails)
Cardiovascular: No jugular venous distention noted. heart regular
Respiratory: Breath sounds diminished at lung bases, no rales or rhonchi.
Neurological: Alert and oriented to person, place, time, and situation. no focal deficits
abd no distention.
PROBLEM LIST
Acute:
- Bilateral lower extremity swelling and erythema
- Dyspnea
- Recurrent hospital admissions
PLAN
- consider an ultrasound of the lower extremities to evaluate for deep vein thrombosis or other pathology.
- Review recent lab results and previous records to assess any changes in patients condition over multiple admissions.
- Consider adjustments in diuretic therapy given the recurrent fluid overload.
DIFFERENTIAL DIAGNOSIS
The Differential Diagnosis includes, in no particular order and is not limited to:
1. Acute cellulitis
2. Congestive heart failure exacerbation
3. Deep vein thrombosis
4. Venous insufficiency
5. Pulmonary embolism
6. Lipedema
7. Drug-induced edema
8. Bilateral lymphedema
9. Renal insufficiency
10. Medication side effects (diuretics use)
Disposition:
SUMMARY OF ENCOUNTER
The patient, an 80-year-old female, was seen in the emergency department due to an inability to walk caused by severe lower extremity pain and swelling consistent with cellulitis. The patient reported bilateral lower extremity erythema and warmth,
alongside worsening dyspnea. Labs revealed leukocytosis at 15.9 x10^9/L, hemoglobin at 10.1 g/dL, elevated BNP at 10,000 pg/mL, and increased creatinine at 1.6 mg/dL. The patients chest x-ray showed no acute disease. Given her history of cardiac
disease and COPD, myocardial involvement and right ventricular dysfunction were suspected. Due to her difficulty with walking from edema and her apprehension about returning home, a decision was made to admit the patient for IV diuresis. Further
antibiotics were withheld as she was already taking one at home and afebrile. An ultrasound for DVT would be considered if there was no response to IV diuresis.
DISPOSITION
Admit
ASSESSMENT
Patient may have neurological edema related to right ventricular dysfunction, causing significant lower extremity swelling. Differential diagnosis includes ruling out DVT, given her anticoagulant use.
MANAGEMENT OF THE PATIENTS CARE WAS DISCUSSED WITH
Consultation occurred regarding the patients condition that included review of lab work, external medical records, and imaging from previous dates.
PLAN
Admit the patient for IV diuresis due to insufficient response from oral diuretics, considering her history of cardiac disease and right ventricular dysfunction.
INDEPENDENT REVIEW OF LABS AND INTERPRETATION OF TESTS
My independent review of the CBC indicates leukocytosis at 15.9 x10^9/L. My independent review of chemistries indicates a BNP of 10,000 pg/mL and creatinine at 1.6 mg/dL. Chest x-ray interpretation shows no acute disease.
PATIENT EDUCATION AND COUNSELING
The patient was informed about her condition, the admission for IV diuresis, and the rationale for withholding further antibiotics given her current afebrile state and existing medication plan.
MEDICATION RECONCILIATION
IV Furosemide was administered for diuresis while holding off on further antibiotics as the patient is already on Levofloxacin and Apixaban for their respective concerns.
MEDICAL DECISION MAKING
-Number and Complexity of Problems Addressed: Chronic conditions affecting care [Heart failure, COPD, recurrent edema] with a DDx list including acute cellulitis, congestive heart failure exacerbation, deep vein thrombosis, pulmonary embolism,
lipedema, and bilateral lymphedema.
-Data:
Category 1
Non-emergency department records reviewed: I reviewed the patients external records indicating prior elevated BNP and history of cardiac evaluation showing abnormal right ventricular pressures.
Category 2
Clinical information was obtained from the patients daughter providing independent history.
Category 3
Discussion of management and diagnostic considerations with the attending physician regarding the possibility of DVT ultrasound and antibiotic management.
-Risk:
The patient was admitted for IV diuresis and observation due to ongoing edema and difficulty walking not controlled by outpatient measures.
DIAGNOSIS
Edema due to right-sided heart failure (I50.1)
Leukocytosis (D72.829)
Renal insufficiency (N19)
Chronic Obstructive Pulmonary Disease [COPD] with exacerbation (J44.1)
Past History
Past History
ED Past Medical History: COPD and HTN
Social History
Tobacco: Former smoker
Alcohol: None
Phy Exam
Physical Exam
Physical Exam:
.
Scores
Heart Failure Risk
Heart Failure Risk Score: Not Applicable
Sepsis
Sepsis Screening
Sepsis Assessment: Sepsis Ruled Out
Sepsis Screen
Sepsis Screen: Sepsis Ruled Out
Date: 06/04/25
Time: 01:56
Course
Orders/Labs/Results
Orders:
Orders
06/03/25 Breakfast
Cholesterol Lowering
At Your Request: Full Participation
Does patient need a safe tray?: No
Fluid Restriction: 1200 mL/day (40 oz)
Cholesterol Lowering: Sodium, 2 Gram
06/03/25 17:02
ECG [Electrocardiogram (*1)] Urgent
Reason for Study: Shortness of Breath
06/03/25 17:03
EKG- Treatment ONCE
06/03/25 17:15
Complete Blood Count/With Diff Urgent
Comprehensive Metabolic Panel Urgent
NT-proBNP Urgent
Troponin I Urgent
06/03/25 19:04
CR Chest - 2 Views Urgent
Comment:
Reason For Exam: sob
06/03/25 21:36
Apixaban [Eliquis] 2.5 mg PO NOW STA
Furosemide [Lasix] 40 mg IV NOW STA
06/03/25 22:13
Admit/Transfer Patient As Directed
Co-Sign Provider:
Level of Care: Inpatient admission
Assign to:: Telemetry
Physician / Group: bo lozoya
Diagnosis: cellulitis
Reason for Telemetry: Arrhythmia
Date to Stop Telemetry: 06/06/25
Time to Stop Telemetry: 11:00
Reason for Hospitalization: cellulitis
Expected length of stay greater than two midnights?: Yes
ELOS- Estimated Length of Stay in days: 3
I certify the patient meets the requirements for IP care: Yes
PRN Pain Medication Management As Directed
May give lesser potent ordered pain med per pt: Yes
preference::
Protocol:: Medication orders for pain may be administered in a
manner that supports deferring to patient preference
when the pt is:
- Requesting an ordered lesser potent pain medication.
Least to most potent pain medications are defined
as: acetaminophen < NSAID < tramadol < opioids
(morphine, oxycodone, hydromorphone).
- Requesting a lesser dose of the same medication IF
ORDERED.
- Requesting a less intrusive route of administration
if both routes are prescribed by the provider (PO <
IV).
06/03/25 22:14
Code Status As Directed
Resuscitation Status: Do not resuscitate
Reached after discussion with pt or family/Healthcare POA: Yes
06/03/25 22:15
DNR Bracelet Application ONCE
06/03/25 22:46
Acetaminophen [Tylenol/Feverall] 650 mg RECTAL Q4HPRN PRN
Acetaminophen [Tylenol] 650 mg PO Q4HPRN PRN
06/03/25 22:46
HF DIETARY CONSULT Routine
HF EDUCATOR CONSULT Routine
Comment:
Activity As Directed
Activity Level: As Tolerated
Intake/ Output As Directed
Frequency: Per unit guidelines
Patient Education As Directed
Type: CHF folder
Comment: give on admission. Document in Interdisciplinary Education record
Sleep Apnea Assessment by RN As Directed
Comment:
Physician Instructions:
Vital Signs As Directed
Frequency: Other
Additional Instructions:: Q12 or per unit guidelines if more frequent.
Weight As Directed
Frequency: Daily
Type of Scale: Standing Scale
Comment: Daily morning weight. If unable to stand, use balanced bed scale.
Weight As Directed
Frequency: Once
Type of Scale: Standing Scale
Comment: Upon Admission. If unable to stand, use balanced bed scale.
Pulse Ox/cont/shift [RESP] Routine
Quantity: 1
Special Instructions: Daily pulse oximetry at rest. If greater than 92% at rest also obtain pulse oximetry
while ambulating as tolerated.
Ot Eval And Treat Routine
Pt Eval And Treat Routine
Activity Level: As Tolerated
06/03/25 23:39
Basic Metabolic Panel Urgent
Troponin I Q6H
Comment: at admission & every 6 hours x 2 (3 total), ECG to be done with each level
06/03/25 23:45
Piperacillin/Tazo 3.375 Gram [Zosyn] 3.375 gram in 50 ml IV Q6H
06/04/25 04:46
Troponin I Q6H
Comment: at admission & every 6 hours x 2 (3 total), ECG to be done with each level
06/04/25 06:00
Cardiovascular Evaluation IN AM
Complete Blood Count/No Diff IN AM
Magnesium IN AM
TSH Reflex To Free T4 IN AM
06/04/25 08:00
Apixaban [Eliquis] 2.5 mg PO BID
Metoprolol [Lopressor] 25 mg PO BID
Rosuvastatin Calcium [Crestor] 10 mg PO DAILY
[id number] [Trelegy Ellipta] 1 inh INH R DAILY
06/04/25 10:46
Troponin I Q6H
Comment: at admission & every 6 hours x 2 (3 total), ECG to be done with each level
06/05/25 06:00
Complete Blood Count/No Diff IN AM
06/06/25 06:00
Complete Blood Count/No Diff IN AM
06/06/25 11:00
DC Protocol for Telemetry ONCE
06/10/25 06:00
alendronate [Fosamax] 70 mg PO FR@0600
Abnormal Lab Results
06/03/25
17:15
WBC 15.9 H 10^3/uL
(4.8-10.8)
RBC 3.41 L 10^6/uL
(4.20-5.40)
Hgb 10.1 L g/dL
(12.0-16.0)
Hct 31.0 L %
(37.0-47.0)
MCHC 32.6 L g/dL
(33.0-37.0)
Abs Immat Gran (auto) 0.1 H 10^3/uL
(0-0.05)
Absolute Neuts (auto) 13.0 H 10^3/uL
(1.4-6.5)
Absolute Lymphs (auto) 0.9 L 10^3/uL
(1.2-3.4)
Absolute Monos (auto) 1.8 H 10^3/uL
(0.1-0.6)
Immature Gran % 0.8 H %
(0-0.5)
Neutrophils % 81.7 H %
(42.2-75.2)
Lymphocytes % 5.7 L %
(20.5-51.1)
Monocytes % 11.1 H %
(1.7-9.3)
Sodium 133 L mmol/L
(135-145)
Chloride 97 L mmol/L
(98-107)
BUN 36 H mg/dl
(7-17)
Creatinine 1.6 H mg/dL
(0.6-1.0)
Glucose 114 H mg/dl
(70-99)
Troponin I 0.063 H* ng/ml
Total Protein 6.0 L g/dl
(6.3-8.2)
06/03/25 17:15
06/03/25 17:15
Vital Signs
Initial and Last Documented VS:
Initial Vital Signs
Temp Pulse Resp BP Pulse Ox
97.9 F 104 22 115/44 100
06/03/25 16:58 06/03/25 16:58 06/03/25 16:58 06/03/25 16:58 06/03/25 16:58
Last Documented Vital Signs
Temp Pulse Resp BP Pulse Ox
98.5 F 98 24 125/71 96
06/03/25 23:05 06/03/25 23:05 06/03/25 23:05 06/03/25 23:05 06/04/25 00:46
*Pulse Oximetry
SaO2: 96
Oxygen Mode of Delivery: Room air
Patient hypoxic: no
*Critical Care Note
Total Time (30-74mins, 75-104mins- exclusive of procedures): Not Applicable
ED Attending Note
-
Portions of this chart may have been created with voice recognition software.� Occasional wrong word or��sound alike� substitutions may have occurred due to the inherent limitations of voice recognition software.
Discharge Plan
Departure
Patient Disposition: Admit
Date of Disposition: 06/03/25
Time of Disposition: 21:37
Admit to: Med/Surg
Presentation/result/management discussed w/ accepting MD/DO: Hospitalist
Discharge Problem:
Edema, Acute renal insufficiency
Interventions
Interventions:
*Risk Screen - Suicide Last Done: 06/03/25 23:19
*General Assessment Last Done: 06/03/25 16:58
*ED COVID-19 Vaccine History Last Done: 06/03/25 23:19
*Nursing Disposition Last Done: 06/03/25 23:01
ED- Cardiac Assessment Last Done: 06/03/25 18:51
ED- Pulmonary Assessment Last Done: 06/03/25 18:51
Discharge Date and Time
Discharge Date/Time: 06/03/25 23:02
--- NOTE | 2025-06-03 21:45 | HPS.HSE ---
Family Physician
-
Family Physician: Quita Lopez
Chief Complaint
-
b/l LE redness and swelling
History of Present Illness
80-year-old female with past medical history for sigmoid diverticulitis, recent left ureteral stone with a stent, paroxysmal A-fib, hyperparathyroidism, hypertension, COPD who presents with worsening swelling,pain and redness bilateral LE since
this morning. patient stated painful ambulation as well so get sob when she tries to ambulate. she was evaluated by her cardiology yesterday and changed Furosemide (LASIX) 40 mg twice daily from 20mg daily. Patient denied chest pain. Patient
denied any headache, dizziness or syncope. Patient denied any fever, chills. Patient denied any abdominal pain, nausea, vomiting or diarrhea. Patient denied dysuria hematuria.
Patient received a dose of Lasix in the ER. Admitting for further management
Medical History
Past Medical History
Past Medical History: Reports Other
Additional Past Medical History:
Osteoporosis
COPD
Left bundle branch block
Hypertension
Coronary artery disease
Hyperparathyroidism
Kidney stones
E. coli
Past Surgical History: Reports Other
Additional Past Surgical History:
Left elbow fracture repair
Left eye cataract surgery
Defibrillator placement
Left ureteral stenting
Social History
Tobacco: Former Smoker
Alcohol: None
Drug: None
Family History
Family History: Not pertinent
Allergies / Home Medications
Allergies reflects when Allergies were last updated in [employer].
Home Medications with original date entered in [employer]
Allergy/Medication List:
Allergies
Allergy/AdvReac Type Severity Reaction Status Date / Time
No Known Allergies Allergy Verified 06/03/25 17:00
Home Medications
fluticasone fur. 100 mcg-umeclid 62.5 mcg-vilant 25 mcg inhalat.powder (Trelegy Ellipta) 1 inh inhalation R DAILY Lung/Breathing Issues 02/10/24
cholecalciferol (vitamin D3) 25 mcg (1,000 unit) capsule (Vitamin D3) 25 mcg PO DAILY Supplement #30 caps 02/12/24
vit C 250 mg-vit E 90 mg-zinc 40 mg-copper 1 [id number] capsule (PreserVision AREDS-2) 1 tab PO DAILY Supplement 04/21/24
alendronate 70 mg tablet (Fosamax) 70 mg PO FR BONE 05/19/25
rosuvastatin 10 mg tablet (Crestor) 10 mg PO DAILY High Cholesterol 05/19/25
apixaban 2.5 mg tablet (Eliquis) 2.5 mg PO BID #60 tabs 05/23/25
metoprolol tartrate 25 mg tablet 25 mg PO BID #60 tabs 05/23/25
levofloxacin 750 mg tablet 750 mg PO DAILY #7 tabs 05/28/25
metronidazole 500 mg tablet 500 mg PO Q8H 7 days #21 tabs 05/28/25
furosemide 20 mg tablet 20 mg PO BID Fluid Retention/Swelling 06/02/25
Review of Systems
-
Constitutional: Reports No Symptoms
EENT: Reports No Symptoms
Respiratory: Reports Trouble Breathing
Cardiac: Reports No Symptoms
Abdomen/GI: Reports No Symptoms
: Reports No Symptoms
Musculoskeletal: Reports Edema (Lower extremities edema)
Skin: Reports No Symptoms
Neurological: Reports No Symptoms
Endocrine: Reports No Symptoms
Hematologic/Lymphatic: Reports No Symptoms
Psych: Reports No Symptoms
Physical Exam
Vital Signs
Vital Signs
Temp Pulse Resp BP Pulse Ox
97.9 F 97 30 112/60 96
06/03/25 16:58 06/03/25 20:00 06/03/25 20:00 06/03/25 20:00 06/03/25 21:40
Physical Exam
General: Well Developed, Well Nourished and No Apparent Distress
HEENT: NormoCephalic, Moist mucous membranes and Atraumatic
Respiratory: Clear
Cardiac: S1/S2 and Regular Rhythm; No Murmur or Rub
GI: Soft, Non Tender, Non Distended and Normal Bowel Sounds; No Organomegaly
Rectal: Deferred by Provider
Musculoskeletal: No Clubbing and No Cyanosis
Skin: Other (Bilateral lower extremities edema with redness); No Rash
Neuro: AO x 3 and Nonfocal/grossly intact
Psych: Calm
Laboratory Results
-
06/03/25 17:15
06/03/25 17:15
Laboratory Results
Total Bilirubin 0.5 mg/dl (0.2-1.3) 06/03/25 17:15
AST 24 U/L (14-36) 06/03/25 17:15
ALT 20 U/L (0-35) 06/03/25 17:15
Alkaline Phosphatase 81 U/L (38-126) 06/03/25 17:15
Troponin I 0.063 ng/ml H* 06/03/25 17:15
Data Reviewed
-
Diagnostic Radiology: Report Reviewed by me
Lab Data: Labs Reviewed by me
Impression/Plan
-
# Worsening lower extremities edema/redness concern for cellulitis
# Ambulatory dysfunction secondary to lower extremities edema
- PT/OT consulted
- Chest x-ray with no acute disease of the chest, cardiomegaly stable
-iv Zosyn
-tylenol prn for fever and pain
-duplex LE
# Acute renal insufficiency likely from Levaquin/diuretics
-cr 1.6, ctm off diuretics and Levaquin
#concern for CHF
-strict I&O, daily weight gain
-fluid restriction
-hold Lasix for now
-received a dose of Lasix in ER
-ctm
# Diverticulitis
-hold Levaquin and Flagyl
-iv Zosyn for now.
#normocytic Anemia
- Hemoglobin stable at 10.1, no active bleeding
-ctm
# Trope elevation rule out NSTEMI
- Troponin 0.063,trending down
-denied chest pain,
- Continue to monitor
#Recent Left Ureteral Stone
#Paroxysmal Atrial Fibrillation
#History of VT / high-grade heart block
-Stable. Continue metoprolol and Eliquis.
-s/p BiV ICD.
#Hyperparathyroidism
#Benign Hypertension
- Stable. Continue metoprolol with holding parameters.
#COPD without Acute Exacerbation
- CXR unremarkable.
- Continue inhaler regimen.
DVT Prophylaxis: On Eliquis
Code Status: DNR
[2025-06-03 22:00] VITALS: BP 116/51
--- NOTE | 2025-06-03 22:11 | W.PN.UPDATE ---
Update Note
Progress Note Update
This note serves as an addendum to the H&P by mobile phlebotomist Kaitlin FUNES�
HPI
80F HX Nl LVEF, HFpEF, HX Prx AF on Eliquis , B/Nancy edema on DC'd on Frusemide ( 05/28/25) seen at ER:
- pw Both Legs swelling and pain which acutely worsened since this morning
- the swelling began approximately two days ago.
- takes Furosemide (LASIX) 40 mg twice daily, but notes that it is not currently effective in reducing the swelling.
- reports experiencing dyspnea, though a recent evaluation by a brake rider indicated clear lungs. The patients SpO2 levels are satisfactory, and she is not on home oxygen supplementation.
- daughter provided additional history, noting that the patient has had elevated BNP levels, with the most recent reading at 10,000 (down from 22,000 last night).
- The patient has been admitted three times within the current month.
- last recent admission was for fever caused by urospesis after stent placement, followed by catheter complications.
- denies recent fever or heart failure history but exhibits bilateral lower extremity erythema and warmth.
- No history of redness in her legs has been noted before.
- currently on Apixaban (Eliquis) for Prx AF , reducing the likelihood of PE.
Relevant VS
05/28/25
06/03/25
Actual Weight 55.99 kg 59 kg
Relevant Data
05/26/25 05/27/25 05/28/25
23:49 11:45 07:35
WBC
Hgb
Sodium
Chloride
BUN
Creatinine 1.0
eGFR 56.60
Troponin I 0.132 H*
Goc-T-Uskeyhsfyof Pept [id number]
05/30/25 06/03/25
12:54 17:15
WBC 15.1 H 15.9 H
Hgb 10.4 L 10.1 L
Sodium 133 L
Chloride 97 L
BUN 36 H
Creatinine 1.1 H 1.6 H
eGFR 50.48 32.20
Troponin I 0.063 H*
Xpr-U-Ifddazmikzk Pept [id number]
PE
General: Comfortable
Cardiac: RRR, S1/S2; Negative Murmur or Tachycardic
GI: Soft, Nontender and Nondistended
Neuro: AO x 3
NANCY; red tender Nancy with faint blurry margins
Psych: Calm
CXR : No acute disease of the chest. Cardiomegaly. Stable
01/06/24 SHELDON
- LVEF 55-60%.
- Moderate eccentric aortic regurgitation.
- Mildly dilated ascending aorta at 4.1 cm.
Last hospitalist admission: Date of Admission: 05/27/25 - Date of Discharge: 05/28/25
Principal Discharge diagnosis :
Acute sigmoid diverticulitis
Sepsis
Asymptomatic bacteriuria with Pseudomonas
Acute kidney injury
ASSESSMENT & PLAN
suspect b/l LE cellulites
- with remained leucocytosis
- Empiric IV Zosyn
- DC LVQ and Flagyl
- Trend WCC
- B/L Nancy US to complete w/u but less likely DVT in view of [employer] Eliquis
MELISSA - over diuresis vs. cardiorenal syndrome
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
Worsening B/L Nancy edema
Wt gain - OP oxygraph operator escalade PO Lasix to [address] of 20mg BID s of 06/02/25
- Trending down previously elevated pro BNP
- Trending down TPNI
- s/p IV Lasix 40 x 1 at ER
- Hold off further PO Lasix for am and observe Cr in AM
- Hold LVQ for now due to MELISSA
- daily wt and daily BMP
Abnormal Troponin but tending down
- No complaints of chest pain, dyspnea, etc. Unclear rationale for testing.
- Follow troponin one more time in AM
Recent acute Sigmoid Diverticulitis
s/p Sepsis -resolved
- IV Zosyn in place of LVQ and Falgyl
- Hold LVQ due to MELISSA
Constipation
- recent stool burden
- c/w n MiraLAX daily
Recent L Ureteral Stone
-Stabl
- L ureteral stent in good position without hydro per ast admission progress note
In NSR
Paroxysmal AF HX
HX VT / high-grade heart block
- s/p BiV ICD.
- Stable.
- on [employer] Eliquis.
- on [employer] Toprol-XL 25 mg twice daily
Recent asymptomatic bacteriuria with 20K CFU Pseudomonas on urine
- Family questioning if patient have any fistulous tract
- cystoscopy reports reviewed and nothing to suggest this.
Normocytic Anemia
- Unclear etiology - ? mild blood loss anemia due to stone, stent, surgery, etc.
- Stable / slowly improving from prior hospital stay.
Hyperparathyroidism
s/p Hypercalcemia - resolved with IVF
Benign Hypertension
- Stable.
- Continue metoprolol with holding parameters.
COPD without flare
- CXR unremarkable. No complaint of cough, dyspnea, etc.
- Continue inhaler regimen. Albuterol PRN.
DVT Prophylaxis: On Eliquis
Code: DNR per daughter and patient
IP TLM
[2025-06-03] MEDS: ELIQUIS 2.5 MG PO (22:17)
[2025-06-03] MEDS: LASIX 40 MG IV (22:17)
[2025-06-03 23:05] VITALS: BP 125/71; BMI 22.6
--- NOTE | 2025-06-03 23:08 | PTCARENOTE ---
Recieved pt from ED. Pt. scooted from stretcher to bed. Pt AAOx3, oriented to unit, and call love placed within reach. Pt. care ongoing
[2025-06-03 23:32] VITALS: BMI 22.6
[2025-06-03] MEDS: ZOSYN 50 IV (23:49)
[2025-06-04] VITALS (7 sets, daily range): BP systolic 98–126; BP diastolic 58–77; BMI 22.4
[2025-06-04] LABS: Blood Urea Nitrogen 39 mg/dl (7-17); Calcium 9.7 mg/dl (8.4-10.2); Carbon Dioxide 27 mmol/L (22-30); Chloride 97 mmol/L (98-107); Estimated Creatinine Clearance 24 ml/min; Glucose 138 mg/dl (70-99); Potassium 3.2 mmol/L (3.5-5.1); Sodium 132 mmol/L (135-145); eGFR 34.79
[2025-06-04 00:13] LABS: Troponin I 0.061 ng/ml
[2025-06-04] MEDS: KCL 40 MEQ PO (03:49)
[2025-06-04] MEDS: ZOSYN 50 IV ×4 (05:13→21:33)
[2025-06-04 05:25] LABS: Hematocrit 27.8 % (37.0-47.0); Hemoglobin 9.5 g/dL (12.0-16.0); Mean Corp Hgb Conc. 34.2 g/dL (33.0-37.0); Mean Corpuscular Volume 88.5 fL (81.0-99.0); Platelet Count 284 10^3/uL (130-400); Red Cell Dist. Width 13.7 % (11.5-14.5)
[2025-06-04 05:40] LABS: HDL Cholesterol 64 mg/dl; LDL Cholesterol, Calculated 42 mg/dl; Magnesium 1.6 mg/dl (1.6-2.3); Very Low Density Lipoprotein 12 mg/dl (0-30)
[2025-06-04 05:59] LABS: Troponin I 0.062 ng/ml
[2025-06-04] MEDS: SPIRIVA RESPIMAT 2.5 MCG 2 PUFF INH (07:48)
[2025-06-04] MEDS: SYMBICORT 80/4.5 MCG INHALER 2 PUFF INH ×2 (07:48→19:10)
[2025-06-04] MEDS: ELIQUIS 2.5 MG PO (09:24)
[2025-06-04] MEDS: LOPRESSOR 25 MG PO ×2 (09:28→20:49)
[2025-06-04] MEDS: CRESTOR 10 MG PO (09:29)
[2025-06-04 09:45] LABS: Troponin I 0.054 ng/ml
[2025-06-04 10:13] LABS: Blood Urea Nitrogen 34 mg/dl (7-17); Calcium 9.7 mg/dl (8.4-10.2); Carbon Dioxide 30 mmol/L (22-30); Chloride 100 mmol/L (98-107); Estimated Creatinine Clearance 24 ml/min; Glucose 117 mg/dl (70-99); Magnesium 1.7 mg/dl (1.6-2.3); Potassium 3.7 mmol/L (3.5-5.1); Sodium 136 mmol/L (135-145); eGFR 34.79
[2025-06-04 11:54] LABS: Urine Character Cloudy (Clear)
--- NOTE | 2025-06-04 12:16 | W.PN.HOSP.TC ---
Today's Communication/Plan
-
Monitor vital signs see plan
Continue with Zosyn
PT/OT
Increase Eliquis to 5 mg twice daily if no contraindication
Check echo
Urology
Discussed with daughter
Monitor renal function
Assessment / Plan
Assessment / Plan
General: Well Developed, Well Nourished and No Apparent Distress
HEENT: NormoCephalic, Moist mucous membranes and Atraumatic
Respiratory: Clear
Cardiac: S1/S2 and Regular Rhythm; No Murmur or Rub
GI: Soft, Non Tender, Non Distended and Normal Bowel Sounds
Musculoskeletal:No Cyanosis
Skin: Other (Bilateral lower extremities edema with redness)
Neuro: AO x 3 and Nonfocal/grossly intact
Psych: Calm
Worsening lower extremities edema/redness concern for cellulitis
# Ambulatory dysfunction secondary to lower extremities edema
- PT/OT consulted
- Chest x-ray with no acute disease of the chest, cardiomegaly stable
-iv Zosyn
-tylenol prn for fever and pain
Nonocclusive thrombus within the left greater saphenous vein proximally. if no significant hematuria then increase eliquis to 5mg BID. prior to that wants to see if urology would do any intervention
# Acute renal insufficiency likely from Levaquin/diuretics
-cr 1.6, ctm off diuretics and Levaquin
now 1.5, monitor
#chronic CHF
do not suspect acute exacerbation
proBNP elevated however much lower than prior
CXR no acute disease
-strict I&O, daily weight gain
-fluid restriction
-hold Lasix for now
-received a dose of Lasix in ER
-ctm
check echo; if abnormal then will need cardiology evaluation
# Diverticulitis
-hold Levaquin and Flagyl
-iv Zosyn for now.
#normocytic Anemia
- no active bleeding
-ctm
questionable hematuria
per RN tea color urine
UA suggestive of UTI, continue with Zosyn. History of Pseudomonas
Consults urology, recent stent with obstructive uropathy with 8 mm calculus in the distal left ureter with left hydronephrosis.
# Elevated troponin likely nonischemic myocardial injury
Monitor
-denied chest pain,
- Continue to monitor
#Recent Left Ureteral Stone
#Paroxysmal Atrial Fibrillation
#History of VT / high-grade heart block
-Stable. Continue metoprolol and Eliquis.
-s/p BiV ICD.
#Hyperparathyroidism
#Benign Hypertension
- Stable. Continue metoprolol with holding parameters.
#COPD without Acute Exacerbation
- CXR unremarkable.
- Continue inhaler regimen.
DVT Prophylaxis: On Eliquis
Code Status: DNR
I spent a total of 52 minutes with the patient or on the floor. More than 50% of this time involved counseling and coordination of care.
Anticipated Discharge: > 48 hours
Subjective/Interval History
-
Date of Service: June 04, 2025
denies pain
Objective Data
-
Labs:
Laboratory Results
06/04/25 06/04/25
05:10 08:55
WBC 11.0 H
Hgb 9.5 L
Hct 27.8 L
Plt Count 284
Sodium 136
Potassium 3.7
Chloride 100
Carbon Dioxide 30
BUN 34 H
Creatinine 1.5 H
Glucose 117 H
Calcium 9.7
Vital Signs:
Vital Signs
Temp Pulse Resp BP Pulse Ox
98.1 F 97 16 126/76 96
06/04/25 07:30 06/04/25 07:55 06/04/25 07:55 06/04/25 07:30 06/04/25 07:55
I&O
06/03/25 06/04/25 06/05/25
06:59 06:59 06:59
Intake Total 220 / 220
Output Total 1150 / 1150
Balance -930 / -930
[2025-06-04 13:16] LABS: Urine Red Blood Cell 50-60 /HPF (0-2); Urine Squamous Cell 0-2 /LPF (Few)
[2025-06-04 13:17] LABS: Urine White Cell 40-50 /HPF (0-5)
--- NOTE | 2025-06-04 16:39 | CONS.URO ---
Consultation
-
Date/Time Consultation Performed: 1430
Performing Provider: Peffer
Reason for Consultation: Ureteral stone
Medical History
History of Present Illness
80F with recent admission for L ureteral stone and urosepsis s/p L ureteral stent placement
Since this episode she had another admission for mild acute diverticulitis
CT at this time 05/27 showed stent in good position with minimal collecting system fullness
She saw Dr. Cleaning 06/02 and was scheduled for ureteroscopy and stone removal 06/08, planned stent removal 06/17
She presented to ED 06/03 with swelling and erythema of b/l LE
She was admitted for suspected cellulitis
MELISSA was noted and suspected to be due to newly increased diuretic or antibiotic
LE duplex showed a nonocclusive venous thrombus
She denies flank pain
States she had some feeling of decreasing ability to urinate/flow which has since resolved
Some hematuria with red or brown urine
Urinalysis + for RBCs and WBCs, some LE, nit negative
Urology consulted regarding timing of intervention
Past Medical History
Past Medical History: Other (Osteoporosis COPD Left bundle branch block Hypertension Coronary artery disease Hyperparathyroidism Kidney stones)
Past Surgical History: Urological (L ureteral stent) and Other (Left elbow fracture repair Left eye cataract surgery Defibrillator placement)
Social History
Tobacco: Former Smoker
Alcohol: None
Drug: None
Family History
Family History: Reviewed & Not Pertinent
Allergies/Home Medications
Allergies
Allergy/AdvReac Type Severity Reaction Status Date / Time
No Known Allergies Allergy Verified 06/03/25 17:00
Home Medications
�Medication �Instructions �Recorded �Confirmed �Type
fluticasone fur. 100 mcg-umeclid 1 inh inhalation R DAILY 02/10/24 06/03/25 History
62.5 mcg-vilant 25 mcg Lung/Breathing Issues
inhalat.powder (Trelegy Ellipta)
cholecalciferol (vitamin D3) 25 25 mcg PO DAILY Supplement #30 caps 02/12/24 06/02/25 Rx
mcg (1,000 unit) capsule (Vitamin
D3)
vit C 250 mg-vit E 90 mg-zinc 40 1 tab PO DAILY Supplement 04/21/24 06/03/25 History
mg-copper 1 [id number]
capsule (PreserVision AREDS-2)
alendronate 70 mg tablet (Fosamax) 70 mg PO FR BONE 05/19/25 06/03/25 History
rosuvastatin 10 mg tablet (Crestor) 10 mg PO DAILY High Cholesterol 05/19/25 06/03/25 History
apixaban 2.5 mg tablet (Eliquis) 2.5 mg PO BID #60 tabs 05/23/25 06/03/25 Rx
metoprolol tartrate 25 mg tablet 25 mg PO BID #60 tabs 05/23/25 06/03/25 Rx
levofloxacin 750 mg tablet 750 mg PO DAILY #7 tabs 05/28/25 06/03/25 Rx
metronidazole 500 mg tablet 500 mg PO Q8H 7 days #21 tabs 05/28/25 06/03/25 Rx
furosemide 20 mg tablet 40 mg PO BID Fluid 06/02/25 06/03/25 History
Retention/Swelling
Physical Exam
Vital Signs
Vital Signs
Temp Pulse Resp BP Pulse Ox
97.5 F 100 18 109/58 97
06/04/25 12:00 06/04/25 12:00 06/04/25 12:00 06/04/25 12:00 06/04/25 12:00
Lab / Testing Results
Laboratory Results
06/04/25 05:10
06/04/25 08:55
Physical Exam
General: Well Developed, Well Nourished and No Apparent Distress
Respiratory: Non Labored Respirations
Genito-urinary: No Costovertebral Tend
Neuro: AO x 3
Psych: Calm and Intact Judgement
Assessment / Plan
-
80F with L ureteral stone and urosepsis s/p stent placement with planned ureteroscopy scheduled 06/08
Admitted with LE swelling and suspected cellulitis, MELISSA
Ureteral stone
- Planned ureteroscopy 06/[address] Cleaning. This date can likely be kept as long as patient otherwise medically cleared to proceed. Dr. Cleaning will make the final call in regards to whether he will proceed or delay stone procedure
- Recommend switch to heparin drip on 06/06 so anticoagulation can be stopped prior to procedure if necessary
- NPO at [place] 06/08
MELISSA
- most likely pre renal or related to recent medication changes
- Patient's family raised concern for stent obstruction. Low suspicion but a renal US is not unreasonable. We discussed that it can be normal to see mild hydronephrosis with an indwelling stent
- Post void residual bladder scan to rule out urinary retention. Some now resolved obstructive urinary symptoms are most likely sensations related to ureteral stent irritation
Hematuria
- hematuria expected off and on in the setting of indwelling ureteral stent, especially when anticoagulated
- Trend hematuria on Eliquis for LE thromboembolism
Data Reviewed
-
CT Scan: Image personally visualized and interpreted and Discussed with Family
Lab Data: Labs Reviewed
Old Records: Reviewed
[2025-06-04] MEDS: FLUSH (NSS) 1 FLUSH IV (17:44)
[2025-06-04] MEDS: ELIQUIS 5 MG PO (20:45)
[2025-06-04] MEDS: FLUSH (NSS) 2 FLUSH IV (21:33)
[2025-06-05 03:36] VITALS: BP 109/65
[2025-06-05] MEDS: ZOSYN 50 IV ×4 (04:40→21:51)
[2025-06-05] MEDS: FLUSH (NSS) 2 FLUSH IV (04:41)
[2025-06-05 06:00] VITALS: BMI 22.2
[2025-06-05 06:57] LABS: Hematocrit 27.1 % (37.0-47.0); Hemoglobin 8.6 g/dL (12.0-16.0); Mean Corp Hgb Conc. 31.7 g/dL (33.0-37.0); Mean Corpuscular Volume 92.2 fL (81.0-99.0); Nucleated Red Blood Cells % 0 %; Platelet Count 247 10^3/uL (130-400); Red Cell Dist. Width 14.1 % (11.5-14.5)
[2025-06-05 07:00] VITALS: BP 103/61
[2025-06-05 07:22] LABS: Blood Urea Nitrogen 30 mg/dl (7-17); Calcium 9.9 mg/dl (8.4-10.2); Carbon Dioxide 32 mmol/L (22-30); Chloride 105 mmol/L (98-107); Estimated Creatinine Clearance 28 ml/min; Glucose 114 mg/dl (70-99); Magnesium 1.9 mg/dl (1.6-2.3); Potassium 3.5 mmol/L (3.5-5.1); Sodium 138 mmol/L (135-145); eGFR 41.31
[2025-06-05] MEDS: SPIRIVA RESPIMAT 2.5 MCG 2 PUFF INH (07:49)
[2025-06-05] MEDS: SYMBICORT 80/4.5 MCG INHALER 2 PUFF INH ×2 (07:50→19:59)
[2025-06-05] MEDS: LOPRESSOR 25 MG PO (09:49)
[2025-06-05] MEDS: CRESTOR 10 MG PO (09:49)
[2025-06-05] MEDS: ELIQUIS 5 MG PO (09:49)
[2025-06-05 11:30] VITALS: BP 124/64
--- NOTE | 2025-06-05 11:58 | CM ---
CM reviewed chart, patient seen bedside, initial assessment completed. Patients daughters present. Patient reports she lives in [place] (about two hours away) but is currently staying in an Air BNB. Patients daughters are local and report patient is
looking to move to area. Patient reports she was recently discharged from hospital and believes she is current with [facility], will place referral in [facility]. Patient reports prior to hospitalization she was driving, cooking, etc. PCP Quita Lopez,
Pharmacy [facility], confirms prescription coverage. Patient denies insecurities at home. CM will continue to follow for all discharge planning needs.
Plan; [facility]
--- NOTE | 2025-06-05 12:51 | W.PN.HOSP.TC ---
Addendum entered and electronically signed by Son Spence MD 06/05/25 13:44:
now with hematuria. hold eliquis altogether. urology following
monitor
given this would not increase to 5mg when she is able to take eliquis
Original Note:
Today's Communication/Plan
-
Monitor vital signs see plan
PT/OT
Continue with Eliquis
Tomorrow we will transition Eliquis to IV heparin with possibility of OR by urology on 06/08/2025
Continue with Zosyn
Follow cultures
Discussed with daughter
Echo
Assessment / Plan
Assessment / Plan
General: Well Developed, Well Nourished and No Apparent Distress
HEENT: NormoCephalic, Moist mucous membranes and Atraumatic
Respiratory: Clear
Cardiac: S1/S2 and Regular Rhythm; No Murmur or Rub
GI: Soft, Non Tender, Non Distended and Normal Bowel Sounds
Musculoskeletal:No Cyanosis
Skin: Other (Bilateral lower extremities edema with redness)
Neuro: AO x 3 and Nonfocal/grossly intact
Psych: Calm
Worsening lower extremities edema/redness concern for cellulitis
# Ambulatory dysfunction secondary to lower extremities edema
- PT/OT consulted
- Chest x-ray with no acute disease of the chest, cardiomegaly stable
-iv Zosyn
-tylenol prn for fever and pain
Nonocclusive thrombus within the left greater saphenous vein proximally. Increased Eliquis to 5 mg twice daily. Patient to follow-up with hematology outpatient
# Acute renal insufficiency likely from Levaquin/diuretics
-cr 1.6, ctm off diuretics and Levaquin
now 1.3, monitor
#chronic CHF
do not suspect acute exacerbation
proBNP elevated however much lower than prior
CXR no acute disease
-strict I&O, daily weight gain
-fluid restriction
-hold Lasix for now
-received a dose of Lasix in ER
-ctm
check echo; if abnormal then will need cardiology evaluation
# Diverticulitis
Finished Levaquin and Flagyl
#normocytic Anemia
- no active bleeding
-ctm
questionable hematuria
per RN tea color urine
UA suggestive of UTI, continue with Zosyn. History of Pseudomonas
Consulted urology, recent stent with obstructive uropathy with 8 mm calculus in the distal left ureter with left hydronephrosis. Per urology Dr. Cleaning will determine next week if can take to the OR on 06/08/2025. Starting 06/06/2025 will
transition Eliquis to IV heparin in case patient goes to the OR.
# Elevated troponin likely nonischemic myocardial injury
Monitor
-denied chest pain,
- Continue to monitor
#Recent Left Ureteral Stone
#Paroxysmal Atrial Fibrillation
#History of VT / high-grade heart block
-Stable. Continue metoprolol and Eliquis.
-s/p BiV ICD.
#Hyperparathyroidism
#Benign Hypertension
- Stable. Continue metoprolol with holding parameters.
#COPD without Acute Exacerbation
- CXR unremarkable.
- Continue inhaler regimen.
DVT Prophylaxis: On Eliquis
Code Status: DNR
I spent a total of 52 minutes with the patient or on the floor. More than 50% of this time involved counseling and coordination of care.
Anticipated Discharge: > 48 hours
Subjective/Interval History
-
Date of Service: June 05, 2025
denies pain
Objective Data
-
Labs:
Laboratory Results
06/05/25
06:40
WBC 8.5
Hgb 8.6 L
Hct 27.1 L
Plt Count 247
Sodium 138
Potassium 3.5
Chloride 105
Carbon Dioxide 32 H
BUN 30 H
Creatinine 1.3 H
Glucose 114 H
Calcium 9.9
Vital Signs:
Vital Signs
Temp Pulse Resp BP Pulse Ox
98 F 88 16 124/64 95
06/05/25 11:30 06/05/25 11:30 06/05/25 11:30 06/05/25 11:30 06/05/25 11:30
I&O
06/04/25 06/05/25 06/06/25
06:59 06:59 06:59
Intake Total 220 / 220 920 / 920
Output Total 1150 / 1150 1900 / 1900
Balance -930 / -930 -980 / -980
--- NOTE | 2025-06-05 14:13 | W.PN.URO.CBU ---
Today's Communication / Plan
-
Trend HGB, hematuria
Plan for surgery as scheduled Friday unless bleeding requires earlier intervention
Assessment / Plan
-
80F with L ureteral stone and urosepsis s/p stent placement with planned ureteroscopy scheduled 06/08
Admitted with LE swelling and suspected cellulitis, MELISSA
Ureteral stone
- Planned ureteroscopy 06/[address] Cleaning. This date can likely be kept as long as patient otherwise medically cleared to proceed
- Pending echo as part of cardiac eval and cont tx of cellulitis/LE thrombus
- Recommend switch to heparin drip so anticoagulation can be stopped prior to procedure if necessary
- NPO at [place] 06/08
MELISSA
- most likely pre renal or related to recent medication changes
- Improved 06/05, creat 1.3
- Renal US shows no hydro, stent in good position
- Bladder scan 06/04 shows voiding to completion with no PVR
Hematuria
- hematuria expected off and on in the setting of indwelling ureteral stent, especially when anticoagulated
- HGB dropping since admission
- Urine 06/05 is red but clear without clots so would not expect this to account for decrease in HGB
- Would hold Eliquis today and plan to switch to heparin gtt tomorrow if stable
Diagnosis
-
Date of Service: June 05, 2025
-
Patient Diagnosis:
Ureteral stone s/p stent for sepsis
Gross hematuria
Cellulitis
Venous thromboembolism
Post Op Day:
Subjective
-
Noted more blood in urine today
No flank pain
Voiding comfortably
Objective
-
Vital Signs
Temp Pulse Resp BP Pulse Ox
98 F 88 16 124/64 95
06/05/25 11:30 06/05/25 11:30 06/05/25 11:30 06/05/25 11:30 06/05/25 11:30
Intake and Output
06/04/25 06/05/25 06/06/25
06:59 06:59 06:59
Intake Total 220 / 220 920 / 920
Output Total 1150 / 1150 1900 / 1900
Balance -930 / -930 -980 / -980
Intake:
Oral fluids 120 / 120 720 / 720
IV piggybacks 100 / 100 200 / 200
Output:
Liquid stool amount 500 / 500
Rectum 500 / 500
Urine, Voided 1150 / 1150 1400 / 1400
Laboratory Results
06/05/25 06:40
06/05/25 06:40
Physical Exam
-
General - well developed, well nourished, no acute distress
Chest - clear bilaterally
Abdomen - soft, non-tender
Urine voided is red but clear without clots
[2025-06-05 16:24] VITALS: BP 121/63
[2025-06-05 20:16] VITALS: BP 109/56
[2025-06-05] MEDS: LOPRESSOR PO (20:21)
[2025-06-05 22:24] LABS: Hematocrit 26.2 % (37.0-47.0); Hemoglobin 8.6 g/dL (12.0-16.0)
[2025-06-05 22:59] VITALS: BMI 22.2
[2025-06-05 23:47] VITALS: BP 104/57
[2025-06-06] MEDS: ZOSYN 50 IV ×4 (03:17→21:02)
[2025-06-06 03:27] VITALS: BP 104/65
[2025-06-06 06:00] VITALS: BMI 21.7
[2025-06-06] MEDS: CRESTOR 10 MG PO (07:44)
[2025-06-06] MEDS: LOPRESSOR 25 MG PO ×2 (07:45→20:14)
[2025-06-06] MEDS: SPIRIVA RESPIMAT 2.5 MCG 2 PUFF INH (07:45)
[2025-06-06] MEDS: SYMBICORT 80/4.5 MCG INHALER 2 PUFF INH ×2 (07:45→19:42)
[2025-06-06 07:55] VITALS: BP 129/73
[2025-06-06 08:06] LABS: Hematocrit 29.4 % (37.0-47.0); Hemoglobin 9.2 g/dL (12.0-16.0); Mean Corp Hgb Conc. 31.3 g/dL (33.0-37.0); Mean Corpuscular Volume 93.9 fL (81.0-99.0); Nucleated Red Blood Cells % 0 %; Platelet Count 257 10^3/uL (130-400); Red Cell Dist. Width 14.1 % (11.5-14.5)
[2025-06-06 08:47] LABS: Blood Urea Nitrogen 27 mg/dl (7-17); Calcium 10.5 mg/dl (8.4-10.2); Carbon Dioxide 28 mmol/L (22-30); Chloride 107 mmol/L (98-107); Estimated Creatinine Clearance 33 ml/min; Glucose 95 mg/dl (70-99); Magnesium 2.0 mg/dl (1.6-2.3); Potassium 3.7 mmol/L (3.5-5.1); Sodium 140 mmol/L (135-145); eGFR 50.48
[2025-06-06 11:58] VITALS: BP 109/71
--- NOTE | 2025-06-06 12:26 | W.PN.URO.CBU ---
Today's Communication / Plan
-
Trend hematuria
Heparin gtt
Plan for likely ureteroscopy as scheduled 06/08
Assessment / Plan
-
80F with L ureteral stone and urosepsis s/p stent placement with planned ureteroscopy scheduled 06/08
Admitted with LE swelling and suspected cellulitis, MELISSA, LE venous thrombus
Ureteral stone
- Planned ureteroscopy 06/[address] Cleaning. This date can likely be kept as long as patient otherwise medically cleared to proceed. Will discuss with Dr. Cleaning Friday
- Pending echo as part of cardiac eval and cont tx of cellulitis/LE thrombus
- Recommend switch to heparin drip so anticoagulation can be stopped prior to procedure if necessary
- NPO at [facility] 06/08
MELISSA
- Renal US shows no hydro, stent in good position
- Bladder scan 06/04 showed voiding to completion with no PVR
- Creat near baseline 06/06
Hematuria
- hematuria expected off and on in the setting of indwelling ureteral stent, especially when anticoagulated
- HGB dropped since admission but now stable
- Urine is red but clear without clots, so would not expect this to account for significant decrease in HGB
- Hold Eliquis, switch to heparin gtt
Diagnosis
-
Date of Service: June 06, 2025
-
Patient Diagnosis:
Ureteral stone s/p stent for sepsis
Gross hematuria
Cellulitis
Venous thromboembolism
Post Op Day:
Subjective
-
Hematuria persistent but stable
HGB stable
No pain
LE symptoms improving
Objective
-
Vital Signs
Temp Pulse Resp BP Pulse Ox
97.6 F 84 28 109/71 97
06/06/25 11:58 06/06/25 11:58 06/06/25 11:58 06/06/25 11:58 06/06/25 11:58
Intake and Output
06/05/25 06/06/25 06/07/25
06:59 06:59 06:59
Intake Total 920 / 920 540 / 540
Output Total 1900 / 1900 450 / 450
Balance -980 / -980 90 / 90
Intake:
Oral fluids 720 / 720 540 / 540
IV piggybacks 200 / 200
Output:
Liquid stool amount 500 / 500
Rectum 500 / 500
Urine, Voided 1400 / 1400 450 / 450
Other:
Number of approximated MODERATE 3
amounts of urine
Number of unmeasured liquid
stools
Rectum 1
Laboratory Results
06/06/25 06:48
06/06/25 06:48
Physical Exam
-
General - well developed, well nourished, no acute distress
Chest - unlabored
Abdomen - soft, non-tender
--- NOTE | 2025-06-06 12:37 | W.PN.HOSP.TC ---
Today's Communication/Plan
-
Monitor vitals
See plan
Plan for urology procedure 06/08
Continue to monitor off Eliquis
Monitor hemoglobin closely
Continue with Zosyn
Echo
Monitor renal function
Discussed with family
Assessment / Plan
Assessment / Plan
General: Well Developed, Well Nourished and No Apparent Distress
HEENT: NormoCephalic, Moist mucous membranes and Atraumatic
Respiratory: Clear
Cardiac: S1/S2 and Regular Rhythm; No Murmur or Rub
GI: Soft, Non Tender, Non Distended and Normal Bowel Sounds
Skin: Other (Bilateral lower extremities with less edema and redness)
Neuro: AO x 3 and Nonfocal/grossly intact
Psych: Calm
Worsening lower extremities edema/redness concern for cellulitis
# Ambulatory dysfunction secondary to lower extremities edema
- PT/OT consulted
- Chest x-ray with no acute disease of the chest, cardiomegaly stable
-cw iv Zosyn
-tylenol prn for fever and pain
Nonocclusive thrombus within the left greater saphenous vein proximally. patient should follow up with hem/onc outpatient. when resume Eliquis , should not do more than 2.5 mg BID as she tends to bleeding with 5mg BID
# Acute renal insufficiency likely from Levaquin/diuretics
-cr 1.6, ctm off diuretics and Levaquin
now 1.1, monitor
monitor volume status closely as likely will need lasix soon especially when go to OR and will get fluids
#chronic CHF
do not suspect acute exacerbation
proBNP elevated however much lower than prior
CXR no acute disease
-strict I&O, daily weight gain
-fluid restriction
-hold Lasix for now,monitor volume status closely as likely will need lasix soon especially when go to OR and will get fluids
-received a dose of Lasix in ER
check echo; if abnormal then will need cardiology evaluation
#normocytic Anemia
suspect multifactorial, also from acute blood loss from hematuria
looked at iron studies from prior admission; iron sats can be low in infection and ferritin can be falsely high being acute phase. At this time she has other acute issues and given recent infection, would not do IV iron as can make things worse
however once this is resolved then check iron studies again and if low then can do IV iron or may be even PO iron. Monitor patient's hgb closely. I do believe over the time of past 2 months its lower likely due to medical illness.
currently also has darker urine however no sharmin clots.
given her low hgb and ongoing dark urine, there is no urgent need for heparin gtt as she got eliquis yesterday. her clot is also superficial and thus need further monitoring and should benefit from heme/onc follow up as previously suggested
# Diverticulitis
Finished Levaquin and Flagyl
hematuria
per RN dark color urine, no clots; no abdominal pain
UA suggestive of UTI,however urine cx negative. continue with Zosyn. History of Pseudomonas
Consulted urology, recent stent with obstructive uropathy with 8 mm calculus in the distal left ureter with left hydronephrosis. Per urology Dr. Cleaning will determine next week if can take to the OR on 06/08/2025. given her low hgb and ongoing
dark urine, there is no urgent need for heparin gtt as she got eliquis yesterday. her clot is also superficial and thus need further monitoring and should benefit from heme/onc follow up as previously suggested.
from medicine standpoint patient can likely proceed with procedure on 06/08.
renal US without hydro. Tiny nonobstructing bilateral renal calculi
# Elevated troponin likely nonischemic myocardial injury
Monitor
-denied chest pain,
- Continue to monitor
#Recent Left Ureteral Stone
#Paroxysmal Atrial Fibrillation
#History of VT / high-grade heart block
-Stable. Continue metoprolol; eliquis on hold
-s/p BiV ICD.
#Hyperparathyroidism
#Benign Hypertension
- Stable. Continue metoprolol with holding parameters.
#COPD without Acute Exacerbation
- CXR unremarkable.
- Continue inhaler regimen.
albuterol prn
DVT Prophylaxis: SCD's
Code Status: DNR
Discussed with family
I spent a total of 53 minutes with the patient or on the floor. More than 50% of this time involved counseling and coordination of care.
Anticipated Discharge: > 48 hours
Subjective/Interval History
-
Date of Service: June 06, 2025
denies pain
Objective Data
-
Labs:
Laboratory Results
06/06/25
06:48
WBC 8.1
Hgb 9.2 L
Hct 29.4 L
Plt Count 257
Sodium 140
Potassium 3.7
Chloride 107
Carbon Dioxide 28
BUN 27 H
Creatinine 1.1 H
Glucose 95
Calcium 10.5 H
Vital Signs:
Vital Signs
Temp Pulse Resp BP Pulse Ox
97.6 F 84 28 109/71 97
06/06/25 11:58 06/06/25 11:58 06/06/25 11:58 06/06/25 11:58 06/06/25 11:58
I&O
06/05/25 06/06/25 06/07/25
06:59 06:59 06:59
Intake Total 920 / 920 540 / 540
Output Total 1900 / 1900 450 / 450
Balance -980 / -980 90 / 90
[2025-06-06 15:55] VITALS: BP 130/71
[2025-06-06 19:33] VITALS: BP 124/66
[2025-06-06 23:05] VITALS: BP 107/64
[2025-06-07] VITALS (7 sets, daily range): BP systolic 104–142; BP diastolic 53–70; O2SAT 98; BMI 22.2
[2025-06-07] MEDS: ZOSYN 50 IV ×4 (03:33→21:30)
[2025-06-07] MEDS: LOPRESSOR 25 MG PO ×2 (07:25→21:29)
[2025-06-07] MEDS: CRESTOR 10 MG PO (07:27)
--- NOTE | 2025-06-07 08:02 | W.PN.URO.CBU ---
Today's Communication / Plan
-
- Planned ureteroscopy 06/08
- NPO at [facility] 06/08
Assessment / Plan
-
80F with L ureteral stone and urosepsis s/p stent placement with planned ureteroscopy scheduled 06/08
E.coli then Pseudomonas UTI
Admitted with LE swelling and suspected cellulitis, MELISSA, LE venous thrombus
Ureteral stone
Diagnosis
-
Date of Service: June 07, 2025
-
Patient Diagnosis:
LEFT Ureteral stones s/p emergency stenting for sepsis
Gross hematuria
Cellulitis
Venous thromboembolism
Objective
-
Vital Signs
Temp Pulse Resp BP Pulse Ox
98.3 F 92 16 132/68 94
06/07/25 07:25 06/07/25 07:25 06/07/25 07:25 06/07/25 07:25 06/07/25 07:25
Intake and Output
06/06/25 06/07/25 06/08/25
06:59 06:59 06:59
Intake Total 540 / 540 1500 / 1500
Output Total 450 / 450
Balance 90 / 90 1500 / 1500
Intake:
Oral fluids 540 / 540 1400 / 1400
IV fluids (Total) 0 / 0
IV piggybacks 100 / 100
Output:
Urine, Voided 450 / 450
Other:
Number of approximated SMALL 1
amounts of urine
Number of approximated MODERATE 3 2
amounts of urine
Number of approximated LARGE 2
amounts of urine
Number of unmeasured liquid
stools
Rectum 1
Physical Exam
-
General - well developed, well nourished, no acute distress
Chest - clear bilaterally
Abdomen - soft, non-tender, positive bowel sounds, no CVAT, no incisional pain or distention
Genitalia - normal
Rectal - normal
Skin - warm & dry with no rash
Neuro - AOx3, no motor deficits
Extremities - no clubbing, no cyanosis, no edema
Incision - clean, dry
Dressing - clean, dry, intact
[2025-06-07] MEDS: SPIRIVA RESPIMAT 2.5 MCG 2 PUFF INH (08:28)
[2025-06-07] MEDS: SYMBICORT 80/4.5 MCG INHALER 2 PUFF INH ×2 (08:29→19:34)
--- NOTE | 2025-06-07 08:53 | VNURNOTE ---
Chart reviewed. Patient is current with [facility]. Will continue to follow hospital course and DC plans.
[2025-06-07 09:31] LABS: Hematocrit 27.6 % (37.0-47.0); Hemoglobin 8.9 g/dL (12.0-16.0); Mean Corp Hgb Conc. 32.2 g/dL (33.0-37.0); Mean Corpuscular Volume 92.6 fL (81.0-99.0); Nucleated Red Blood Cells % 0 %; Platelet Count 268 10^3/uL (130-400); Red Cell Dist. Width 14.3 % (11.5-14.5); Reticulocyte Count 4.4 % (0.4-2.8)
[2025-06-07 10:02] LABS: Blood Urea Nitrogen 25 mg/dl (7-17); Calcium 10.3 mg/dl (8.4-10.2); Carbon Dioxide 31 mmol/L (22-30); Chloride 104 mmol/L (98-107); Estimated Creatinine Clearance 36 ml/min; Glucose 108 mg/dl (70-99); Magnesium 1.9 mg/dl (1.6-2.3); Potassium 3.8 mmol/L (3.5-5.1); Sodium 138 mmol/L (135-145); eGFR 56.60
--- NOTE | 2025-06-07 12:06 | VNURNOTE ---
PM[facility] liaison met w/pt and daughter at bedside. Attempted to verify address that pt will return to at DC. Daughter and pt 'do not know yet.' They will not be returning to [facility] in [place] [employer]. Daughter and pt requesting DC to short term rehab
first. CM notified.
--- NOTE | 2025-06-07 15:05 | W.PN.HOSP.TC ---
Today's Communication/Plan
-
CT chest PE protocol
Eliquis held with hematuria anticipating cystoscopy tomorrow
Tentatively for cystoscopy on 06/08
Stool for C. difficile
Antibiotics
Zosyn to be continued prophylactically for cystoscopy tomorrow (prior history of pseudomonal bacteremia/complicated UTI with stent in place)
Iron levels/B12
Assessment / Plan
Assessment / Plan
Impression:
Presentation with exertional dyspnea, tiredness, lower extremity edema, symptoms persist despite of increased dose of Lasix.
Lower extremity edema with cellulitis upon presentation.
Left lower extremity DVT
MELISSA
Subacute anemia
Hematuria
Diarrhea
Conditions prior to admission
Recent hospitalization with acute sigmoid diverticulitis.
Recent hospitalization with complicated UTI and left ureteral stone stent in place.
Paroxysmal atrial fibrillation
History of VT/high grade heart block status post BiV ICD
Chronic CHF preserved EF
Essential hypertension
COPD
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
Plan
Persistent exertional shortness of breath with fatigue.
Relatively stable respiratory status with no requirements of supplemental oxygen at rest.
Known history of chronic CHF preserved EF
Trace peripheral edema.
Elevated pro CHF BNP although below her baseline.
Noted increased weight from dry close to 4 pounds up to 57 kg (dry weight close to 55)
Chest x-ray clear
Reports no improvement of symptoms with increased dose of Lasix prior to admission.
Echocardiogram 06/07 with LVEF 73% with hyperdynamic LV function. Mild to moderate AR, mildly dilated ascending aorta 4 cm, no significant change compared to prior TTE October 2023. Stable hepatic cyst
Given recent immobilization as well as lower extremity DVT, she presents high risk for pulmonary embolism. Will go ahead and check CT scan PE protocol
Hold further Lasix pending CT
She has been on anticoagulation with Eliquis for A-fib with recent increased dose to target DVT (currently on hold pending cystoscopy on 06/08)
Bilateral lower extremity cellulitis resolved
With discontinue antibiotics as soon as post cystoscopy (prior history of pseudomonal bacteremia)
Ongoing diarrhea.
Check stool for C. difficile.
Antibiotics
Subacute anemia suspect multifactorial with recent illnesses and hospitalization/blood drawing
Possibly contributing to exertional dyspnea
Hemoglobin remained stable between 9�10.
No evidence for acute blood loss, although known for hematuria.
Check iron studies.
Follow hemoglobin daily
Hematuria.
Recent complicated UTI with left nephrolithiasis status post left ureteral stent.
Extracted hematuria with stent also secondary to anticoagulation with Eliquis.
Tentatively for cystoscopy on 06/08.
Prior history of complicated UTI as well as pseudomonal bacteriuria.
Urine culture negative for this admission
Will continue Zosyn prophylactically throughout cystoscopy
Recent history of diverticulitis.
Completed course of Levaquin and Flagyl
Cardiovascular.
Chronic diastolic CHF.
Paroxysmal atrial fibrillation.
History of VT status post biventricular AICD
Essential hypertension.
Continue Lopressor 25 mg twice daily.
Resume Lasix eventually.
Resume anticoagulation when appropriate
COPD with no evidence of exacerbation)
Continue budesonide/formoterol.
Continue albuterol
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
Recheck ionized calcium
Resume Lasix when appropriate
Overall deconditioning.
PT evaluation with discharge planning
Anticipated Discharge: 24 - 48 hours
Subjective/Interval History
-
Date of Service: June 07, 2025
Objective Data
-
Labs:
Laboratory Results
06/07/25
09:13
WBC 12.4 H
Hgb 8.9 L
Hct 27.6 L
Plt Count 268
Sodium 138
Potassium 3.8
Chloride 104
Carbon Dioxide 31 H
BUN 25 H
Creatinine 1.0
Glucose 108 H
Calcium 10.3 H
Vital Signs:
Vital Signs
Temp Pulse Resp BP Pulse Ox
97.6 F 96 24 122/70 96
06/07/25 11:28 06/07/25 11:28 06/07/25 11:28 06/07/25 11:28 06/07/25 11:28
I&O
06/06/25 06/07/25 06/08/25
06:59 06:59 06:59
Intake Total 540 / 540 1500 / 1500
Output Total 450 / 450
Balance 90 / 90 1500 / 1500
Physical Exam
-
General: Well Developed and No Apparent Distress
HEENT: Normocephalic, Atraumatic and Moist Mucous Membranes
Respiratory: Clear to Auscultation
Cardiac: Regular Rhythm and S1/S2; Negative Murmur, Rub or Gallop
GI: Soft, Nontender, Nondistended and Normal Bowel Sounds; Negative Organomegaly
Rectal: Deferred by Provider
Musculoskeletal: No Clubbing, No Cyanosis and No Edema
Skin: Negative Rash
Neuro: Nonfocal/Grossly Intact
[2025-06-07] MEDS: VISBIOME 2 CAP PO (15:17)
[2025-06-07 16:11] LABS: Iron 68 ug/dl (37-170)
[2025-06-07 16:20] LABS: Total Iron Binding Capacity 236 ug/dl (265-497)
[2025-06-07 16:39] LABS: Ferritin 168.0 ng/ml (11.1-264.0)
[2025-06-07 16:54] LABS: Vitamin B12 337 pg/ml (239-931)
[2025-06-08] VITALS (7 sets, daily range): BP systolic 102–114; BP diastolic 55–66; BMI 22.4
[2025-06-08] MEDS: ZOSYN 50 IV ×2 (04:34→07:51)
[2025-06-08] MEDS: VISBIOME 2 CAP PO (07:50)
[2025-06-08] MEDS: SPIRIVA RESPIMAT 2.5 MCG 2 PUFF INH (07:51)
[2025-06-08] MEDS: CRESTOR 10 MG PO (07:51)
[2025-06-08] MEDS: LOPRESSOR 25 MG PO ×2 (07:51→21:03)
[2025-06-08] MEDS: SYMBICORT 80/4.5 MCG INHALER 2 PUFF INH ×2 (07:52→19:33)
[2025-06-08 07:58] LABS: Hematocrit 28.8 % (37.0-47.0); Hemoglobin 9.2 g/dL (12.0-16.0); Mean Corp Hgb Conc. 31.9 g/dL (33.0-37.0); Mean Corpuscular Volume 92.9 fL (81.0-99.0); Nucleated Red Blood Cells % 0 %; Platelet Count 298 10^3/uL (130-400); Red Cell Dist. Width 14.4 % (11.5-14.5)
[2025-06-08 09:05] LABS: Blood Urea Nitrogen 20 mg/dl (7-17); Calcium 10.5 mg/dl (8.4-10.2); Carbon Dioxide 29 mmol/L (22-30); Chloride 107 mmol/L (98-107); Estimated Creatinine Clearance 36 ml/min; Glucose 93 mg/dl (70-99); Potassium 3.9 mmol/L (3.5-5.1); Sodium 138 mmol/L (135-145); eGFR 56.60
--- NOTE | 2025-06-08 10:05 | W.SUR.PREOP ---
Pre-Operative Surgical Note
-
I have examined this patient prior to the performance of the scheduled procedure.
Consent on chart.
Pre-op checklist completed.
The patient is able to undergo the scheduled procedure.
--- NOTE | 2025-06-08 11:17 | W.IMMPOSTOP ---
Surgical Immed Post Op Note
-
Primary Surgeon:
Black
Pre-op Diagnosis: Left Ureteral Stones; E.coli then Pseudomonas UTI
Post-op Diagnosis: same
Procedure Performed: left ureteroscopy, laser lithotripsy, stent exchange
Anesthesia Type: gen
Specimen / Cultures: stone fragments
Estimated Blood Loss: negligible
Complications: none
Operative Findings: several brown stones in left lower ureter; inummerable sub-mm renal calcifications
4.7 Fr 24 cm left ureteral stent
--- NOTE | 2025-06-08 11:45 | CM ---
Addendum entered by Falguni Erazo 06/08/25 14:02:
Referrals sent to [facility], [facility], [facility], [facility], and [facility].
Original Note:
manager concrete reviewed patient's chart and patient is currently off floor for a procedure, per physical therapy recommendation is for skilled placement will review with patient skilled options.
Plan; Skilled placement.
--- NOTE | 2025-06-08 14:00 | PN.CDI ---
CDI
- -
CDI:
Physician Documentation Request
Admit Date: 06/03/25 22:40
Dear Doctor Felicia,
Patient admitted with lower extremity edema with cellulitis upon admission.
ED note, 'Sepsis Screening...Sepsis Assessment: Sepsis Ruled Out
06/07 Urology note, 'L ureteral stone and urosepsis s/p stent placement....E.coli then Pseudomonas UTI.....LEFT Ureteral stones s/p emergency stenting for sepsis'
Patient received IV Zosyn.
On admission, WBC 15.9, HR > 90 and RR >20.
Please clarify which of the following most accurately describes the status of the patient's infection:
Sepsis, POA
Cellulitis/ UTI only
Other
Sepsis
- Systemic manifestations of infection, with 2 or more SIRS criteria which include:
- Fever >100.9 degrees F or hypothermia < 96.8 degrees F
- Leukocytosis - WBC > 12,000 or leukopenia - WBC < 4,000 or > 10% bands
- Tachycardia > 90 beats per minute
- Tachypnea - RR > 20 breaths per minute or PaCO2 , 32mmHg
Source: Merck Manual 2013
- Indicate the known or suspected organism
- Indicate the known or suspected underlying infection, such as cellulitis/UTI,
Localized Infection Only, Without Systemic Illness
- indicate the site/source, such as cellulitis/UTI,
Other
Use of terms such as suspected, likely, concern for, or probable (associated with a specific diagnosis that is being evaluated, monitored, or treated as if it exists) are acceptable and can be coded in the inpatient setting, when documented at the
time of discharge.
Thank you,
Dorota DEWEY,RN,CCDS
CDI Specialist
Available via tiger text
Please use your independent medical judgment in providing your response.
[2025-06-08] MEDS: LASIX 40 MG PO (14:18)
--- NOTE | 2025-06-08 14:41 | W.PN.HOSP.TC ---
Today's Communication/Plan
-
Transition to oral antibiotics.
Resume Lasix.
Resume Eliquis.
Discharge plan
Assessment / Plan
Assessment / Plan
Impression:
Presentation with exertional dyspnea, tiredness, lower extremity edema, symptoms persist despite of increased dose of Lasix.
Lower extremity edema with cellulitis upon presentation.
Left lower extremity DVT
MELISSA
Subacute anemia
Hematuria
Diarrhea
Conditions prior to admission
Recent hospitalization with acute sigmoid diverticulitis.
Recent hospitalization with complicated UTI and left ureteral stone stent in place.
Paroxysmal atrial fibrillation
History of VT/high grade heart block status post BiV ICD
Chronic CHF preserved EF
Essential hypertension
COPD
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
Plan
Persistent exertional shortness of breath with fatigue.
Relatively stable respiratory status with no requirements of supplemental oxygen at rest.
Known history of chronic CHF preserved EF
Trace peripheral edema.
Elevated pro CHF BNP although below her baseline.
Noted increased weight from dry close to 4 pounds up to 57 kg (dry weight close to 55)
Chest x-ray clear
Reports no improvement of symptoms with increased dose of Lasix prior to admission.
Echocardiogram 06/07 with LVEF 73% with hyperdynamic LV function. Mild to moderate AR, mildly dilated ascending aorta 4 cm, no significant change compared to prior TTE October 2023. Stable hepatic cyst
CT scan of the chest negative for PE. No interstitial or focal infiltrates.
Resume oral Lasix at 40 mg daily and titrate the dose
Resume anticoagulation with Eliquis
Bilateral lower extremity cellulitis resolved
With discontinue antibiotics as soon as post cystoscopy (prior history of pseudomonal bacteremia)
Ongoing diarrhea.
Stool negative for C. difficile
Initiated on probiotics
Subacute anemia suspect multifactorial with recent illnesses and hospitalization/blood drawing
Possibly contributing to exertional dyspnea
Hemoglobin remained stable between 9�10.
No evidence for acute blood loss, although known for hematuria.
Sufficient iron and B12 stores
Hematuria.
Recent complicated UTI with left nephrolithiasis status post left ureteral stent.
Extracted hematuria with stent also secondary to anticoagulation with Eliquis.
Status post cystoscopy 06/25: Left ureteroscopy, laser lithotripsy, stent exchange
Prior history of complicated UTI as well as pseudomonal, E. coli on culture
Urine culture negative for this admission likely false negative given partially treated UTI
Antibiotic transition from Zosyn to Levaquin covering Pseudomonas and E. coli on 06/08 through 06/17 (tentative date for ureteral stent removal). Follow ECG/QT interval while on quinolones
Recent history of diverticulitis.
Completed course of Levaquin and Flagyl
Cardiovascular.
Chronic diastolic CHF.
Paroxysmal atrial fibrillation.
History of VT status post biventricular AICD
Essential hypertension.
Continue Lopressor 25 mg twice daily.
Resume oral Lasix
Resume anticoagulation when appropriate
COPD with no evidence of exacerbation)
Continue budesonide/formoterol.
Continue albuterol
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
Ionized calcium mildly elevated at 1.43.
Resume Lasix
Patient has outpatient follow-up for parotidectomy
Overall deconditioning.
Most likely SNF discharge
PT evaluation with discharge planning
Anticipated Discharge: 24 - 48 hours
Subjective/Interval History
-
Date of Service: June 08, 2025
Objective Data
-
Labs:
Laboratory Results
06/08/25
07:40
WBC 10.4
Hgb 9.2 L
Hct 28.8 L
Plt Count 298
Sodium 138
Potassium 3.9
Chloride 107
Carbon Dioxide 29
BUN 20 H
Creatinine 1.0
Glucose 93
Calcium 10.5 H
Vital Signs:
Vital Signs
Temp Pulse Resp BP Pulse Ox
97.7 F 84 18 105/60 98
06/08/25 12:27 06/08/25 12:27 06/08/25 12:27 06/08/25 12:27 06/08/25 12:27
I&O
06/07/25 06/08/25 06/09/25
06:59 06:59 06:59
Intake Total 1500 / 1500 490 / 490 75 / 75
Output Total 575 / 575
Balance 1500 / 1500 -85 / -85 75 / 75
Physical Exam
-
General: Well Developed and No Apparent Distress
HEENT: Normocephalic, Atraumatic and Moist Mucous Membranes
Respiratory: Clear to Auscultation
Cardiac: Regular Rhythm and S1/S2; Negative Murmur, Rub or Gallop
GI: Soft, Nontender, Nondistended and Normal Bowel Sounds; Negative Organomegaly
Rectal: Deferred by Provider
Musculoskeletal: No Clubbing, No Cyanosis and No Edema
Skin: Negative Rash
Neuro: Nonfocal/Grossly Intact
[2025-06-08] MEDS: ELIQUIS 2.5 MG PO (21:03)
[2025-06-09] MEDS: SPIRIVA RESPIMAT 2.5 MCG 2 PUFF INH (07:36)
[2025-06-09] MEDS: SYMBICORT 80/4.5 MCG INHALER 2 PUFF INH ×2 (07:36→20:14)
[2025-06-09 07:50] VITALS: BP 111/57
[2025-06-09] MEDS: CRESTOR 10 MG PO (07:54)
[2025-06-09] MEDS: LASIX 40 MG PO (07:56)
[2025-06-09] MEDS: LOPRESSOR 25 MG PO ×2 (07:57→20:48)
[2025-06-09] MEDS: ELIQUIS 2.5 MG PO ×2 (07:57→20:44)
[2025-06-09] MEDS: VISBIOME 2 CAP PO (07:58)
--- NOTE | 2025-06-09 08:30 | W.PN.URO.CBU ---
Today's Communication / Plan
-
pt was on abx prior to admission, rendering current urine culture spuriously normal -- she should remain on abx until 06/18, one day AFTER ureteral stent removal
Assessment / Plan
-
80F with L ureteral stone s/p Left Ureteroscopy, Laser Lithotripsy and Stone Removal, Stent Exchange 06/08/2025
E.coli then Pseudomonas UTI
Diagnosis
-
Date of Service: June 09, 2025
-
Post Op Day: 1
Patient Diagnosis:
LEFT Ureteral stones s/p emergency stenting for sepsis; s/p Left Ureteroscopy, Laser Lithotripsy and Stone Removal, Stent Exchange 06/08/2025
Gross hematuria
Cellulitis
Venous thromboembolism
Objective
-
Vital Signs
Temp Pulse Resp BP Pulse Ox
97.4 F 93 16 111/57 94
06/08/25 23:00 06/09/25 07:56 06/09/25 07:41 06/09/25 07:56 06/09/25 07:41
Intake and Output
06/08/25 06/09/25 06/10/25
06:59 06:59 06:59
Intake Total 490 / 490 885 / 885
Output Total 575 / 575
Balance -85 / -85 885 / 885
Intake:
Oral fluids 440 / 440 810 / 810
IV fluids (Total) 75 / 75
normosol 75 / 75
IV piggybacks 50 / 50
Output:
Urine, Voided 575 / 575
Other:
Number of approximated MODERATE 1 3
amounts of urine
Number of approximated LARGE 3 1
amounts of urine
Physical Exam
-
General - well developed, well nourished, no acute distress
Chest - clear bilaterally
Abdomen - soft, non-tender, positive bowel sounds, no CVAT, no incisional pain or distention
Genitalia - normal
Rectal - normal
Skin - warm & dry with no rash
Neuro - AOx3, no motor deficits
Extremities - no clubbing, no cyanosis, no edema
Incision - clean, dry
Dressing - clean, dry, intact
[2025-06-09 08:52] LABS: Blood Urea Nitrogen 27 mg/dl (7-17); Calcium 9.8 mg/dl (8.4-10.2); Carbon Dioxide 30 mmol/L (22-30); Chloride 108 mmol/L (98-107); Estimated Creatinine Clearance 30 ml/min; Glucose 92 mg/dl (70-99); Potassium 3.7 mmol/L (3.5-5.1); Sodium 141 mmol/L (135-145); eGFR 45.48
[2025-06-09 09:31] LABS: Hematocrit 26.5 % (37.0-47.0); Hemoglobin 8.1 g/dL (12.0-16.0); Mean Corp Hgb Conc. 30.6 g/dL (33.0-37.0); Mean Corpuscular Volume 95.7 fL (81.0-99.0); Nucleated Red Blood Cells % 0 %; Platelet Count 296 10^3/uL (130-400); Red Cell Dist. Width 14.6 % (11.5-14.5)
--- NOTE | 2025-06-09 10:34 | CM ---
legal support manager reviewed patient's chart and met with patient and patient is for skilled placement today, options reviewed and patient's daughter has selected [facility], per admissions at [facility] they have a bed for patient today after 3pm,
patient will need COVID testing completed, physician is aware.
Plan; Skilled placement at [facility] today
[facility]
Report [phone]
[2025-06-09 11:54] LABS: COVID-19 Antigen Negative (Negative)
--- NOTE | 2025-06-09 13:59 | W.PN.HOSP.TC ---
Today's Communication/Plan
-
Transition to Cipro
Follow creatinine
Assessment / Plan
Assessment / Plan
Impression:
Presentation with exertional dyspnea, tiredness, lower extremity edema, symptoms persist despite of increased dose of Lasix.
Lower extremity edema with cellulitis upon presentation.
Left lower extremity DVT
MELISSA
Subacute anemia
Hematuria
Diarrhea
Conditions prior to admission
Recent hospitalization with acute sigmoid diverticulitis.
Recent hospitalization with complicated UTI and left ureteral stone stent in place.
Paroxysmal atrial fibrillation
History of VT/high grade heart block status post BiV ICD
Chronic CHF preserved EF
Essential hypertension
COPD
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
Plan
Persistent exertional shortness of breath with fatigue.
Relatively stable respiratory status with no requirements of supplemental oxygen at rest.
Known history of chronic CHF preserved EF
Trace peripheral edema.
Elevated pro CHF BNP although below her baseline.
Noted increased weight from dry close to 4 pounds up to 57 kg (dry weight close to 55)
Chest x-ray clear
Reports no improvement of symptoms with increased dose of Lasix prior to admission.
Echocardiogram 06/07 with LVEF 73% with hyperdynamic LV function. Mild to moderate AR, mildly dilated ascending aorta 4 cm, no significant change compared to prior TTE October 2023. Stable hepatic cyst
CT scan of the chest negative for PE. No interstitial or focal infiltrates.
Resume oral Lasix at 40 mg daily and titrate the dose
Resume anticoagulation with Eliquis
MELISSA.
Noted bump in creatinine 1.2
Monitor closely while on Lasix
Bilateral lower extremity cellulitis resolved
With discontinue antibiotics as soon as post cystoscopy (prior history of pseudomonal bacteremia)
Ongoing diarrhea.
Stool negative for C. difficile
Initiated on probiotics
Subacute anemia suspect multifactorial with recent illnesses and hospitalization/blood drawing
Possibly contributing to exertional dyspnea
Hemoglobin remained stable between 9�10.
No evidence for acute blood loss, although known for hematuria.
Sufficient iron and B12 stores
Hematuria.
Recent complicated UTI with left nephrolithiasis status post left ureteral stent.
Extracted hematuria with stent also secondary to anticoagulation with Eliquis.
Status post cystoscopy 06/25: Left ureteroscopy, laser lithotripsy, stent exchange
Prior history of complicated UTI as well as pseudomonal, E. coli on culture
Urine culture negative for this admission likely false negative given partially treated UTI
Antibiotic transition from Zosyn to Cipro covering Pseudomonas and E. coli on 06/08 through 06/17 (tentative date for ureteral stent removal). Follow ECG/QT interval while on quinolones
Recent history of diverticulitis.
Completed course of Levaquin and Flagyl
Cardiovascular.
Chronic diastolic CHF.
Paroxysmal atrial fibrillation.
History of VT status post biventricular AICD
Essential hypertension.
Continue Lopressor 25 mg twice daily.
Resume oral Lasix
Resume anticoagulation when appropriate
COPD with no evidence of exacerbation)
Continue budesonide/formoterol.
Continue albuterol
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
Ionized calcium mildly elevated at 1.43.
Resume Lasix
Patient has outpatient follow-up for parotidectomy
Overall deconditioning.
Most likely SNF discharge
PT evaluation with discharge planning
Anticipated Discharge: 24 - 48 hours
Subjective/Interval History
-
Date of Service: June 09, 2025
Objective Data
-
Labs:
Laboratory Results
06/09/25
06:28
WBC 10.3
Hgb 8.1 L
Hct 26.5 L
Plt Count 296
Sodium 141
Potassium 3.7
Chloride 108 H
Carbon Dioxide 30
BUN 27 H
Creatinine 1.2 H
Glucose 92
Calcium 9.8
Vital Signs:
Vital Signs
Temp Pulse Resp BP Pulse Ox
98.7 F 93 28 111/57 93
06/09/25 07:50 06/09/25 07:56 06/09/25 07:50 06/09/25 07:56 06/09/25 07:50
I&O
06/08/25 06/09/25 06/10/25
06:59 06:59 06:59
Intake Total 490 / 490 885 / 885
Output Total 575 / 575
Balance -85 / -85 885 / 885
Physical Exam
-
General: Well Developed and No Apparent Distress
HEENT: Normocephalic, Atraumatic and Moist Mucous Membranes
Respiratory: Clear to Auscultation
Cardiac: Regular Rhythm and S1/S2; Negative Murmur, Rub or Gallop
GI: Soft, Nontender, Nondistended and Normal Bowel Sounds; Negative Organomegaly
Rectal: Deferred by Provider
Musculoskeletal: No Clubbing, No Cyanosis and No Edema
Skin: Negative Rash
Neuro: Nonfocal/Grossly Intact
[2025-06-09] MEDS: CIPRO 500 MG PO ×2 (14:00→20:44)
[2025-06-09 15:50] VITALS: BP 139/70
[2025-06-09] MEDS: VENTOLIN NEBULES 2.5 MG INH (20:25)
[2025-06-09 23:21] VITALS: BP 119/75
--- NOTE | 2025-06-10 04:22 | PTCARENOTE ---
06/09/25 Approx: 2245: RN attempted to place DNR bracelet on patient after verbal education. Pt refused bracelet. Pt screamed, agitated, stated, 'you can talk to my daughter tomorrow.' Pt stated, 'I am not wearing that. You guys are supposed to
offer me hope.' Nursing continued education and verbal deescalation with added team support. Due to ineffective regulation, bracelet placed in pt drawer, information to be passed to day shift nursing.
[2025-06-10 06:00] VITALS: BMI 22.3
[2025-06-10 07:19] VITALS: BP 132/72
[2025-06-10] MEDS: SPIRIVA RESPIMAT 2.5 MCG 2 PUFF INH (07:54)
[2025-06-10] MEDS: SYMBICORT 80/4.5 MCG INHALER 2 PUFF INH (07:54)
[2025-06-10 08:19] LABS: Hematocrit 29.6 % (37.0-47.0); Hemoglobin 9.1 g/dL (12.0-16.0); Mean Corp Hgb Conc. 30.7 g/dL (33.0-37.0); Mean Corpuscular Volume 95.2 fL (81.0-99.0); Nucleated Red Blood Cells % 0 %; Platelet Count 324 10^3/uL (130-400); Red Cell Dist. Width 15.0 % (11.5-14.5)
[2025-06-10] MEDS: VISBIOME 2 CAP PO (08:52)
[2025-06-10] MEDS: LOPRESSOR 25 MG PO (08:53)
[2025-06-10] MEDS: CIPRO 500 MG PO (08:53)
[2025-06-10] MEDS: ELIQUIS 2.5 MG PO (08:53)
[2025-06-10] MEDS: CRESTOR 10 MG PO (08:54)
--- NOTE | 2025-06-10 08:58 | W.PN.URO.CBU ---
Today's Communication / Plan
-
po abx as previously prescribed for Pseudomonas to cover through 06/17 when ureteral stent is to be removed
Assessment / Plan
-
80F with L ureteral stone s/p Left Ureteroscopy, Laser Lithotripsy and Stone Removal, Stent Exchange 06/08/2025
E.coli then Pseudomonas UTI
Diagnosis
-
Date of Service: June 10, 2025
-
Post Op Day: 2
Patient Diagnosis:
LEFT Ureteral stones s/p emergency stenting for sepsis; s/p Left Ureteroscopy, Laser Lithotripsy and Stone Removal, Stent Exchange 06/08/2025
Gross hematuria
Cellulitis
Venous thromboembolism
Subjective
-
'I'm frustrated . . . I want to get out of here.'
Objective
-
Vital Signs
Temp Pulse Resp BP Pulse Ox
98.0 F 93 16 132/72 92
06/10/25 07:19 06/10/25 07:58 06/10/25 07:58 06/10/25 07:19 06/10/25 07:58
Intake and Output
06/09/25 06/10/25 06/11/25
06:59 06:59 06:59
Intake Total 885 / 885 1140 / 1140
Balance 885 / 885 1140 / 1140
Intake:
Oral fluids 810 / 810 1140 / 1140
IV fluids (Total) 75 / 75
normosol 75 / 75
Other:
Number of approximated MODERATE 3 3
amounts of urine
Number of approximated LARGE 1
amounts of urine
How many times incontinent 1
SMALL amount urine
Laboratory Results
06/10/25 07:48
Physical Exam
-
General - well developed, well nourished, no acute distress
Care Review
Data Reviewed
Discussed with: Other (with pt)
[2025-06-10 09:04] LABS: Blood Urea Nitrogen 26 mg/dl (7-17); Calcium 10.0 mg/dl (8.4-10.2); Carbon Dioxide 28 mmol/L (22-30); Chloride 109 mmol/L (98-107); Estimated Creatinine Clearance 36 ml/min; Glucose 96 mg/dl (70-99); Potassium 4.2 mmol/L (3.5-5.1); Sodium 140 mmol/L (135-145); eGFR 56.60
--- NOTE | 2025-06-10 10:30 | W.DCSUMMARY ---
Discharge Summary
Discharge Data
Date of Admission: 06/03/25
Date of Discharge: 06/10/25
-
Pending Results: No
Hospital Course
Impression:
Presentation with exertional dyspnea, tiredness, lower extremity edema, symptoms persist despite of increased dose of Lasix.
Lower extremity edema with cellulitis upon presentation.
Left lower extremity DVT
MELISSA
Subacute anemia
Hematuria
Diarrhea
Conditions prior to admission
Recent hospitalization with acute sigmoid diverticulitis.
Recent hospitalization with complicated UTI and left ureteral stone stent in place.
Paroxysmal atrial fibrillation
History of VT/high grade heart block status post BiV ICD
Chronic CHF preserved EF
Essential hypertension
COPD
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
Plan
Persistent exertional shortness of breath with fatigue.
Relatively stable respiratory status with no requirements of supplemental oxygen at rest.
Acute CHF preserved EF
Trace peripheral edema.
Elevated pro CHF BNP although below her baseline.
Noted increased weight from dry close to 4 pounds up to 57 kg (dry weight close to 55)
Chest x-ray clear
Reports no improvement of symptoms with increased dose of Lasix prior to admission.
Echocardiogram 06/07 with LVEF 73% with hyperdynamic LV function. Mild to moderate AR, mildly dilated ascending aorta 4 cm, no significant change compared to prior TTE October 2023. Stable hepatic cyst
CT scan of the chest negative for PE. No interstitial or focal infiltrates.
Given single dose of IV Lasix with will transition to oral Lasix at 40 mg twice daily.
Follow BMP in 5 days postdischarge
Resume anticoagulation with Eliquis
MELISSA.
Noted bump in creatinine 1.2 improved to 1.0 on 06/10.
Patient with no known history of CKD. Follow-up outpatient BMP while on diuretics.
Bilateral lower extremity cellulitis resolved
With discontinue antibiotics as soon as post cystoscopy (prior history of pseudomonal bacteremia)
Recent history of diverticulitis.
Completed course of Levaquin and FlagylOngoing diarrhea.
Stool negative for C. difficile
Initiated on probiotics
Improved
Subacute anemia suspect multifactorial with recent illnesses and hospitalization/blood drawing
Possibly contributing to exertional dyspnea
Hemoglobin remained stable between 9�10.
No evidence for acute blood loss, although known for hematuria.
Sufficient iron and B12 stores
Hematuria.
Recent complicated UTI with left nephrolithiasis status post left ureteral stent.
Extracted hematuria with stent also secondary to anticoagulation with Eliquis.
Status post cystoscopy 06/07: Left ureteroscopy, laser lithotripsy, stent exchange
Prior history of complicated UTI as well as pseudomonal, E. coli on culture
Urine culture negative for this admission likely false negative given partially treated UTI
Antibiotic transition from Zosyn to Cipro covering Pseudomonas and E. coli on 06/08 through 06/17 (tentative date for ureteral stent removal). Follow ECG/QT interval while on quinolones
Follow-up ECG with normal QTc interval
Paroxysmal atrial fibrillation.
History of VT status post biventricular AICD
Essential hypertension.
Continue Lopressor 25 mg twice daily.
Resume oral Lasix
COPD with no evidence of exacerbation)
Continue budesonide/formoterol.
Continue albuterol
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
Ionized calcium mildly elevated at 1.43.
Resume Lasix
Patient has outpatient follow-up for parotidectomy
Overall deconditioning.
Being discharged to subacute rehab for further debilitation
PT evaluation with discharge planning
Discharge Plan
-
Patient Disposition: Shelter/SNF
Discharge Diagnosis/Procedures: Impression:
Presentation with exertional dyspnea, tiredness, lower extremity edema, symptoms persist despite of increased dose of Lasix.
Lower extremity edema with cellulitis upon presentation.
Left lower extremity DVT
MELISSA
Subacute anemia
Hematuria
Diarrhea
Conditions prior to admission:
Recent hospitalization with acute sigmoid diverticulitis.
Recent hospitalization with complicated UTI and left ureteral stone stent in place.
Paroxysmal atrial fibrillation
History of VT/high grade heart block status post BiV ICD
Chronic CHF preserved EF
Essential hypertension
COPD
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
Procedure:
Left Ureteral Stones, s/p Ureteroscopic Removal and Stent Exchange
Diet: Regular
Blood Work: BMP 06/15/25
Referrals:
Quita Lopez MD [Family Provider, Family Practice]
Dae Cleaning MD [Active, Urology]
Referral Note: ureteral stent removal as scheduled
Prescriptions:
New
ciprofloxacin HCl 500 mg Tablet
500 mg PO BID Qty: 14 0RF
Rx Instructions:
through 06/17/25
acetaminophen 325 mg Tablet
650 mg PO Q4HPRN PRN (Reason: mild pain or temp > 100.4 F) Qty: 30 0RF
Lactobac/Bifidobac [Visbiome]
2 cap PO DAILY Qty: 30 0RF
Continued
Trelegy Ellipta 100-62.5-25 mcg Blister With Device
1 inh INHALATION R DAILY
cholecalciferol (vitamin D3) [Vitamin D3] 25 mcg (1,000 unit) capsule
25 mcg PO DAILY Qty: 30 0RF
PreserVision AREDS-2 250-90-40-1 mg Capsule
1 tab PO DAILY
alendronate [Fosamax] 70 mg Tablet
70 mg PO FR
rosuvastatin [Crestor] 10 mg Tablet
10 mg PO DAILY
Eliquis 2.5 mg Tablet
2.5 mg PO BID Qty: 60 0RF
metoprolol tartrate 25 mg Tablet
25 mg PO BID Qty: 60 0RF
furosemide 20 mg tablet
40 mg PO BID
Discontinued
levofloxacin 750 mg tablet
750 mg PO DAILY Qty: 7 0RF
metronidazole 500 mg tablet
500 mg PO Q8H 7 Days Qty: 21 0RF
Discharge Orders:
Discharge Patient (As Directed); Ordered 06/10/25
Ordered By: Uriel Duarte
Discharge Date and Time
Print Language: NAURUAN
--- NOTE | 2025-06-10 10:42 | CM ---
Patient has been cleared for discharge today to [facility], per admissions at [facility] they have a bed for patient. Daughter to transport patient at 12:00. COVID testing was completed yesterday.
[facility]
Report [id number]
[2025-06-10 11:47] VITALS: BP 114/65
[2025-06-13 10:08] LABS: Stone Analysis Mass 38 mg
== END 2025-06-10 14:18 | DRG 988 ==
LOC: 4 WEST ACU 22:40
PROVIDERS: Emergency Medicine; Internal Medicine; Registered Nurse; Specialist; ADMITTING PHYSICIAN Internal Medicine; ATTENDING PHYSICIAN Internal Medicine; CONSULT PHYSICIAN Urology; EMERGENCY PHYSICIAN Emergency Medicine; FAMILY PHYSICIAN Family Medicine
PROC: 0TP98DZ Removal of Intraluminal Device from Ureter, Via Natural or Artificial Opening Endoscopic (ICD-10-PCS; 2025-06-08)
PROC: 0T778DZ Dilation of Left Ureter with Intraluminal Device, Via Natural or Artificial Opening Endoscopic (ICD-10-PCS; 2025-06-08)
PROC: 0TC78ZZ Extirpation of Matter from Left Ureter, Via Natural or Artificial Opening Endoscopic (ICD-10-PCS; 2025-06-08)
DX: L03.115 Cellulitis of right lower limb (principal); I50.32 Chronic diastolic (congestive) heart failure; N20.2 Calculus of kidney with calculus of ureter; N17.9 Acute kidney failure, unspecified; J44.1 Chronic obstructive pulmonary disease with (acute) exacerbation; I5A Non-ischemic myocardial injury (non-traumatic); K57.32 Diverticulitis of large intestine without perforation or abscess without bleeding; I82.812 Embolism and thrombosis of superficial veins of left lower extremity; L03.116 Cellulitis of left lower limb; I11.0 Hypertensive heart disease with heart failure; K59.00 Constipation, unspecified; I48.0 Paroxysmal atrial fibrillation; M81.0 Age-related osteoporosis without current pathological fracture; R31.0 Gross hematuria; I44.7 Left bundle-branch block, unspecified; I25.10 Atherosclerotic heart disease of native coronary artery without angina pectoris; K76.89 Other specified diseases of liver; I77.819 Aortic ectasia, unspecified site; D35.1 Benign neoplasm of parathyroid gland; E21.3 Hyperparathyroidism, unspecified; Z66 Do not resuscitate; Z60.2 Problems related to living alone; Z87.891 Personal history of nicotine dependence; Z87.442 Personal history of urinary calculi; Z86.19 Personal history of other infectious and parasitic diseases; Z87.19 Personal history of other diseases of the digestive system; Z79.01 Long term (current) use of anticoagulants; Z79.51 Long term (current) use of inhaled steroids; Z79.83 Long term (current) use of bisphosphonates; Z95.810 Presence of automatic (implantable) cardiac defibrillator; Z87.440 Personal history of urinary (tract) infections; Z11.52 Encounter for screening for COVID-19
CPT/HCPCS: 71046; 71275; 76000; 76775; 80048; 80053; 80061; 81003; 81015; 82330; 82365; 82607; 82728; 83540; 83550; 83735; 83880; 84443; 84484; 85014; 85018; 85025; 85027; 85045; 87086; 87324; 87449; 87811; 93005; 93306; 93970; 94640; 96374; 97162; 97166; 97530; 99285; C1894; C2617; Q9967

== ENCOUNTER → 2025-06-29 09:38 | Outpatient (REF) | payer MEDICARE, BC, SELFPAY ==
[2025-06-29 10:59] LABS: ALT (SGPT) 13 U/L (0-35); AST (SGOT) 22 U/L (14-36); Albumin 4.3 g/dl (3.5-5.0); Alkaline Phosphatase 73 U/L (38-126); Blood Urea Nitrogen 26 mg/dl (7-17); Calcium 11.2 mg/dl (8.4-10.2); Carbon Dioxide 34 mmol/L (22-30); Chloride 98 mmol/L (98-107); Glucose 115 mg/dl (70-99); Potassium 4.0 mmol/L (3.5-5.1); Sodium 141 mmol/L (135-145); Total Protein 7.4 g/dl (6.3-8.2); eGFR > 60.00
== END ==
LOC: REG 09:38
PROVIDERS: ATTENDING PHYSICIAN Surgery; FAMILY PHYSICIAN Family Medicine
DX: E21.0 Primary hyperparathyroidism (principal)
CPT/HCPCS: 36415; 80053; 83970

== ENCOUNTER 2025-08-02 06:16 | Day surgery (SDC) | payer MEDICARE, BC, SELFPAY ==
[2025-07-19 14:10] VITALS: BMI 20.2
[2025-08-02] VITALS (9 sets, daily range): BP systolic 105–174; BP diastolic 49–85; BMI 20.2
[2025-08-02] MEDS: NORMOSOL-R/PLASMALYTE-A 1000 IV (08:50)
[2025-08-02] MEDS: NEURONTIN 300 MG PO (08:55)
[2025-08-02] MEDS: TYLENOL 1000 MG PO (08:56)
[2025-08-02] MEDS: HEPARIN 5000 UNITS SC (09:14)
[2025-08-02 10:33] LABS: Turbo PTH 446.3 pg/ml (14.5-75.2)
--- NOTE | 2025-08-02 10:39 | OR.RPT ---
Operative Report
Operative Report
Date of Operation: August 02, 2025
Preoperative Diagnosis: Parathyroid hyperparathyroidism - E210
Postoperative Diagnosis: Same
Surgeon: Sergo Oviedo M.D.
Operation: Minimally Invasive Left Inferior Parathyroidectomy - 08879
Anesthesia: GET
Estimated Blood Loss: 1 cc
Drains: None
Specimen: Left Inferior neck nodule, rule out parathyroid adenoma
Complications: None
Procedure:
The patient was taken to the operating room and placed in the usual supine position. After adequate general endotracheal anesthesia was established, the patient's neck was extended, prepped, and draped in the typical sterile fashion. A 4 cm
transcervical incision was made two fingerbreadths above the sternal notch. The skin incision was made with the #15 blade, and this was taken through the skin into the subcutaneous tissue. The underlying platysma muscle was divided, and subplatysmal
flaps were created superiorly to the thyroid cartilage and inferiorly to the sternal notch. Strap muscles were identified and at the midline.
Attention was turned to the left side of the neck. The left thyroid lobe was mobilized medially. During this process, the left recurrent laryngeal nerve was identified and preserved throughout the surgery. The left lower neck nodule was identified
and noted to be enlarged, excised, and sent to the pathology department, which showed a hypercellular parathyroid gland. The intraoperative PTH levels normalized.
After obtaining adequate hemostasis, the strap muscles were reapproximated with #3-0 Vicryl in a running fashion. The platysma muscle was reapproximated with #3-0 Vicryl in an interrupted fashion, and the skin was approximated with #4-0 Monocryl in
a running subcuticular fashion. The Steri-Strips and sterile dressings were placed. The patient tolerated the procedure well. The final instrument, needle, and sponge counts were correct. The patient was extubated and transferred to the PACU.
[2025-08-02 11:09] LABS: Turbo PTH 49.7 pg/ml (14.5-75.2)
== END 2025-08-02 12:50 | disposition home or self-care (01) ==
LOC: SDS 06:16
PROVIDERS: ATTENDING PHYSICIAN Surgery
DX: D35.1 Benign neoplasm of parathyroid gland (principal); E21.3 Hyperparathyroidism, unspecified
CPT/HCPCS: 60500; 83970; 88305; 88331

== ENCOUNTER → 2025-09-08 13:32 | Outpatient (REF) | payer MEDICARE, BC, SELFPAY ==
[2025-09-08 15:48] LABS: Blood Urea Nitrogen 28 mg/dl (7-17); Calcium 9.8 mg/dl (8.4-10.2); Carbon Dioxide 28 mmol/L (22-30); Chloride 98 mmol/L (98-107); Glucose 75 mg/dl (70-99); Potassium 4.8 mmol/L (3.5-5.1); Sodium 134 mmol/L (135-145); eGFR 56.60
== END ==
LOC: REG 13:32
PROVIDERS: ATTENDING PHYSICIAN Nurse Practitioner; FAMILY PHYSICIAN Family Medicine
DX: I50.20 Unspecified systolic (congestive) heart failure (principal)
CPT/HCPCS: 36415; 80048